=== PATIENT | female | born 1955 | race American Indian/Alaskan Native ===

== ENCOUNTER 2016-06-21 21:26 | Emergency (ER) | payer MEDICAID, SELFPAY ==
[2016-06-21 22:43] LABS: Basophils % (Auto) 2.3 % (0.0-1.8); Eosinophils % (Auto) 2.2 % (0.0-4.3); Hematocrit 34.9 % (30.3-42.9); Hemoglobin 11.2 gm/dl (10.1-14.3); Mean Corpuscular HGB Conc 32 % (30-34); Mean Corpuscular Hemoglobin 26 pg (28-32); Mean Corpuscular Volume 81 fl (79-97); Platelet Count 217 K/mm3 (140-440); Red Blood Count 4.28 M/mm3 (3.65-5.03); Red Cell Distribution Width 15.1 % (13.2-15.2); White Blood Count 6.2 K/mm3 (4.5-11.0)
[2016-06-21 22:54] LABS: Anion Gap 20 mmol/L; BUN/Creatinine Ratio 15.71; Blood Urea Nitrogen 22 mg/dL (7-17); Calcium 9.1 mg/dL (8.4-10.2); Carbon Dioxide 23 mmol/L (22-30); Chloride 100.5 mmol/L (98-107); Glucose 178 mg/dL (65-100); Potassium 3.8 mmol/L (3.6-5.0); Sodium 140 mmol/L (137-145)
[2016-06-22 02:21] VITALS: BP 162/98
== END 2016-06-22 02:17 | disposition left against medical advice (07) ==
LOC: ED 21:26
DX: R07.9 Chest pain, unspecified (principal); Z53.21 Procedure and treatment not carried out due to patient leaving prior to being seen by health care provider
CPT/HCPCS: 36415; 80048; 84484; 85025; 93005; 93010

== ENCOUNTER 2017-12-23 12:06 | Emergency (ER) | payer MEDICAID ==
[2017-12-23 13:14] LABS: Basophils % (Auto) 0.6 % (0.0-1.8); Eosinophils # (Auto) 0.1 K/mm3 (0.0-0.4); Eosinophils % (Auto) 0.7 % (0.0-4.3); Hematocrit 32.3 % (30.3-42.9); Hemoglobin 10.5 gm/dl (10.1-14.3); Lymphocytes # (Auto) 1.9 K/mm3 (1.2-5.4); Lymphocytes % (Auto) 23.2 % (13.4-35.0); Mean Corpuscular HGB Conc 33 % (30-34); Mean Corpuscular Hemoglobin 26 pg (28-32); Mean Corpuscular Volume 80 fl (79-97); Monocytes # (Auto) 0.6 K/mm3 (0.0-0.8); Monocytes % (Auto) 7.5 % (0.0-7.3); Platelet Count 332 K/mm3 (140-440); Red Blood Count 4.03 M/mm3 (3.65-5.03); Red Cell Distribution Width 17.3 % (13.2-15.2)
--- NOTE | 2017-12-23 13:16 | Emergency Department Report ---
ED Psych HPI - General Chief Complaint: Psych Stated Complaint: MENTAL EVAL/SUICIDAL Time Seen by Provider: 12/23/17 13:01 Source: patient Mode of arrival: Ambulatory - History of Present Illness Initial Comments: Patient is 62 years old female with history of hypertension and sarcoidosis. Patient presented to the ER complaining OF left-sided chest pain started last night described her pain as sharp and does not radiate. She stated that pain increases when she takes a deep breath. Patient denied any cough or fever or shortness of breath. Patient was sent from her primary care physician for evaluation of suicidal thoughts. Patient stated that she's been very depressed for the last 2 weeks. She stated that she lost a love one six month ago and since then she was not feeling better. Family members who accompanied the patient stated that patient was seen holding a knife trying to cut herself but as soon as she saw them, she stopped. Patient admitted of suicidal thoughts. She denied any homicidal ideation. Patient also denied any auditory or visual hallucination. MD Complaint: suicidal ideation, feels depressed - Related Data Home Medications Medication Instructions Recorded Confirmed Last Taken Insulin Aspart Prot/Aspart(Nf) 30 units SQ AMHY 11/22/12 11/22/12 11/21/12 [Novolog Mix 70/30] 30 units Lisinopril [Zestril] 40 mg PO QDAY 11/22/12 11/22/12 11/22/12 08:20 40mg Metformin HCl [Glumetza] 1,000 mg PO QDAY 11/22/12 12/23/17 11/21/12 100 mg Pregabalin [Lyrica] 50 mg PO DAILY 11/22/12 12/23/17 11/22/12 08:18 20 mg amLODIPine [Norvasc] 10 mg PO DAILY 11/22/12 12/23/17 Unknown Previous Rx's Medication Instructions Recorded Last Taken Type Ibuprofen [Motrin] 600 mg PO Q8H PRN #30 tablet 11/22/12 Unknown Rx Nitrofurantoin Macrocrystal 100 mg PO BID #14 capsule 12/16/17 Unknown Rx [Macrodantin] Phenazopyridine [Pyridium] 100 mg PO TID #9 tab 12/16/17 Unknown Rx Allergies Allergy/AdvReac Type Severity Reaction Status Date / Time No Known Allergies Allergy Verified 12/23/17 12:28 ED Review of Systems ROS: Stated complaint: MENTAL EVAL/SUICIDAL Other details as noted in HPI Comment: All other systems reviewed and negative Constitutional: denies: chills, fever Respiratory: denies: cough, orthopnea, shortness of breath, SOB with exertion, SOB at rest, wheezing Cardiovascular: chest pain Gastrointestinal: denies: abdominal pain, nausea, vomiting Musculoskeletal: denies: back pain Neurological: denies: headache, weakness, numbness, paresthesias, confusion, abnormal gait ED Past Medical Hx - Past Medical History Hx Hypertension: Yes Hx Diabetes: Yes Additional medical history: Shingles, Sarcadosis - Surgical History Additional Surgical History: Back Surgery, c section - Social History Smoking Status: Never Smoker Substance Use Type: None - Medications Home Medications: Home Medications Medication Instructions Recorded Confirmed Last Taken Type Ibuprofen [Motrin] 600 mg PO Q8H PRN #30 tablet 11/22/12 12/23/17 Unknown Rx Insulin Aspart Prot/Aspart(Nf) 30 units SQ AMHY 11/22/12 11/22/12 11/21/12 History [Novolog Mix 70/30] 30 units Lisinopril [Zestril] 40 mg PO QDAY 11/22/12 11/22/12 11/22/12 08:20 History 40mg Metformin HCl [Glumetza] 1,000 mg PO QDAY 11/22/12 12/23/17 11/21/12 History 100 mg Pregabalin [Lyrica] 50 mg PO DAILY 11/22/12 12/23/17 11/22/12 08:18 History 20 mg amLODIPine [Norvasc] 10 mg PO DAILY 11/22/12 12/23/17 Unknown History Nitrofurantoin Macrocrystal 100 mg PO BID #14 capsule 12/16/17 12/23/17 Unknown Rx [Macrodantin] Phenazopyridine [Pyridium] 100 mg PO TID #9 tab 12/16/17 12/23/17 Unknown Rx ED Physical Exam - General Limitations: No Limitations General appearance: alert, in no apparent distress, other (depressed) - Eye Eye exam: Present: normal appearance, PERRL - ENT ENT exam: Present: normal exam, normal orophraynx, mucous membranes moist - Neck Neck exam: Present: normal inspection, full ROM. Absent: tenderness, meningismus, lymphadenopathy, thyromegaly - Respiratory Respiratory exam: Present: normal lung sounds bilaterally. Absent: respiratory distress, wheezes, rales, rhonchi, stridor, accessory muscle use, decreased breath sounds, prolonged expiratory - Cardiovascular Cardiovascular Exam: Present: regular rate, normal rhythm, normal heart sounds - GI/Abdominal GI/Abdominal exam: Present: soft, normal bowel sounds. Absent: distended, tenderness, guarding, rebound, rigid, mass, bruit, pulsatile mass, hernia - Extremities Exam Extremities exam: Present: normal inspection, full ROM, normal capillary refill. Absent: pedal edema, calf tenderness - Back Exam Back exam: Present: normal inspection, full ROM. Absent: CVA tenderness (L), muscle spasm, paraspinal tenderness - Neurological Exam Neurological exam: Present: alert, oriented X3, CN II-XII intact, normal gait, reflexes normal - Psychiatric Psychiatric exam: Present: depressed, suicidal ideation. Absent: agitated, anxious, flat affect, manic, homicidal ideation - Skin Skin exam: Present: warm, intact, normal color ED Course Vital Signs 12/23/17 12:29 Temperature 98.2 F Pulse Rate 93 H Respiratory 16 Rate Blood Pressure 171/94 O2 Sat by Pulse 96 Oximetry ED Medical Decision Making - Lab Data Result diagrams: 12/23/17 12:40 12/23/17 12:40 - EKG Data -: EKG Interpreted by [facility] EKG shows normal: sinus rhythm Rate: normal - EKG Data Interpretation: no acute changes - Radiology Data Radiology results: report reviewed Referring Physician: KYLIE ROMERO Patient Name: FELIPA ORONA Date of : 1955 Sex: Female Report Date: 2017-12-23 Report Status: Finalized Findings [facility] [address] [place] [address] Cat Scan Report Signed Patient: FELIPA ORONA MR#: [id number] : 1955 Acct:[id number] Age/Sex: 62 / F ADM Date: 12/23/17 Loc: ED Attending Dr: Ordering Physician: KYLIE ROMERO Date of Service: 12/23/17 Procedure(s): CT angio chest Accession Number(s): [id number] cc: KYLIE ROMERO FINAL REPORT PROCEDURE: CT ANGIO CHEST TECHNIQUE: Computerized axial tomographic angiography of the chest and pulmonary arteries was performed after the IV injection of iodinated nonionic contrast. The image data was postprocessed using maximum intensity projection (MIP) and 2-dimensional multiplanar reformatted (MPR) techniques. The examination is specifically tailored to the evaluation of the pulmonary arteries per clinical request. HISTORY: Short of breath 786.09, chest pain 786.50, CHEST PAIN COMPARISON: No prior studies are available for comparison. FINDINGS: Heart and pericardium: No pericardial effusion or thickening. Thoracic aorta: Normal. Pulmonary vasculature: Normal. No pulmonary emboli. Lymph nodes: No enlarged thoracic lymph nodes. Lungs: Normal. Pleural space: No effusion, thickening, or pneumothorax. Musculoskeletal structures: No significant abnormality. Upper abdominal structures: No significant abnormality. IMPRESSION: No pulmonary emboli are identified. Transcribed By: [facility] Dictated By: MAICOL MENDOZA M.D. Electronically Authenticated By: MAICOL MENDOZA M.D. Signed Date/Time: 12/23/171554 DD/ 54 TD/TT: 12/23/171554 - Medical Decision Making Ms Orona is 62 years old female with history of hypertension and sarcoidosis. Patient presented to the ER complaining OF left-sided chest pain started last night described her pain as sharp and does not radiate. She stated that pain increases when she takes a deep breath. Patient denied any cough or fever or shortness of breath. Patient was sent from her primary care physician for evaluation of suicidal thoughts. Patient stated that she's been very depressed for the last 2 weeks. She stated that she lost a love one six month ago and since then she was not feeling better. Family members who accompanied the patient stated that patient was seen holding a knife trying to cut herself but as soon as she saw them, she stopped. Patient admitted of suicidal thoughts. She denied any homicidal ideation. Patient also denied any auditory or visual hallucination. In the ER, patient EKG is negative for ST elevation or depression. 2 sets of troponin is negative. Patient d-dimer slightly up and chest CTA is negative for pulmonary embolism. Patient is very tender to palpation on the left upper chest. I believe her symptoms is most likely costochondritis. Patient given Toradol and stated that her symptoms is much better. Patient has been assessed by our psychiatric team and waiting for inpatient psychiatric placement. Critical care attestation.: If time is entered above; I have spent that time in minutes in the direct care of this critically ill patient, excluding procedure time. ED Disposition Clinical Impression: Chest pain, Suicidal ideation, Depression Disposition: DC/TX-65 PSY HOSP/PSY UNIT Is pt being admited?: No Condition: Stable Instructions: Chest Pain (ED) Referrals: PRIMARY CARE, [Primary Care Provider] - 3-5 Days
[2017-12-23 13:33] LABS: Calcium 9.2 mg/dL (8.4-10.2)
[2017-12-23 13:41] LABS: Bacteria,Urine 1+ /HPF (Negative); Bilirubin,Urine NEG (Negative); Blood,Urine SM (Negative); Color,Urine Yellow (Yellow); Hyaline Casts,Urine 2 /LPF; Mucus,Urine FEW /HPF; Protein,Urine <15 mg/dL mg/dL (Negative)
[2017-12-23 13:43] LABS: Amphetamine Screen,Urine PRESUMPTIVE NEGATIVE; Benzodiazepines Screen,Urine PRESUMPTIVE NEGATIVE; Cocaine Screen,Urine PRESUMPTIVE NEGATIVE; Methadone Screen,Urine PRESUMPTIVE NEGATIVE; Opiate Screen,Urine PRESUMPTIVE NEGATIVE
[2017-12-23 13:44] LABS: Urobilinogen,Urine < 2.0 mg/dL (<2.0)
[2017-12-23 13:55] LABS: Cannabinoid Screen,Urine PRESUMPTIVE POSITIVE
[2017-12-23] MEDS ORDERED: NACL 0.9% 1000 ML 1,000 ML IV ONE (14:06)
--- NOTE | 2017-12-23 15:57 | Cat Scan Report ---
FINAL REPORT PROCEDURE: CT ANGIO CHEST TECHNIQUE: Computerized axial tomographic angiography of the chest and pulmonary arteries was performed after the IV injection of iodinated nonionic contrast. The image data was postprocessed using maximum intensity projection (MIP) and 2-dimensional multiplanar reformatted (MPR) techniques. The examination is specifically tailored to the evaluation of the pulmonary arteries per clinical request. HISTORY: Short of breath 786.09, chest pain 786.50, CHEST PAIN COMPARISON: No prior studies are available for comparison. FINDINGS: Heart and pericardium: No pericardial effusion or thickening. Thoracic aorta: Normal. Pulmonary vasculature: Normal. No pulmonary emboli. Lymph nodes: No enlarged thoracic lymph nodes. Lungs: Normal. Pleural space: No effusion, thickening, or pneumothorax. Musculoskeletal structures: No significant abnormality. Upper abdominal structures: No significant abnormality. IMPRESSION: No pulmonary emboli are identified.
[2017-12-24] LABS: Alanine Aminotransferase 6 units/L (7-56); Albumin 3.5 g/dL (3.9-5); LDL Cholesterol,Direct 104 mg/dL (50-130)
[2017-12-24 00:41] LABS: Bilirubin,Direct < 0.2 mg/dL (0-0.2)
[2017-12-24 01:16] LABS: Chol/HDL Ratio 3.68 %; HDL Cholesterol 47 mg/dL (40-59)
[2017-12-24] MEDS ORDERED: NON-FORMULARY (Insulin Aspart Prot/Aspart(Nf) 30 UNITS) SQ SCH (09:15)
[2017-12-24] MEDS ORDERED: NITROFURANTOIN MACROCRYSTAL 100 MG PO SCH (10:00)
[2017-12-24] MEDS ORDERED: NORVASC PO SCH (10:00)
[2017-12-24] MEDS ORDERED: MACROBID PO SCH (10:00)
[2017-12-24] MEDS ORDERED: PYRIDIUM PO ONE (10:23)
[2017-12-24 11:07] VITALS: BP 171/90
[2017-12-24] MEDS ORDERED: PYRIDIUM PO SCH (14:00)
== END 2017-12-24 11:25 ==
LOC: ED 12:06
DX: F32.9 Major depressive disorder, single episode, unspecified (principal); R07.89 Other chest pain; I10 Essential (primary) hypertension; D86.9 Sarcoidosis, unspecified; E11.9 Type 2 diabetes mellitus without complications; Z79.4 Long term (current) use of insulin
CPT/HCPCS: 36415; 71275; 80048; 80061; 80074; 80307; 81001; 82607; 84443; 84484; 85025; 85379; 86592; 93005; 93010; 96372; 99285; G0480; J7030; Q9967; 80320; J1815

== ENCOUNTER 2018-03-08 14:00 | Emergency (ER) | payer MEDICAID ==
[2018-03-08] MEDS ORDERED: ASPIRIN PO ONE (14:52)
[2018-03-08] MEDS ORDERED: ZOFRAN IV ONE (15:46)
[2018-03-08] MEDS ORDERED: TORADOL IV ONE (15:46)
[2018-03-08] MEDS ORDERED: DILAUDID IV ONE (15:46)
[2018-03-08 15:48] LABS: Basophils % (Auto) 0.6 % (0.0-1.8); Eosinophils % (Auto) 0.6 % (0.0-4.3); Hematocrit 32.7 % (30.3-42.9); Hemoglobin 10.7 gm/dl (10.1-14.3); Lymphocytes # (Auto) 2.1 K/mm3 (1.2-5.4); Lymphocytes % (Auto) 32.5 % (13.4-35.0); Mean Corpuscular HGB Conc 33 % (30-34); Mean Corpuscular Volume 83 fl (79-97); Monocytes # (Auto) 0.6 K/mm3 (0.0-0.8); Monocytes % (Auto) 9.1 % (0.0-7.3); Platelet Count 242 K/mm3 (140-440); Red Blood Count 3.94 M/mm3 (3.65-5.03); Red Cell Distribution Width 16.7 % (13.2-15.2)
[2018-03-08 15:55] LABS: INR 0.99 (0.87-1.13)
[2018-03-08 16:19] LABS: BUN/Creatinine Ratio 19; Blood Urea Nitrogen 21 mg/dL (7-17); Calcium 9.2 mg/dL (8.4-10.2); Hemolysis Index 2
[2018-03-08 16:22] LABS: Alanine Aminotransferase 16 units/L (7-56); Albumin 4.2 g/dL (3.9-5)
[2018-03-08 16:27] LABS: Bilirubin,Direct < 0.2 mg/dL (0-0.2)
[2018-03-08] MEDS ORDERED: K-DUR PO ONE (16:42)
--- NOTE | 2018-03-08 16:42 | XRay Report ---
FINAL REPORT EXAM: XR CHEST ROUTINE 2V HISTORY: cp COMPARISON: CT of the chest performed on 12/23/2017 TECHNIQUE: Frontal and lateral views of the chest FINDINGS: The cardiomediastinal silhouette is normal in appearance. The lungs are clear without focal consolidation. No pleural effusion or pneumothorax. No acute bony or soft tissue abnormality. IMPRESSION: No acute cardiopulmonary disease.
[2018-03-08] MEDS ORDERED: NORCO 5/325 PO ONE (17:23)
--- NOTE | 2018-03-08 17:27 | Emergency Department Report ---
ED Chest Pain HPI - General Chief Complaint: Chest Pain Stated Complaint: CHEST PAIN Time Seen by Provider: 03/08/18 15:06 Source: patient, EMS Mode of arrival: Stretcher Limitations: No Limitations - History of Present Illness Initial Comments: 62-year-old female with a past medical history of diabetes, hypertension, shingles, and sarcoidosis presents to hospital pending on that side chest pain since last night. Pain is intense pain is moderate to severe, sharp, worse with palpation, movement, and deep inspiration. Intermittent nausea. Shortness of breath secondary to pain with deep inspiration. Dry cough without fevers. She denies calf tenderness or leg edema. Severity scale (0 -10): 0 - Related Data Home Medications Medication Instructions Recorded Confirmed Last Taken Insulin Aspart Prot/Aspart(Nf) 30 units SQ AMHY 11/22/12 12/24/17 12/23/17 [Novolog Mix 70/30] Lisinopril [Zestril] 40 mg PO QDAY 11/22/12 12/24/17 12/23/17 Metformin HCl [Glumetza] 1,000 mg PO QDAY 11/22/12 12/23/17 11/21/12 100 mg Pregabalin [Lyrica] 50 mg PO DAILY 11/22/12 12/23/17 11/22/12 08:18 20 mg amLODIPine [Norvasc] 10 mg PO DAILY 11/22/12 12/23/17 Unknown Previous Rx's Medication Instructions Recorded Last Taken Type Ibuprofen [Motrin] 600 mg PO Q8H PRN #30 tablet 11/22/12 Unknown Rx Nitrofurantoin Macrocrystal 100 mg PO BID #14 capsule 12/16/17 Unknown Rx [Macrodantin] Phenazopyridine [Pyridium] 100 mg PO TID #9 tab 12/16/17 Unknown Rx HYDROcodone/APAP 5-325 [Lamoni 1 each PO Q6HR PRN #14 tablet 03/08/18 Unknown Rx 5/325] Ibuprofen [Motrin] 800 mg PO Q8HR PRN #30 tablet 03/08/18 Unknown Rx Ondansetron [Zofran Odt] 4 mg PO Q8HR PRN #20 tab.rapdis 03/08/18 Unknown Rx Allergies Allergy/AdvReac Type Severity Reaction Status Date / Time No Known Allergies Allergy Verified 12/23/17 12:28 Heart Score - HEART Score History: Slightly suspicious EKG: Non-specific Age: > 65 Risk factors: > 3 risk factors or hx of atherosclerotic disease Troponin: < normal limit HEART Score: 5 ED Review of Systems ROS: Stated complaint: CHEST PAIN Other details as noted in HPI Comment: All other systems reviewed and negative ED Past Medical Hx - Past Medical History Hx Hypertension: Yes Hx Diabetes: Yes Additional medical history: Shingles, Sarcadosis - Surgical History Additional Surgical History: Back Surgery, c section - Social History Smoking Status: Never Smoker - Medications Home Medications: Home Medications Medication Instructions Recorded Confirmed Last Taken Type Ibuprofen [Motrin] 600 mg PO Q8H PRN #30 tablet 11/22/12 12/23/17 Unknown Rx Insulin Aspart Prot/Aspart(Nf) 30 units SQ AMHY 11/22/12 12/24/17 12/23/17 History [Novolog Mix 70/30] Lisinopril [Zestril] 40 mg PO QDAY 11/22/12 12/24/17 12/23/17 History Metformin HCl [Glumetza] 1,000 mg PO QDAY 11/22/12 12/23/17 11/21/12 History 100 mg Pregabalin [Lyrica] 50 mg PO DAILY 11/22/12 12/23/17 11/22/12 08:18 History 20 mg amLODIPine [Norvasc] 10 mg PO DAILY 11/22/12 12/23/17 Unknown History Nitrofurantoin Macrocrystal 100 mg PO BID #14 capsule 12/16/17 12/23/17 Unknown Rx [Macrodantin] Phenazopyridine [Pyridium] 100 mg PO TID #9 tab 12/16/17 12/23/17 Unknown Rx HYDROcodone/APAP 5-325 [Lamoni 1 each PO Q6HR PRN #14 tablet 03/08/18 Unknown Rx 5/325] Ibuprofen [Motrin] 800 mg PO Q8HR PRN #30 tablet 03/08/18 Unknown Rx Ondansetron [Zofran Odt] 4 mg PO Q8HR PRN #20 tab.rapdis 03/08/18 Unknown Rx ED Physical Exam - General Limitations: No Limitations - Other Other exam information: General: No limitations, patient is alert in no acute distress Head exam: Atraumatic, normocephalic Eyes exam: Normal appearance, pupils equal reactive to light, extraocular movements intact ENT: Moist mucous membrane, normal oropharynx Neck exam: Normal inspection, full range of motion, no meningismus nontender Respiratory exam: Clear to auscultation bilateral, no wheezes, rales, crackles Cardiovascular: Normal rate and rhythm, reproducible left anterior chest wall tenderness to left upper chest wall Abdomen: Soft, nondistended, and nontender, with normal bowel sounds, no rebound, or guarding Extremity: Full range of motion normal inspection no deformity, no calf tenderness or edema Back: Normal Inspection, full range of motion, no tenderness Neurologic: Alert, oriented x3, cranial nerves intact, no motor or sensory deficit Psychiatric: normal affect, normal mood Skin: Warm, dry, intact ED Course Vital Signs 03/08/18 03/08/18 03/08/18 14:52 15:27 16:05 Temperature 98.4 F Pulse Rate 89 Respiratory 16 16 15 Rate Blood Pressure 158/76 [Left] O2 Sat by Pulse 100 100 Oximetry 03/08/18 03/08/18 16:35 16:52 Temperature 98.3 F Pulse Rate 78 Respiratory 17 17 Rate Blood Pressure 105/78 [Left] O2 Sat by Pulse 98 Oximetry JULIO score - Julio Score Age > 65: (0) No Aspirin use within the Past 7 Days: (0) No 3 or more CAD Risk Factors: (1) Yes 2 or more Angina events in past 24 hrs: (0) No Known CAD with more than 50% Stenosis: (0) No Elevated Cardiac Markers: (0) No ST Deviation Greater than 0.5mm: (0) No JULIO Score: 1 ED Medical Decision Making - Lab Data Result diagrams: 03/08/18 15:16 03/08/18 15:16 Lab Results 03/08/18 03/08/18 03/08/18 Range/Units 15:16 15:16 15:16 WBC 6.4 (4.5-11.0) K/mm3 RBC 3.94 (3.65-5.03) M/mm3 Hgb 10.7 (10.1-14.3) gm/dl Hct 32.7 (30.3-42.9) % MCV 83 (79-97) fl MCH 27 L (28-32) pg MCHC 33 (30-34) % RDW 16.7 H (13.2-15.2) % Plt Count 242 (140-440) K/mm3 Lymph % (Auto) 32.5 (13.4-35.0) % [place] % (Auto) 9.1 H (0.0-7.3) % Eos % (Auto) 0.6 (0.0-4.3) % Baso % (Auto) 0.6 (0.0-1.8) % Lymph # 2.1 (1.2-5.4) K/mm3 [place] # 0.6 (0.0-0.8) K/mm3 Eos # 0.0 (0.0-0.4) K/mm3 Baso # 0.0 (0.0-0.1) K/mm3 Seg Neutrophils % 57.2 (40.0-70.0) % Seg Neutrophils # 3.7 (1.8-7.7) K/mm3 PT 13.5 (12.2-14.9) Sec. INR 0.99 (0.87-1.13) D-Dimer (0-234) ng/mlDDU Sodium 141 (137-145) mmol/L Potassium 3.4 L (3.6-5.0) mmol/L Chloride 101.7 (98-107) mmol/L Carbon Dioxide 25 (22-30) mmol/L Anion Gap 18 mmol/L BUN 21 H (7-17) mg/dL Creatinine 1.1 (0.7-1.2) mg/dL Estimated GFR > 60 ml/min BUN/Creatinine Ratio 19 % Glucose 60 L (65-100) mg/dL Calcium 9.2 (8.4-10.2) mg/dL Total Bilirubin (0.1-1.2) mg/dL Direct Bilirubin (0-0.2) mg/dL Indirect Bilirubin mg/dL AST (5-40) units/L ALT (7-56) units/L Alkaline Phosphatase (35-129) units/L Troponin T < 0.010 (0.00-0.029) ng/mL Total Protein (6.3-8.2) g/dL Albumin (3.9-5) g/dL Albumin/Globulin Ratio % Lipase (13-60) units/L 03/08/18 03/08/18 03/08/18 Range/Units 15:16 15:42 16:42 WBC (4.5-11.0) K/mm3 RBC (3.65-5.03) M/mm3 Hgb (10.1-14.3) gm/dl Hct (30.3-42.9) % MCV (79-97) fl MCH (28-32) pg MCHC (30-34) % RDW (13.2-15.2) % Plt Count (140-440) K/mm3 Lymph % (Auto) (13.4-35.0) % [place] % (Auto) (0.0-7.3) % Eos % (Auto) (0.0-4.3) % Baso % (Auto) (0.0-1.8) % Lymph # (1.2-5.4) K/mm3 [place] # (0.0-0.8) K/mm3 Eos # (0.0-0.4) K/mm3 Baso # (0.0-0.1) K/mm3 Seg Neutrophils % (40.0-70.0) % Seg Neutrophils # (1.8-7.7) K/mm3 PT (12.2-14.9) Sec. INR (0.87-1.13) D-Dimer 237.8 H (0-234) ng/mlDDU Sodium (137-145) mmol/L Potassium (3.6-5.0) mmol/L Chloride (98-107) mmol/L Carbon Dioxide (22-30) mmol/L Anion Gap mmol/L BUN (7-17) mg/dL Creatinine (0.7-1.2) mg/dL Estimated GFR ml/min BUN/Creatinine Ratio % Glucose (65-100) mg/dL Calcium (8.4-10.2) mg/dL Total Bilirubin 0.20 (0.1-1.2) mg/dL Direct Bilirubin < 0.2 (0-0.2) mg/dL Indirect Bilirubin 0.0 mg/dL AST 18 (5-40) units/L ALT 16 (7-56) units/L Alkaline Phosphatase 91 (35-129) units/L Troponin T < 0.010 (0.00-0.029) ng/mL Total Protein 7.2 (6.3-8.2) g/dL Albumin 4.2 (3.9-5) g/dL Albumin/Globulin Ratio 1.4 % Lipase 39 (13-60) units/L - EKG Data -: EKG Interpreted by Me EKG shows normal: sinus rhythm, axis (qrs 29), QRS complexes (qrsd 88), ST-T waves (no stemi) Rate: normal (72) - EKG Data When compared to previous EKG there are: no significant change - Radiology Data Radiology results: report reviewed (cxr: naf) - Medical Decision Making Patient has reproducible left anterior chest wall tenderness movement and palpation as well as deep inspiration. Symptoms improving with meds in the ED. ED workup unremarkable with cardiac enzymes negative 2, EKG unchanged compared to previous and a d-dimer less than 250. Patient be discharged home with symptomatic treatment and PMD follow-up. - Differential Diagnosis [place], PE, chest wall tenderness, costochondritis, pneumothorax, pleurisy Critical Care Time: No Critical care attestation.: If time is entered above; I have spent that time in minutes in the direct care of this critically ill patient, excluding procedure time. ED Disposition Clinical Impression: Chest wall pain Disposition: DC- TO HOME OR SELFCARE Is pt being admited?: No Does the pt Need Aspirin: No Condition: Stable Instructions: Chest Pain (ED) Additional Instructions: Take the medication as prescribed. Follow up with your doctor or the doctors/clinic provided. Return if symptoms worsen as indicated by your discharge instructions Prescriptions: HYDROcodone/APAP 5-325 [Lamoni 5/325] 1 each PO Q6HR PRN #14 tablet PRN Reason: Pain Ibuprofen [Motrin] 800 mg PO Q8HR PRN #30 tablet PRN Reason: Pain, Moderate (4-6) Ondansetron [Zofran Odt] 4 mg PO Q8HR PRN #20 tab.rapdis PRN Reason: Nausea And Vomiting Referrals: PRIMARY CARE, [Primary Care Provider] - 3-5 Days [facility] [Provider Group] - 3-5 Days ISHMAEL AGUIRRE DO [Staff Physician] - 3-5 Days Time of Disposition: 17:31
[2018-03-08 19:03] VITALS: BP 122/78
== END 2018-03-08 18:52 | disposition home or self-care (01) ==
LOC: ED 14:00
DX: R07.89 Other chest pain (principal); R11.0 Nausea; R06.02 Shortness of breath; I10 Essential (primary) hypertension; E11.9 Type 2 diabetes mellitus without complications; Z79.4 Long term (current) use of insulin
CPT/HCPCS: 36415; 71046; 80048; 80076; 83690; 84484; 85025; 85379; 85610; 93005; 93010; 96374; 96375; 99285; J1170; J1885; J2405

== ENCOUNTER 2019-02-05 12:27 | Emergency (ER) | payer MEDICAID ==
[2019-02-05 13:08] VITALS: BP 146/89
--- NOTE | 2019-02-05 13:10 | Event Note ---
ED Screening Note Date of service: 02/05/19 Time: 13:09 ED Screening Note: 63 y o female with a pmh of Diabetes presents with right flank pain This initial assessment/diagnostic orders/clinical plan/treatment(s) is/are subject to change based on patients health status, clinical progression and re- assessment by fellow clinical providers in the ED. Further treatment and workup at subsequent clinical providers discretion. Patient/guardian urged not to elope from the ED as their condition may be serious if not clinically assessed and managed. Initial orders include: ua,cbc,cmp
[2019-02-05 13:56] LABS: Basophils % (Auto) 0.8 % (0.0-1.8); Eosinophils # (Auto) 0.1 K/mm3 (0.0-0.4); Eosinophils % (Auto) 1.5 % (0.0-4.3); Hematocrit 31.9 % (30.3-42.9); Hemoglobin 10.4 gm/dl (10.1-14.3); Lymphocytes # (Auto) 0.9 K/mm3 (1.2-5.4); Mean Corpuscular HGB Conc 33 % (30-34); Mean Corpuscular Volume 83 fl (79-97); Monocytes # (Auto) 0.4 K/mm3 (0.0-0.8); Monocytes % (Auto) 6.9 % (0.0-7.3); Platelet Count 277 K/mm3 (140-440); Red Blood Count 3.84 M/mm3 (3.65-5.03); Red Cell Distribution Width 16.7 % (13.2-15.2)
[2019-02-05 14:13] LABS: Albumin 4.4 g/dL (3.9-5); Calcium 9.1 mg/dL (8.4-10.2)
[2019-02-05 14:52] LABS: Bacteria,Urine 1+ /HPF (Negative); Bilirubin,Urine NEG (Negative); Blood,Urine NEG (Negative); Color,Urine Yellow (Yellow); Mucus,Urine FEW /HPF; Protein,Urine <15 mg/dL mg/dL (Negative); Urobilinogen,Urine < 2.0 mg/dL (<2.0)
--- NOTE | 2019-02-05 15:46 | Emergency Department Report ---
HPI - General Chief Complaint: Back Pain/Injury Time Seen by Provider: 02/05/19 15:41 - HPI HPI: 63-year-old -Turkish female presents to the emergency department with a complaint of some right-sided low back and flank pain that has been going on si nce last night. It appears to be spasmodic and worsens with movements and palpation. She denies any injury. She denies any burning with urination, urinary retention, constipation or diarrhea, hematuria. She has not taken anything for her symptoms prior to presentation. She made an appointment to go see her PCP, Dr. Molina Elizabeth, but was told to come to the emergency department for further evaluation. She has a past nuchal history of hypertension, diabetes, sarcoidosis and some mild renal insufficiency. ED Past Medical Hx - Past Medical History Previous Medical History?: Yes Hx Hypertension: Yes Hx Diabetes: Yes Additional medical history: Shingles, Sarcadosis - Surgical History Past Surgical History?: Yes Additional Surgical History: Back Surgery, c section - Social History Smoking Status: Never Smoker Substance Use Type: None - Medications Home Medications: Home Medications Medication Instructions Recorded Confirmed Last Taken Type Ibuprofen [Motrin] 600 mg PO Q8H PRN #30 tablet 11/22/12 12/23/17 Unknown Rx Insulin Aspart Prot/Aspart(Nf) 30 units SQ AMHY 11/22/12 12/24/17 12/23/17 History [Novolog Mix 70/30] Lisinopril [Zestril] 40 mg PO QDAY 11/22/12 12/24/17 12/23/17 History 40 mg Metformin HCl [Glumetza] 1,000 mg PO QDAY 11/22/12 12/23/17 11/21/12 History 100 mg Pregabalin [Lyrica] 50 mg PO DAILY 11/22/12 12/23/17 11/22/12 08:18 History 20 mg amLODIPine [Norvasc] 10 mg PO DAILY 11/22/12 12/23/17 Unknown History Nitrofurantoin Macrocrystal 100 mg PO BID #14 capsule 12/16/17 12/23/17 Unknown Rx [Macrodantin] Phenazopyridine [Pyridium] 100 mg PO TID #9 tab 12/16/17 12/23/17 Unknown Rx HYDROcodone/APAP 5-325 [Edson 1 each PO Q6HR PRN #14 tablet 03/08/18 Unknown Rx 5/325] Ibuprofen [Motrin] 800 mg PO Q8HR PRN #30 tablet 03/08/18 Unknown Rx Ondansetron [Zofran Odt] 4 mg PO Q8HR PRN #20 tab.rapdis 03/08/18 Unknown Rx Cyclobenzaprine [Flexeril] 10 mg PO TID PRN #12 tablet 02/05/19 Unknown Rx ED Review of Systems ROS: Stated complaint: LOWER BACK PAIN/RT Other details as noted in HPI Comment: All other systems reviewed and negative Constitutional: denies: chills, fever Respiratory: denies: cough, shortness of breath Cardiovascular: denies: chest pain Gastrointestinal: denies: abdominal pain Genitourinary: denies: dysuria, discharge Musculoskeletal: back pain Skin: denies: rash, lesions Neurological: denies: weakness, numbness Physical Exam - Physical Exam Vital Signs: Vital Signs 02/05/19 13:07 Temperature 97.8 F Pulse Rate 79 Respiratory 20 Rate Blood Pressure 146/89 O2 Sat by Pulse 100 Oximetry Physical Exam: GENERAL: The patient is well-developed well-nourished. HENT: Normocephalic. Atraumatic. EYES: Extraocular motions are intact. NECK: Supple. Trachea is midline. CHEST/LUNGS: Clear to auscultation. There is no respiratory distress noted. HEART/CARDIOVASCULAR: Regular. There is no tachycardia. ABDOMEN: Abdomen is soft, nontender. Patient has normal bowel sounds. There is no abdominal distention. SKIN: Skin is warm and dry. NEURO: The patient is awake, alert, and oriented. The patient is cooperative. The patient has no focal neurologic deficits. Normal speech. MUSCULOSKELETAL: There is no tenderness or deformity. There is no limitation range of motion. There is no evidence of acute injury. BACK: No midline thoracic or lumbar tenderness to palpation, step-off or deformity. There is some reproducible right lateral lumbar tenderness to palpation. ED Course Vital Signs 02/05/19 13:07 Temperature 97.8 F Pulse Rate 79 Respiratory 20 Rate Blood Pressure 146/89 O2 Sat by Pulse 100 Oximetry ED Medical Decision Making - Lab Data Result diagrams: 02/05/19 13:20 02/05/19 13:20 - Medical Decision Making This patient presents with some atraumatic right lower lateral back pain that started last night. There is no rash or lesions seen to that area of her skin. There is no midline tenderness to palpation, step-off or deformity but there is reproducible right sided lateral lumbar tenderness to palpation. Patient's labs were unremarkable including CBC, metabolic panel and urinalysis except for some mild renal insufficiency. There is no urinary tract infection or significant hematuria. Since the pain is reproducible to palpation and with certain movements it appears more likely to be musculoskeletal. She does not have any problems with bowel or bladder, numbness or paresthesias or any neurological deficits. She appears low suspicion for any of the emergent back condition such as cauda equina, epidural abscess or cord compression syndrome. The patient has been instructed to follow-up with primary care and if necessary an orthopedist. She has been given a prescription for some muscle relaxers and told to avoid any NSAIDs secondary to the renal insufficiency. She will return to the emergency Department with any worsening of her symptoms or any acute distress. - Differential Diagnosis muscle spasm, UTI, nephrolithiasis, shingles Critical Care Time: No Critical care attestation.: If time is entered above; I have spent that time in minutes in the direct care of this critically ill patient, excluding procedure time. ED Disposition Clinical Impression: Mild renal insufficiency Back pain Qualifiers: Back pain location: low back pain Chronicity: acute Back pain laterality: right Sciatica presence: without sciatica Qualified Code(s): M54.5 - Low back pain Disposition: TO HOME OR SELFCARE Is pt being admited?: No Condition: Stable Instructions: Acute Low Back Pain (ED) Additional Instructions: Please follow-up with your primary care physician in the next few days. I am also giving you a referral for a local orthopedist, Dr. Macias, to follow up regarding your back pain. Return to the emergency Department with any worsening of your symptoms or any acute distress. You have been prescribed a medication that is sedating and therefore should not be taken prior to driving, working, and responsible for children and in no way should be mixed with alcohol of any quantity. Prescriptions: Cyclobenzaprine [Flexeril] 10 mg PO TID PRN #12 tablet PRN Reason: Muscle Spasm Referrals: MOLINA ELIZABETH MD [Primary Care Provider] - 2-3 Days EDGARD MACIAS MD [Staff Physician] - 2-3 Days Time of Disposition: 15:47
== END 2019-02-05 16:03 | disposition home or self-care (01) ==
LOC: ED 12:27
DX: N28.9 Disorder of kidney and ureter, unspecified (principal); M54.5 Low back pain; I10 Essential (primary) hypertension; E11.9 Type 2 diabetes mellitus without complications; Z98.890 Other specified postprocedural states; Z79.1 Long term (current) use of non-steroidal anti-inflammatories (NSAID); Z79.899 Other long term (current) drug therapy
CPT/HCPCS: 36415; 80053; 81001; 85025

== ENCOUNTER 2019-02-22 17:01 | Emergency (ER) | payer MEDICAID ==
--- NOTE | 2019-02-22 19:20 | Event Note ---
ED Screening Note Date of service: 02/22/19 Time: 19:17 ED Screening Note: This is a 63 y.o. F. that presents to the ER with left elbow pain and swelling started last night. PCP Dr. Elizabeth [facility] of DM2, HTN, depression, and sarcodosis This initial assessment/diagnostic orders/clinical plan/treatment(s) is/are subject to change based on patients health status, clinical progression and re- assessment by fellow clinical providers in the ED. Further treatment and workup at subsequent clinical providers discretion. Patient/guardian urged not to elope from the ED as their condition may be serious if not clinically assessed and managed. Initial orders include: XR left elbow
--- NOTE | 2019-02-22 20:03 | XRay Report ---
LEFT ELBOW, 3 VIEWS 02/22/2019 INDICATION / CLINICAL INFORMATION: swelling and pain. COMPARISON: None available. FINDINGS: There is a evidence for a joint effusion. No evidence of fracture. There are mild degenerative changes in the medial compartment and lateral capitellar spurring. Signer Name: John Paul Dasilva MD Signed: 02/22/2019 7:59 PM Workstation Name: [id number]
--- NOTE | 2019-02-22 23:32 | Emergency Department Report ---
ED General Adult HPI - General Chief complaint: Extremity Injury, Upper Stated complaint: LFT ARM SWELLING/PAIN Time Seen by Provider: 02/22/19 19:17 Source: patient, RN notes reviewed, old records reviewed Mode of arrival: Ambulatory Limitations: No Limitations - History of Present Illness Initial comments: The patient is a pleasant 63-year-old female, left-hand dominant, with a history of hypertension and diabetes. She presents to the ER with a complaint of nontraumatic painful swelling of her left elbow. It started spontaneously within the past 24 hours. She denies trauma, denies other injuries and other complaints. She has partial but not complete range of motion of the elbow. She endorses that she had similar presentation in the past, and required a tap. She's not sure what the previous diagnosis was. She's not sure if she's had b ursitis, or gout. She is not sure if she's had septic joint in the past. -: Gradual Location: left, upper extremity Radiation: non-radiation Quality: aching Consistency: intermittent Improves with: movement, rest - Related Data Home Medications Medication Instructions Recorded Confirmed Last Taken Insulin Aspart Prot/Aspart(Nf) 30 units SQ AMHY 11/22/12 12/24/17 12/23/17 [Novolog Mix 70/30] Metformin HCl [Glumetza] 1,000 mg PO QDAY 11/22/12 12/23/17 11/21/12 100 mg Pregabalin [Lyrica] 50 mg PO DAILY 11/22/12 12/23/17 11/22/12 08:18 20 mg amLODIPine [Norvasc] 10 mg PO DAILY 11/22/12 12/23/17 Unknown lisinopriL [Zestril] 40 mg PO QDAY 11/22/12 12/24/17 12/23/17 40 mg Previous Rx's Medication Instructions Recorded Last Taken Type Ibuprofen [Motrin] 600 mg PO Q8H PRN #30 tablet 11/22/12 Unknown Rx Nitrofurantoin Macrocrystal 100 mg PO BID #14 capsule 12/16/17 Unknown Rx [Macrodantin] Phenazopyridine [Pyridium] 100 mg PO TID #9 tab 12/16/17 Unknown Rx HYDROcodone/APAP 5-325 [[place] 1 each PO Q6HR PRN #14 tablet 03/08/18 Unknown Rx 5/325] Ibuprofen [Motrin] 800 mg PO Q8HR PRN #30 tablet 03/08/18 Unknown Rx Ondansetron [Zofran Odt] 4 mg PO Q8HR PRN #20 tab.rapdis 03/08/18 Unknown Rx Cyclobenzaprine [Flexeril] 10 mg PO TID PRN #12 tablet 02/05/19 Unknown Rx Ibuprofen [Motrin] 600 mg PO Q8H PRN #30 tablet 02/23/19 Unknown Rx oxyCODONE /ACETAMINOPHEN [Percocet 1 tab PO Q6HR PRN #10 tablet 02/23/19 Unknown Rx 5/325] Allergies Allergy/AdvReac Type Severity Reaction Status Date / Time No Known Allergies Allergy Verified 02/22/19 17:08 ED Review of Systems ROS: Stated complaint: LFT ARM SWELLING/PAIN Other details as noted in HPI Constitutional: denies: fever Eyes: denies: eye discharge ENT: denies: congestion Respiratory: denies: wheezing Cardiovascular: denies: syncope Gastrointestinal: denies: abdominal pain Genitourinary: denies: urgency Musculoskeletal: joint swelling, arthralgia, myalgia Skin: denies: lesions Neurological: denies: weakness ED Past Medical Hx - Past Medical History Previous Medical History?: Yes Hx Hypertension: Yes Hx Diabetes: Yes Additional medical history: Shingles, Sarcadosis - Surgical History Past Surgical History?: Yes Additional Surgical History: Back Surgery, c section - Social History Smoking Status: Never Smoker Substance Use Type: None - Medications Home Medications: Home Medications Medication Instructions Recorded Confirmed Last Taken Type Ibuprofen [Motrin] 600 mg PO Q8H PRN #30 tablet 11/22/12 12/23/17 Unknown Rx Insulin Aspart Prot/Aspart(Nf) 30 units SQ AMHY 11/22/12 12/24/17 12/23/17 History [Novolog Mix 70/30] Metformin HCl [Glumetza] 1,000 mg PO QDAY 11/22/12 12/23/17 11/21/12 History 100 mg Pregabalin [Lyrica] 50 mg PO DAILY 11/22/12 12/23/17 11/22/12 08:18 History 20 mg amLODIPine [Norvasc] 10 mg PO DAILY 11/22/12 12/23/17 Unknown History lisinopriL [Zestril] 40 mg PO QDAY 11/22/12 12/24/17 12/23/17 History 40 mg Nitrofurantoin Macrocrystal 100 mg PO BID #14 capsule 12/16/17 12/23/17 Unknown Rx [Macrodantin] Phenazopyridine [Pyridium] 100 mg PO TID #9 tab 12/16/17 12/23/17 Unknown Rx HYDROcodone/APAP 5-325 [[place] 1 each PO Q6HR PRN #14 tablet 03/08/18 Unknown Rx 5/325] Ibuprofen [Motrin] 800 mg PO Q8HR PRN #30 tablet 03/08/18 Unknown Rx Ondansetron [Zofran Odt] 4 mg PO Q8HR PRN #20 tab.rapdis 03/08/18 Unknown Rx Cyclobenzaprine [Flexeril] 10 mg PO TID PRN #12 tablet 02/05/19 Unknown Rx Ibuprofen [Motrin] 600 mg PO Q8H PRN #30 tablet 02/23/19 Unknown Rx oxyCODONE /ACETAMINOPHEN [Percocet 1 tab PO Q6HR PRN #10 tablet 02/23/19 Unknown Rx 5/325] ED Physical Exam - General Limitations: No Limitations General appearance: alert, in no apparent distress - Head Head exam: Present: atraumatic, normocephalic - Eye Eye exam: Present: normal appearance, EOMI - ENT ENT exam: Present: normal exam, normal orophraynx, mucous membranes moist, normal external ear exam - Neck Neck exam: Present: normal inspection, full ROM. Absent: tenderness, meningismus - Respiratory Respiratory exam: Present: normal lung sounds bilaterally. Absent: respiratory distress - Cardiovascular Cardiovascular Exam: Present: regular rate, normal rhythm, normal heart sounds. Absent: bradycardia, tachycardia, irregular rhythm, systolic murmur, diastolic murmur, rubs, gallop - GI/Abdominal GI/Abdominal exam: Present: soft. Absent: distended, tenderness, guarding, rebound, rigid, pulsatile mass - Extremities Exam Extremities exam: Present: normal inspection, tenderness (the left elbow is swollen and tender. There is partial but not complete active and passive range of motion in the left elbow. There is joint warmth noted. There is no redness, pus or streaking. Patient is noted to be flexing and extending the elbow, although not completely.), other (2+ pulses noted in the bilateral upper and lower extremities. The pelvis is stable. There is no long bony tenderness. The muscular compartments are soft. There is no redness, pus, streaking or erythema.). Absent: calf tenderness - Back Exam Back exam: Present: normal inspection. Absent: tenderness, CVA tenderness (R), CVA tenderness (L), paraspinal tenderness, vertebral tenderness - Neurological Exam Neurological exam: Present: alert, normal gait, other (there is no facial droop. The tongue is midline. Extraocular movements are intact bilaterally. Speaking in full sentences. Hearing is grossly intact. 5 out of 5 strength bilateral upper and lower extremities. Sensation is intact to light touch bilateral upper and lower extremities.). Absent: motor sensory deficit - Psychiatric Psychiatric exam: Present: anxious - Skin Skin exam: Present: warm, dry, intact, normal color. Absent: rash ED Course Vital Signs 02/22/19 02/23/19 02/23/19 19:17 00:30 01:44 Temperature 98.4 F Pulse Rate 115 H 93 H Respiratory 18 18 18 Rate Blood Pressure 154/93 Blood Pressure 164/93 [Right] O2 Sat by Pulse 98 99 Oximetry 02/23/19 02/23/19 02/23/19 01:45 02:44 02:45 Temperature Pulse Rate Respiratory 18 18 18 Rate Blood Pressure Blood Pressure [Right] O2 Sat by Pulse Oximetry 02/23/19 02/23/19 02/23/19 03:29 03:59 05:00 Temperature 98.2 F Pulse Rate 89 Respiratory 18 18 18 Rate Blood Pressure Blood Pressure 118/81 [Right] O2 Sat by Pulse 99 Oximetry - Reevaluation(s) Reevaluation #1: 02/23/19 01:48 Differential diagnosis, including but not limited to: Crystal arthritis, septic arthritis, bursitis Assessment and plan: 63-year-old female with nontraumatic left sided elbow effusion, some warmth, without redness, pus or streaking, unlikely to be septic arthritis she has partial range of motion of the joints, however, it appears to lock before complete extension. She has given informed written and verbal consent for left-sided joint arthrocentesis. Standard informed consent was obtained, discussed risks, benefits and alternatives. 3 mL of straw-colored fluid were aspirated from the left elbow without significant difficulty, we are awaiting laboratory results at this time. Reevaluation #2: 02/23/19 04:23 Feeling much improved. Range of motion improved. Synovial fluid analysis is reviewed and appreciated. Gram stain is pending at this time. Range of motion is improved. States her pain is improved. Multiple phone calls made to the laboratory multiple times, apparently, lab is experiencing technical issues and they are working as expediently as possible to result remainder of arthrocentesis studies. Reevaluation #3: 02/23/19 05:05 Arthrocentesis not suggestive of septic joint. Gram stain is negative. Please note that this is a Gram stain of the left elbow synovial fluid, will not left knee. As per laboratory personnel, synovial fluid analysis for both glucose, and protein are send out laboratory studies. Patient resting comfortably and feels improved. This is very unlikely to be a septic joint. We will discharge with pain medication, range of motion as tolerated, she will need to follow up closely as an outpatient. - Joint Aspiration/Injection Consent Obtained: verbal consent, written consent, emergent situation Time Out Performed: Yes Indications: R/O septic arthritis (rule out spetic join, crystal arthropahy and to relieve pressure/pain) Side of Body: left Joint Aspirated: elbow Ultrasound Guidance: Yes Skin Prep: Chlorhexidene (sterile prep and drape) Local Anesthesia Used: with Epi Amount of Anesthesia Used (mls): 5 Needle Size Used: 20G Syringe Size Used: 5cc Fluid Obtained: turbid (straw yellow) Total Fluid Obtained (mls): 3 Patient Tolerated Procedure: well Complications: none ED Medical Decision Making - Lab Data Result diagrams: 02/22/19 23:40 02/22/19 23:40 Vital Signs 02/22/19 02/23/19 02/23/19 19:17 00:30 01:44 Temperature 98.4 F Pulse Rate 115 H 93 H Respiratory 18 18 18 Rate Blood Pressure 154/93 Blood Pressure 164/93 [Right] O2 Sat by Pulse 98 99 Oximetry 02/23/19 01:45 Temperature Pulse Rate Respiratory 18 Rate Blood Pressure Blood Pressure [Right] O2 Sat by Pulse Oximetry Lab Results 02/22/19 02/22/19 02/22/19 Range/Units 23:40 23:40 23:40 WBC 8.2 (4.5-11.0) K/mm3 RBC 4.23 (3.65-5.03) M/mm3 Hgb 11.3 (10.1-14.3) gm/dl Hct 35.1 (30.3-42.9) % MCV 83 (79-97) fl MCH 27 L (28-32) pg MCHC 32 (30-34) % RDW 16.6 H (13.2-15.2) % Plt Count 392 (140-440) K/mm3 Lymph % (Auto) 16.5 (13.4-35.0) % [place] % (Auto) 5.6 (0.0-7.3) % Eos % (Auto) 0.5 (0.0-4.3) % Baso % (Auto) 0.9 (0.0-1.8) % Lymph # 1.4 (1.2-5.4) K/mm3 [place] # 0.5 (0.0-0.8) K/mm3 Eos # 0.0 (0.0-0.4) K/mm3 Baso # 0.1 (0.0-0.1) K/mm3 Seg Neutrophils % 76.5 H (40.0-70.0) % Seg Neutrophils # 6.3 (1.8-7.7) K/mm3 ESR 61 (0-20) mm/Hr PT 13.8 (12.2-14.9) Sec. INR 1.05 (0.87-1.13) APTT 61.0 H* (24.2-36.6) Sec. Sodium 138 (137-145) mmol/L Potassium 4.5 (3.6-5.0) mmol/L Chloride 100.0 (98-107) mmol/L Carbon Dioxide 23 (22-30) mmol/L Anion Gap 20 mmol/L BUN 26 H (7-17) mg/dL Creatinine 1.3 H (0.7-1.2) mg/dL Estimated GFR 50 ml/min BUN/Creatinine Ratio 20 % Glucose 199 H (65-100) mg/dL Calcium 9.7 (8.4-10.2) mg/dL Total Bilirubin 0.30 (0.1-1.2) mg/dL AST 18 (5-40) units/L ALT 8 (7-56) units/L Alkaline Phosphatase 114 (35-129) units/L Total Creatine Kinase 60 (30-135) units/L Total Protein 9.0 H (6.3-8.2) g/dL Albumin 4.6 (3.9-5) g/dL Albumin/Globulin Ratio 1.0 % Lab Results 02/22/19 02/22/19 02/22/19 Range/Units 00:25 23:40 23:40 WBC 8.2 (4.5-11.0) K/mm3 RBC 4.23 (3.65-5.03) M/mm3 Hgb 11.3 (10.1-14.3) gm/dl Hct 35.1 (30.3-42.9) % MCV 83 (79-97) fl MCH 27 L (28-32) pg MCHC 32 (30-34) % RDW 16.6 H (13.2-15.2) % Plt Count 392 (140-440) K/mm3 Lymph % (Auto) 16.5 (13.4-35.0) % [place] % (Auto) 5.6 (0.0-7.3) % Eos % (Auto) 0.5 (0.0-4.3) % Baso % (Auto) 0.9 (0.0-1.8) % Lymph # 1.4 (1.2-5.4) K/mm3 [place] # 0.5 (0.0-0.8) K/mm3 Eos # 0.0 (0.0-0.4) K/mm3 Baso # 0.1 (0.0-0.1) K/mm3 Seg Neutrophils % 76.5 H (40.0-70.0) % Seg Neutrophils # 6.3 (1.8-7.7) K/mm3 ESR 61 (0-20) mm/Hr PT 13.8 (12.2-14.9) Sec. INR 1.05 (0.87-1.13) APTT 61.0 H* (24.2-36.6) Sec. Sodium (137-145) mmol/L Potassium (3.6-5.0) mmol/L Chloride (98-107) mmol/L Carbon Dioxide (22-30) mmol/L Anion Gap mmol/L BUN (7-17) mg/dL Creatinine (0.7-1.2) mg/dL Estimated GFR ml/min BUN/Creatinine Ratio % Glucose (65-100) mg/dL Calcium (8.4-10.2) mg/dL Total Bilirubin (0.1-1.2) mg/dL AST (5-40) units/L ALT (7-56) units/L Alkaline Phosphatase (35-129) units/L Total Creatine Kinase (30-135) units/L Total Protein (6.3-8.2) g/dL Albumin (3.9-5) g/dL Albumin/Globulin Ratio % Fluid Type Synovial Fluid Color Straw Fluid Appearance Turbid Fluid WBC 43743 /mm3 Fluid RBC 50 /mm3 Fluid Seg Neutrophils 94.0 % Fluid Lymphocytes 6.0 % Fluid Reactive Lymphs 0 % Fluid Monocytes 0 % Fluid Eosinophils 0 % Fluid Basophils 0 % Synovial Crystals Negative (NONE SEEN) 02/22/19 Range/Units 23:40 WBC (4.5-11.0) K/mm3 RBC (3.65-5.03) M/mm3 Hgb (10.1-14.3) gm/dl Hct (30.3-42.9) % MCV (79-97) fl MCH (28-32) pg MCHC (30-34) % RDW (13.2-15.2) % Plt Count (140-440) K/mm3 Lymph % (Auto) (13.4-35.0) % [place] % (Auto) (0.0-7.3) % Eos % (Auto) (0.0-4.3) % Baso % (Auto) (0.0-1.8) % Lymph # (1.2-5.4) K/mm3 [place] # (0.0-0.8) K/mm3 Eos # (0.0-0.4) K/mm3 Baso # (0.0-0.1) K/mm3 Seg Neutrophils % (40.0-70.0) % Seg Neutrophils # (1.8-7.7) K/mm3 ESR (0-20) mm/Hr PT (12.2-14.9) Sec. INR (0.87-1.13) APTT (24.2-36.6) Sec. Sodium 138 (137-145) mmol/L Potassium 4.5 (3.6-5.0) mmol/L Chloride 100.0 (98-107) mmol/L Carbon Dioxide 23 (22-30) mmol/L Anion Gap 20 mmol/L BUN 26 H (7-17) mg/dL Creatinine 1.3 H (0.7-1.2) mg/dL Estimated GFR 50 ml/min BUN/Creatinine Ratio 20 % Glucose 199 H (65-100) mg/dL Calcium 9.7 (8.4-10.2) mg/dL Total Bilirubin 0.30 (0.1-1.2) mg/dL AST 18 (5-40) units/L ALT 8 (7-56) units/L Alkaline Phosphatase 114 (35-129) units/L Total Creatine Kinase 60 (30-135) units/L Total Protein 9.0 H (6.3-8.2) g/dL Albumin 4.6 (3.9-5) g/dL Albumin/Globulin Ratio 1.0 % Fluid Type Fluid Color Fluid Appearance Fluid WBC /mm3 Fluid RBC /mm3 Fluid Seg Neutrophils % Fluid Lymphocytes % Fluid Reactive Lymphs % Fluid Monocytes % Fluid Eosinophils % Fluid Basophils % Synovial Crystals (NONE SEEN) - Radiology Data Radiology results: report reviewed, image reviewed Print Report Referring Physician: SU KEYS Patient Name: FELIPA ORONA Date of : 1955 Sex: Female Report Date: 2019-02-22 Report Status: Finalized Findings [facility] [address] [place] [address] XRay Report Signed Patient: FELIPA ORONA MR#: [id number] : 1955 Acct:[id number] Age/Sex: 63 / F ADM Date: 02/22/19 Loc: ED Attending Dr: Ordering Physician: GWEN MUNSON Date of Service: 02/22/19 Procedure(s): XR elbow 3+V LT Accession Number(s): [id number] cc: GWEN MUNSON Fluoro Time In Minutes: LEFT ELBOW, 3 VIEWS 02/22/2019 INDICATION / CLINICAL INFORMATION: swelling and pain. COMPARISON: None available. FINDINGS: There is a evidence for a joint effusion. No evidence of fracture. There are mild degenerative changes in the medial compartment and lateral capitellar spurring. Signer Name: John Paul Dasilva MD Signed: 02/22/2019 7:59 PM Workstation Name: [id number] Transcribed By: GA Dictated By: John Paul Dasilva MD Electronically Authenticated By: John Paul Dasilva MD Signed Date/Time: 02/22/191958 Critical care attestation.: If time is entered above; I have spent that time in minutes in the direct care of this critically ill patient, excluding procedure time. ED Disposition Clinical Impression: Effusion, left elbow Disposition: DC-01 TO HOME OR SELFCARE Is pt being admited?: No Does the pt Need Aspirin: No Condition: Stable Additional Instructions: Rest, avoid heavy lifting, and avoid strenuous physical activities. Take the pain medications as needed and directed. Cultures were sent today, in addition to other laboratory studies, and these results will not be immediately available, but may take 3-5 days to resolve. Therefore, the patient should follow up closely with her outpatient primary care doctor, electrical instrument repairer or orthopedist, within the next 3-5 days for repeat checkup and evaluation, and please have a primary physician where private electrical instrument repairer or private orthopedist contact the medical records department to obtain laboratory studies which did not result today. This includes culture results, synovial fluid protein, synovial fluid glucose. Patient may participate in physical activities as tolerated, patient may alternate ice packs and heat packs as needed for pain. Please return to the emergency room right away with new, worsening or different symptoms not present on initial emergency room evaluation. Prescriptions: Ibuprofen [Motrin] 600 mg PO Q8H PRN #30 tablet PRN Reason: Pain oxyCODONE /ACETAMINOPHEN [Percocet 5/325] 1 tab PO Q6HR PRN #10 tablet PRN Reason: Pain Referrals: EDGARD VILLAFANA MD [Staff Physician] - 3-5 Days [facility] [Provider Group] - 3-5 Days
[2019-02-22] MEDS ORDERED: BENZOCAINE 20% TOP SPRAY 0.5 ML UNIT DOSE MM NR (23:45)
[2019-02-22] MEDS ORDERED: LIDOCAINE 2%/EPINEPHRINE 1:200,000 VIAL (20 ML) INFILTRATI ONE (23:45)
[2019-02-23 00:07] LABS: Basophils # (Auto) 0.1 K/mm3 (0.0-0.1); Basophils % (Auto) 0.9 % (0.0-1.8); Eosinophils % (Auto) 0.5 % (0.0-4.3); Hematocrit 35.1 % (30.3-42.9); Hemoglobin 11.3 gm/dl (10.1-14.3); Lymphocytes # (Auto) 1.4 K/mm3 (1.2-5.4); Lymphocytes % (Auto) 16.5 % (13.4-35.0); Mean Corpuscular HGB Conc 32 % (30-34); Mean Corpuscular Volume 83 fl (79-97); Monocytes # (Auto) 0.5 K/mm3 (0.0-0.8); Monocytes % (Auto) 5.6 % (0.0-7.3); Platelet Count 392 K/mm3 (140-440); Red Blood Count 4.23 M/mm3 (3.65-5.03); Red Cell Distribution Width 16.6 % (13.2-15.2)
[2019-02-23 00:15] LABS: INR 1.05 (0.87-1.13)
[2019-02-23 00:20] LABS: Albumin 4.6 g/dL (3.9-5); Calcium 9.7 mg/dL (8.4-10.2)
[2019-02-23 01:09] LABS: Erythrocyte Sedimentation Rate 61 mm/Hr (0-20)
[2019-02-23] MEDS ORDERED: IBUPROFEN 400 MG TAB PO ONE (01:37)
[2019-02-23] MEDS ORDERED: ACETAMINOPHEN 325 MG TAB PO ONE (01:37)
[2019-02-23] MEDS ORDERED: MORPHINE 4 MG/1 ML INJ IM STA (03:20)
[2019-02-23 03:53] LABS: Total Cells Counted 100 /mm3
[2019-02-23 03:55] LABS: Monocytes Body Fluid 0 %
[2019-02-23 05:25] VITALS: BP 118/81
[2019-02-23 08:17] LABS: C-Reactive Protein 5.1 mg/dL (0.00-1.30)
[2019-03-05 14:38] LABS: Total Protein,Body Fluid 5.8 (15.0-45.0)
== END 2019-02-23 05:20 | disposition home or self-care (01) ==
LOC: ED 17:01
DX: M25.422 Effusion, left elbow (principal)
CPT/HCPCS: 20605; 36415; 73080; 80053; 82550; 82947; 84160; 85025; 85048; 85610; 85652; 85730; 86140; 87205; 89051; 96372; 99284; J2270

== ENCOUNTER 2019-06-11 12:04 | Inpatient (IN) | payer MEDICAID, MEDICARE ==
[2019-06-11] MEDS ORDERED: SODIUM CHLORIDE 0.9% 500 ML 500 ML IV ONE ×2 (12:34→14:19)
[2019-06-11] MEDS ORDERED: METOCLOPRAMIDE 10 MG/2 ML INJ IV ONE (12:34)
[2019-06-11] MEDS ORDERED: SUCRALFATE 1 GM/10 ML ORAL LIQD PO ONE (12:34)
--- NOTE | 2019-06-11 12:49 | XRay Report ---
CHEST 1 VIEW INDICATION / CLINICAL INFORMATION: weakness cough. COMPARISON: 03/08/2018 FINDINGS: SUPPORT DEVICES: None. HEART / MEDIASTINUM: No significant abnormality. LUNGS / PLEURA: No significant pulmonary or pleural abnormality. No pneumothorax. ADDITIONAL FINDINGS: No significant additional findings. IMPRESSION: 1. No acute findings. Signer Name: Gracie Barnett MD Signed: 06/11/2019 12:44 PM Workstation Name: [id number]
--- NOTE | 2019-06-11 12:53 | Emergency Department Report ---
ED General Adult HPI - General Chief complaint: Weakness Stated complaint: WEAKNESS/LETHERGIC Time Seen by Provider: 06/11/19 12:19 Source: patient, EMS (Verbal report received from emergency medical services. EMS documentation not available at time of chart dictation ), RN notes reviewed, old records reviewed Mode of arrival: Stretcher Limitations: No Limitations - History of Present Illness Initial comments: Patient is a 63-year-old female whom I have evaluated in the past. She has a history of hypertension and diabetes. She presents to the ER with EMS with a complaint of generalized malaise and weakness, resolved nausea and vomiting. Symptoms present for 3 to 4 days. They have basically resolved at this point in time. No recent fever, denies cough, denies exposure to coronavirus, denies abdominal pain, focal extremity weakness and or numbness, no complaint of diarrhea, denies recent travel, and denies irritative/obstructive urinary symptoms. She does not know what medications he takes off the top of her head, but she is able to recall her pharmacy. No confirmed exposure to coronavirus that she is aware of. -: days(s) Severity scale (0 -10): 0 Consistency: now resolved Improves with: none Worsens with: eating - Related Data Home Medications Medication Instructions Recorded Confirmed Last Taken Insulin Aspart Prot/Aspart(Nf) 30 units SQ AMHY 11/22/12 12/24/17 12/23/17 [Novolog Mix 70/30] Metformin HCl [Glumetza] 1,000 mg PO QDAY 11/22/12 12/23/17 11/21/12 100 mg Pregabalin [Lyrica] 50 mg PO DAILY 11/22/12 12/23/17 11/22/12 08:18 20 mg amLODIPine [Norvasc] 10 mg PO DAILY 11/22/12 12/23/17 Unknown lisinopriL [Zestril] 40 mg PO QDAY 11/22/12 12/24/17 12/23/17 40 mg Previous Rx's Medication Instructions Recorded Last Taken Type Ibuprofen [Motrin] 600 mg PO Q8H PRN #30 tablet 11/22/12 Unknown Rx Nitrofurantoin Macrocrystal 100 mg PO BID #14 capsule 12/16/17 Unknown Rx [Macrodantin] Phenazopyridine [Pyridium] 100 mg PO TID #9 tab 12/16/17 Unknown Rx HYDROcodone/APAP 5-325 [[place] 1 each PO Q6HR PRN #14 tablet 03/08/18 Unknown Rx 5/325] Ibuprofen [Motrin] 800 mg PO Q8HR PRN #30 tablet 03/08/18 Unknown Rx Ondansetron [Zofran Odt] 4 mg PO Q8HR PRN #20 tab.rapdis 03/08/18 Unknown Rx Cyclobenzaprine [Flexeril] 10 mg PO TID PRN #12 tablet 02/05/19 Unknown Rx Ibuprofen [Motrin] 600 mg PO Q8H PRN #30 tablet 02/23/19 Unknown Rx oxyCODONE /ACETAMINOPHEN [Percocet 1 tab PO Q6HR PRN #10 tablet 02/23/19 Unknown Rx 5/325] Allergies Allergy/AdvReac Type Severity Reaction Status Date / Time No Known Allergies Allergy Verified 02/22/19 17:08 ED Review of Systems ROS: Stated complaint: WEAKNESS/LETHERGIC Other details as noted in HPI Constitutional: malaise, weakness. denies: fever Eyes: denies: eye discharge ENT: denies: congestion Respiratory: denies: wheezing Cardiovascular: denies: syncope Gastrointestinal: nausea, vomiting Genitourinary: denies: dysuria Musculoskeletal: as per HPI Skin: as per HPI Neurological: as per HPI Psychiatric: as per HPI Hematological/Lymphatic: as per HPI ED Past Medical Hx - Past Medical History Previous Medical History?: Yes Hx Hypertension: Yes Hx Diabetes: Yes Additional medical history: Shingles, Sarcadosis, neuropathy - Surgical History Past Surgical History?: No Additional Surgical History: Back Surgery, c section - Social History Smoking Status: Never Smoker Substance Use Type: None - Medications Home Medications: Home Medications Medication Instructions Recorded Confirmed Last Taken Type Ibuprofen [Motrin] 600 mg PO Q8H PRN #30 tablet 11/22/12 12/23/17 Unknown Rx Insulin Aspart Prot/Aspart(Nf) 30 units SQ AMHY 11/22/12 12/24/17 12/23/17 History [Novolog Mix 70/30] Metformin HCl [Glumetza] 1,000 mg PO QDAY 11/22/12 12/23/17 11/21/12 History 100 mg Pregabalin [Lyrica] 50 mg PO DAILY 11/22/12 12/23/17 11/22/12 08:18 History 20 mg amLODIPine [Norvasc] 10 mg PO DAILY 11/22/12 12/23/17 Unknown History lisinopriL [Zestril] 40 mg PO QDAY 11/22/12 12/24/17 12/23/17 History 40 mg Nitrofurantoin Macrocrystal 100 mg PO BID #14 capsule 12/16/17 12/23/17 Unknown Rx [Macrodantin] Phenazopyridine [Pyridium] 100 mg PO TID #9 tab 12/16/17 12/23/17 Unknown Rx HYDROcodone/APAP 5-325 [[place] 1 each PO Q6HR PRN #14 tablet 03/08/18 Unknown Rx 5/325] Ibuprofen [Motrin] 800 mg PO Q8HR PRN #30 tablet 03/08/18 Unknown Rx Ondansetron [Zofran Odt] 4 mg PO Q8HR PRN #20 tab.rapdis 03/08/18 Unknown Rx Cyclobenzaprine [Flexeril] 10 mg PO TID PRN #12 tablet 02/05/19 Unknown Rx Ibuprofen [Motrin] 600 mg PO Q8H PRN #30 tablet 02/23/19 Unknown Rx oxyCODONE /ACETAMINOPHEN [Percocet 1 tab PO Q6HR PRN #10 tablet 02/23/19 Unknown Rx 5/325] ED Physical Exam - General Limitations: No Limitations General appearance: alert, in no apparent distress - Head Head exam: Present: atraumatic, normocephalic - Eye Eye exam: Present: normal appearance, EOMI. Absent: nystagmus - ENT ENT exam: Present: normal exam, mucous membranes moist, normal external ear exam, other (Patient is edentulous) - Neck Neck exam: Present: normal inspection, full ROM. Absent: tenderness, meningismus - Respiratory Respiratory exam: Present: normal lung sounds bilaterally. Absent: respiratory distress - Cardiovascular Cardiovascular Exam: Present: regular rate, normal rhythm, normal heart sounds. Absent: bradycardia, tachycardia, irregular rhythm, systolic murmur, diastolic murmur, rubs, gallop - GI/Abdominal GI/Abdominal exam: Present: soft. Absent: distended, tenderness, guarding, rebound, rigid, pulsatile mass - Extremities Exam Extremities exam: Present: normal inspection, full ROM, other (2+ pulses noted in the bilateral upper and lower extremities. There is no palpable cord. negative Homans sign. Muscular compartments are soft. The pelvis is stable.). Absent: pedal edema, calf tenderness - Back Exam Back exam: Present: normal inspection, full ROM. Absent: tenderness, CVA tenderness (R), CVA tenderness (L), paraspinal tenderness, vertebral tenderness - Neurological Exam Neurological exam: Present: alert, other (There is no facial droop. The tongue is midline. Extraocular movements are intact bilaterally. There is 5 out of 5 strength in bilateral upper and lower extremities. Sensation is intact to light touch bilateral upper and lower extremities. There is a normal gait.). Absent: motor sensory deficit - Psychiatric Psychiatric exam: Present: normal affect, normal mood - Skin Skin exam: Present: warm, dry, intact, normal color. Absent: rash ED Course Vital Signs 06/11/19 06/11/19 06/11/19 12:29 13:22 13:30 Temperature 97.7 F Pulse Rate 91 H 82 79 Respiratory 14 12 15 Rate Blood Pressure Blood Pressure 175/101 [Right] O2 Sat by Pulse 100 100 100 Oximetry 06/11/19 06/11/19 06/11/19 13:46 14:00 14:16 Temperature Pulse Rate 78 80 75 Respiratory 11 L 10 L 12 Rate Blood Pressure Blood Pressure [Right] O2 Sat by Pulse 100 100 100 Oximetry 06/11/19 06/11/19 06/11/19 14:30 14:46 15:00 Temperature Pulse Rate 89 82 78 Respiratory 15 12 9 L Rate Blood Pressure Blood Pressure [Right] O2 Sat by Pulse 100 100 100 Oximetry 06/11/19 06/11/19 06/11/19 15:16 15:30 15:46 Temperature Pulse Rate 80 74 72 Respiratory 19 12 9 L Rate Blood Pressure Blood Pressure [Right] O2 Sat by Pulse 100 100 100 Oximetry 06/11/19 06/11/19 06/11/19 16:00 16:15 16:30 Temperature Pulse Rate 78 80 74 Respiratory 15 13 11 L Rate Blood Pressure 154/89 148/81 Blood Pressure [Right] O2 Sat by Pulse 100 100 100 Oximetry 06/11/19 16:45 Temperature Pulse Rate 80 Respiratory 10 L Rate Blood Pressure 151/82 Blood Pressure [Right] O2 Sat by Pulse Oximetry - Reevaluation(s) Reevaluation #1: 06/11/19 12:51 Differential diagnosis, including but not limited to: Viral syndrome, enteritis, pneumonia, urinary tract infection, obstruction, constipation, gastroparesis Assessment and plan: 63-year-old female, who is afebrile, with reassuring vital signs with the exception of chronically elevated blood pressure, please reference the [employer] clinical policy on hypertension which is not acutely symptomatic or decompensated, presenting with resolved nausea and vomiting and malaise. Her physical exam is benign and unremarkable. She is asking to drink at this time. Doubt emergent condition at this time. Check basic laboratory studies, EKG, urinalysis, x-ray of the chest, treat her symptoms, obtain noncontrast CT scan of the abdomen pelvis, and then reassess. Reevaluation #2: 06/11/19 14:23 Laboratory studies show acute renal insufficiency, CT scan abdomen pelvis shows lower lobe pneumonia. Do not clinically suspect coronavirus, suspect community- acquired pneumonia, with probable prerenal insufficiency. Patient will be admitted to the medical service, under the care of Dr. Deb Kee Reevaluation #3: 06/11/19 14:38 Dr Deb Kee to admit He accepts the patient to the medical service. He requests rapid influenza test. Clinically do not suspect the flu, but we will order it as a courtesy, and defer to the inpatient team to follow-up ED Medical Decision Making - Lab Data Result diagrams: 06/11/19 12:57 06/11/19 12:57 Vital Signs 06/11/19 12:29 Temperature 97.7 F Pulse Rate 91 H Respiratory 14 Rate Blood Pressure 175/101 [Right] O2 Sat by Pulse 100 Oximetry - EKG Data -: EKG Interpreted by Me EKG shows normal: sinus rhythm Rate: normal - EKG Data 06/11/19 12:52 Sinus rhythm, 90 bpm, normal axis, QTC 448 ms, nonspecific ST concave up mor phology noted in diffuse leads, there is no endorsement of chest pain, the EKG is not a stemi - Radiology Data Radiology results: report reviewed, image reviewed interpreted by me: Single 1 view x-ray of the chest is negative for acute findings. Print Report Referring Physician: CODY CURTIS Patient Name: FELIPA ORONA Date of : 1955 Sex: Female Report Date: 2019-06-11 Report Status: Finalized Findings [facility], [place] [address] [place] [address] Cat Scan Report Signed Patient: FELIPA ORONA MR#: [id number] : 1955 Acct:[id number] Age/Sex: 63 / F ADM Date: 06/11/19 Loc: ED Attending Dr: Ordering Physician: CODY CURTIS MD Date of Service: 06/11/19 Procedure(s): CT abdomen pelvis wo con Accession Number(s): [id number] cc: CODY CURTIS MD CT ABDOMEN AND PELVIS WITHOUT CONTRAST INDICATION / CLINICAL INFORMATION: MAIN: n/v weakness. Abdominal pain TECHNIQUE: Axial CT images were obtained through the abdomen and pelvis without IV contrast. All CT scans at this location are performed using CT dose reduction for ALARA by means of automated exposure control. COMPARISON: None available. FINDINGS: LOWER CHEST: Focal inflammation involving the inferior aspect of the right middle lobe.. LIVER: No significant abnormality. GALLBLADDER: No significant abnormality. BILE DUCTS: No significant abnormality. PANCREAS: No significant abnormality. SPLEEN: No significant abnormality. ADRENALS: No significant abnormality. RIGHT KIDNEY and URETER: No significant abnormality. LEFT KIDNEY and URETER: 11 mm calculus within the lower pole the left kidney.. STOMACH and SMALL BOWEL: No significant abnormality. COLON: No significant abnormality. APPENDIX partially visualized proximally. The distal appendix is poorly identified and cannot be assessed.. PERITONEUM: No free fluid. No free air. No fluid collection. LYMPH NODES: No significant adenopathy. AORTA and ARTERIES: No significant abnormality. IVC and VEINS: No significant abnormality. URINARY BLADDER: No significant abnormality. REPRODUCTIVE ORGANS: No significant abnormality. ADDITIONAL FINDINGS: None. SKELETAL SYSTEM: No significant abnormality. IMPRESSION: Nonobstructive left- sided nephrolithiasis. Nonobstructive bowel gas pattern. Focal bronchopneumonia within the inferior aspect of the right middle lobe Signer Name: Connor Lorenzo MD Signed: 06/11/2019 2:03 PM Workstation Name: [id number] Transcribed By: BC Dictated By: Connor Lorenzo MD Electronically Authenticated By: Connor Lorenzo MD Signed Date/Time: 06/11/19 1403 DD/ 1357 SUPPORT DEVICES: None. HEART / MEDIASTINUM: No significant abnormality. LUNGS / PLEURA: No significant pulmonary or pleural abnormality. No pneumothorax. YUVAL TIONAL FINDINGS: No significant additional findings. IMPRESSION: 1. No acute findings. Signer Name: Gracie Barnett MD Signed: 06/11/2019 12:44 PM Workstation Name: [id number] Transcribed By: Dictated By: Gracie Barnett MD Electronically Authenticated By: Gracie Barnett MD Signed Date/Time: 06/11/19 1244 Critical care attestation.: If time is entered above; I have spent that time in minutes in the direct care of this critically ill patient, excluding procedure time. ED Disposition Clinical Impression: CINDY (acute kidney injury), Pneumonia, Dehydration Disposition: [id number] OP ADMIT IP TO THIS HOSP Is pt being admited?: Yes Does the pt Need Aspirin: No Condition: Good
[2019-06-11 13:15] LABS: Hematocrit 31.6 % (30.3-42.9); Hemoglobin 10.1 gm/dl (10.1-14.3); Mean Corpuscular HGB Conc 32 % (30-34); Mean Corpuscular Volume 83 fl (79-97); Platelet Count 328 K/mm3 (140-440); Red Blood Count 3.81 M/mm3 (3.65-5.03); Red Cell Distribution Width 18.1 % (13.2-15.2)
[2019-06-11 13:34] LABS: Albumin 3.7 g/dL (3.9-5)
--- NOTE | 2019-06-11 14:08 | Cat Scan Report ---
CT ABDOMEN AND PELVIS WITHOUT CONTRAST INDICATION / CLINICAL INFORMATION: MAIN: n/v weakness. Abdominal pain TECHNIQUE: Axial CT images were obtained through the abdomen and pelvis without IV contrast. All CT scans at [facility] location are performed using CT dose reduction for ALARA by means of automated exposure control. COMPARISON: None available. FINDINGS: LOWER CHEST: Focal inflammation involving the inferior aspect of the right middle lobe.. LIVER: No significant abnormality. GALLBLADDER: No significant abnormality. BILE DUCTS: No significant abnormality. PANCREAS: No significant abnormality. SPLEEN: No significant abnormality. ADRENALS: No significant abnormality. RIGHT KIDNEY and URETER: No significant abnormality. LEFT KIDNEY and URETER: 11 mm calculus within the lower pole the left kidney.. STOMACH and SMALL BOWEL: No significant abnormality. COLON: No significant abnormality. APPENDIX partially visualized proximally. The distal appendix is poorly identified and cannot be asse ssed.. PERITONEUM: No free fluid. No free air. No fluid collection. LYMPH NODES: No significant adenopathy. AORTA and ARTERIES: No significant abnormality. IVC and VEINS: No significant abnormality. URINARY BLADDER: No significant abnormality. REPRODUCTIVE ORGANS: No significant abnormality. ADDITIONAL FINDINGS: None. SKELETAL SYSTEM: No significant abnormality. IMPRESSION: Nonobstructive left-sided nephrolithiasis. Nonobstructive bowel gas pattern. Focal bronchopneumonia w ithin the inferior aspect of the right middle lobe Signer Name: Connor Lorenzo MD Signed: 06/11/2019 2:03 PM Workstation Name: [id number]
[2019-06-11] MEDS ORDERED: AMOXICILLIN 500 MG CAP PO ONE (14:19)
[2019-06-11] MEDS ORDERED: AZITHROMYCIN 250 MG TAB PO ONE (14:19)
[2019-06-11 15:35] LABS: C-Reactive Protein 0.5 mg/dL (0.00-1.30); Uric Acid 13.2 mg/dL (3.5-7.6)
[2019-06-11 17:23] LABS: Bacteria,Urine 1+ /HPF (Negative); Bilirubin,Urine NEG (Negative); Blood,Urine SM (Negative); Color,Urine Yellow (Yellow); Hyaline Casts,Urine 4 /LPF; Mucus,Urine FEW /HPF; Protein,Urine <15 mg/dL mg/dL (Negative); Urobilinogen,Urine < 2.0 mg/dL (<2.0)
[2019-06-11 17:30] LABS: Creatinine,Urine 80.2 mg/dL (0.1-20.0)
[2019-06-11] MEDS ORDERED: ONDANSETRON 4 MG ODT TAB PO PRN (21:09)
[2019-06-11] MEDS ORDERED: CYCLOBENZAPRINE 10 MG TAB PO PRN (21:09)
[2019-06-11] MEDS ORDERED: METFORMIN HCL 1000 MG PO SCH (21:15)
--- NOTE | 2019-06-11 21:22 | History and Physical Report ---
History of Present Illness Date of examination: 06/11/19 Date of admission: 06/11/19 14:23 Chief complaint: Generalized weakness for 3 to 4 days History of present illness: 63-year-old female with history of hypertension and insulin-dependent diabetes comes in for generalized malaise and weakness and nausea and vomiting. The symptoms have been going on for 3 to 4 days. Nausea and vomiting is better. No recent fever. Denies cough. Denies exposure to coronavirus. No diarrhea. No anosmia. No recent exposure to coronavirus patients. Patient feels weak. No chest pain. No shortness of breath. Work-up in the ER showed bronchopneumonia for which she is being admitted. Past Medical History Previous Medical History?: Yes Hypertension: Yes Diabetes: Yes Additional medical history: Shingles, Sarcoidosis, neuropathy Surgical History Past Surgical History?: No Additional Surgical History: Back Surgery, c section Social History Smoking Status: Never Smoker Substance Use Type: None Family history Htn - Medications Home Medications: Home Medications Medication Instructions Recorded Confirmed Last Taken Type Ibuprofen [Motrin] 600 mg PO Q8H PRN #30 tablet 11/22/12 12/23/17 Unknown Rx Insulin Aspart Prot/Aspart(Nf) 30 units SQ AMHY 11/22/12 12/24/17 12/23/17 History [Novolog Mix 70/30] Metformin HCl [Glumetza] 1,000 mg PO QDAY 11/22/12 12/23/17 11/21/12 History 100 mg Pregabalin [Lyrica] 50 mg PO DAILY 11/22/12 12/23/17 11/22/12 08:18 History 20 mg amLODIPine [Norvasc] 10 mg PO DAILY 11/22/12 12/23/17 Unknown History lisinopriL [Zestril] 40 mg PO QDAY 11/22/12 12/24/17 12/23/17 History 40 mg Nitrofurantoin Macrocrystal 100 mg PO BID #14 capsule 12/16/17 12/23/17 Unknown Rx [Macrodantin] Phenazopyridine [Pyridium] 100 mg PO TID #9 tab 12/16/17 12/23/17 Unknown Rx HYDROcodone/APAP 5-325 [[place] 1 each PO Q6HR PRN #14 tablet 03/08/18 Unknown Rx 5/325] Ibuprofen [Motrin] 800 mg PO Q8HR PRN #30 tablet 03/08/18 Unknown Rx Ondansetron [Zofran Odt] 4 mg PO Q8HR PRN #20 tab.rapdis 03/08/18 Unknown Rx Cyclobenzaprine [Flexeril] 10 mg PO TID PRN #12 tablet 02/05/19 Unknown Rx Ibuprofen [Motrin] 600 mg PO Q8H PRN #30 tablet 02/23/19 Unknown Rx oxyCODONE /ACETAMINOPHEN [Percocet 1 tab PO Q6HR PRN #10 tablet 02/23/19 Unknown Rx 5/325] Review of Systems My review of systems Stated complaint: WEAKNESS/LETHERGIC Other details as noted in HPI Constitutional: malaise, weakness. denies: fever Eyes: denies: eye discharge ENT: denies: congestion Respiratory: denies: wheezing Cardiovascular: denies: syncope Gastrointestinal: nausea, vomiting Genitourinary: denies: dysuria Musculoskeletal: as per HPI Skin: as per HPI Neurological: as per HPI Psychiatric: as per HPI Hematological/Lymphatic: as per HPI Medications and Allergies Allergies Allergy/AdvReac Type Severity Reaction Status Date / Time No Known Allergies Allergy Verified 02/22/19 17:08 Home Medications Medication Instructions Recorded Confirmed Last Taken Type Ibuprofen [Motrin] 600 mg PO Q8H PRN #30 tablet 11/22/12 12/23/17 Unknown Rx Insulin Aspart Prot/Aspart(Nf) 30 units SQ AMHY 11/22/12 12/24/17 12/23/17 History [Novolog Mix 70/30] Metformin HCl [Glumetza] 1,000 mg PO QDAY 11/22/12 12/23/17 11/21/12 History 100 mg Pregabalin [Lyrica] 50 mg PO DAILY 11/22/12 12/23/17 11/22/12 08:18 History 20 mg amLODIPine [Norvasc] 10 mg PO DAILY 11/22/12 12/23/17 Unknown History lisinopriL [Zestril] 40 mg PO QDAY 11/22/12 12/24/17 12/23/17 History 40 mg Nitrofurantoin Macrocrystal 100 mg PO BID #14 capsule 12/16/17 12/23/17 Unknown Rx [Macrodantin] Phenazopyridine [Pyridium] 100 mg PO TID #9 tab 12/16/17 12/23/17 Unknown Rx HYDROcodone/APAP 5-325 [[place] 1 each PO Q6HR PRN #14 tablet 03/08/18 Unknown Rx 5/325] Ibuprofen [Motrin] 800 mg PO Q8HR PRN #30 tablet 03/08/18 Unknown Rx Ondansetron [Zofran Odt] 4 mg PO Q8HR PRN #20 tab.rapdis 03/08/18 Unknown Rx Cyclobenzaprine [Flexeril] 10 mg PO TID PRN #12 tablet 02/05/19 Unknown Rx Ibuprofen [Motrin] 600 mg PO Q8H PRN #30 tablet 02/23/19 Unknown Rx oxyCODONE /ACETAMINOPHEN [Percocet 1 tab PO Q6HR PRN #10 tablet 02/23/19 Unknown Rx 5/325] Exam - Constitutional Vitals: Temp Pulse Resp BP Pulse Ox 97.7 F 80 10 L 151/82 100 06/11/19 12:29 06/11/19 16:45 06/11/19 16:45 06/11/19 16:45 06/11/19 16:30 General appearance: Present: no acute distress, well-nourished - EENT Eyes: Present: PERRL ENT: hearing intact, clear oral mucosa - Neck Neck: Present: supple, normal ROM - Respiratory Respiratory effort: normal Respiratory: bilateral: CTA - Cardiovascular Heart rate: 78 Heart Sounds: Present: S1 & S2. Absent: rub, click - Extremities Extremities: pulses symmetrical, No edema Peripheral Pulses: within normal limits - Abdominal General gastrointestinal: Present: soft, non-tender, non-distended, normal bowel sounds Female genitourinary: Present: normal - Integumentary Integumentary: Present: clear, warm, dry - Musculoskeletal Musculoskeletal: gait normal, strength equal bilaterally - Psychiatric Psychiatric: appropriate mood/affect, intact judgment & insight - Neurologic Neurologic: CNII-XII intact, moves all extremities JULIO score - Julio Score Age > 65: (0) No Aspirin use within the Past 7 Days: (0) No 3 or more CAD Risk Factors: (1) Yes 2 or more Angina events in past 24 hrs: (0) No Known CAD with more than 50% Stenosis: (0) No Elevated Cardiac Markers: (0) No ST Deviation Greater than 0.5mm: (0) No JULIO Score: 1 Results - Labs CBC & Chem 7: 06/11/19 12:57 06/11/19 12:57 Labs: Laboratory Last Values WBC 4.9 K/mm3 (4.5-11.0) 06/11/19 12:57 RBC 3.81 M/mm3 (3.65-5.03) 06/11/19 12:57 Hgb 10.1 gm/dl (10.1-14.3) 06/11/19 12:57 Hct 31.6 % (30.3-42.9) 06/11/19 12:57 MCV 83 fl (79-97) 06/11/19 12:57 MCH 27 pg (28-32) L 06/11/19 12:57 MCHC 32 % (30-34) 06/11/19 12:57 RDW 18.1 % (13.2-15.2) H 06/11/19 12:57 Plt Count 328 K/mm3 (140-440) 06/11/19 12:57 PT 13.3 Sec. (12.2-14.9) 06/11/19 12:57 INR 1.00 (0.87-1.13) 06/11/19 12:57 Sodium 143 mmol/L (137-145) 06/11/19 12:57 Potassium 4.9 mmol/L (3.6-5.0) 06/11/19 12:57 Chloride 102.2 mmol/L (98-107) 06/11/19 12:57 Carbon Dioxide 17 mmol/L (22-30) L 06/11/19 12:57 Anion Gap 29 mmol/L 06/11/19 12:57 BUN 99 mg/dL (7-17) H 06/11/19 12:57 Creatinine 2.6 mg/dL (0.7-1.2) H 06/11/19 12:57 Estimated GFR 22 ml/min 06/11/19 12:57 BUN/Creatinine Ratio 38 % 06/11/19 12:57 Glucose 75 mg/dL (65-100) 06/11/19 12:57 Lactic Acid 1.30 mmol/L (0.7-2.0) 06/11/19 14:45 Uric Acid 13.2 mg/dL (3.5-7.6) H 06/11/19 14:45 Calcium 9.0 mg/dL (8.4-10.2) 06/11/19 12:57 Magnesium 2.90 mg/dL (1.7-2.3) H 06/11/19 12:57 Ferritin 126.4 ng/mL (13.0-400.0) 06/11/19 14:45 Total Bilirubin 0.20 mg/dL (0.1-1.2) 06/11/19 12:57 AST 25 units/L (5-40) 06/11/19 12:57 ALT 10 units/L (7-56) 06/11/19 12:57 Alkaline Phosphatase 37 units/L (35-129) 06/11/19 12:57 Lactate Dehydrogenase 147 units/L (91-180) 06/11/19 14:45 Total Creatine Kinase 50 units/L (30-135) 06/11/19 12:57 C-Reactive Protein 0.50 mg/dL (0.00-1.30) 06/11/19 14:45 Total Protein 7.6 g/dL (6.3-8.2) 06/11/19 12:57 Albumin 3.7 g/dL (3.9-5) L 06/11/19 12:57 Albumin/Globulin Ratio 0.9 % 06/11/19 12:57 TSH 1.880 mlU/mL (0.270-4.200) 06/11/19 14:45 Urine Color Yellow (Yellow) 06/11/19 17:07 Urine Turbidity Clear (Clear) 06/11/19 17:07 Urine pH 5.0 (5.0-7.0) 06/11/19 17:07 Ur Specific [place] 1.012 (1.003-1.030) 06/11/19 17:07 Urine Protein <15 mg/dl mg/dL (Negative) 06/11/19 17:07 Urine Glucose (UA) Neg mg/dL (Negative) 06/11/19 17:07 Urine Ketones Tr mg/dL (Negative) 06/11/19 17:07 Urine Blood Sm (Negative) 06/11/19 17:07 Urine Nitrite Neg (Negative) 06/11/19 17:07 Urine Bilirubin Neg (Negative) 06/11/19 17:07 Urine Urobilinogen < 2.0 mg/dL (<2.0) 06/11/19 17:07 Ur Leukocyte Esterase Neg (Negative) 06/11/19 17:07 Urine WBC (Auto) 10.0 /HPF (0.0-6.0) H 06/11/19 17:07 Urine RBC (Auto) 4.0 /HPF (0.0-6.0) 06/11/19 17:07 U Epithel Cells (Auto) 1.0 /HPF (0-13.0) 06/11/19 17:07 Urine Bacteria (Auto) 1+ /HPF (Negative) 06/11/19 17:07 Hyaline Casts 4 /LPF 06/11/19 17:07 Urine Mucus Few /HPF 06/11/19 17:07 Urine Osmolality 406 Mosm/kg 06/11/19 17:07 Urine Creatinine 80.2 mg/dL (0.1-20.0) H 06/11/19 17:07 Urine Sodium 24 mmol/L 06/11/19 17:07 Influenza A (Rapid) Negative (Negative) 06/11/19 16:01 Influenza B (Rapid) Negative (Negative) 06/11/19 16:01 Microbiology: Microbiology 06/11/19 14:45 Peripheral/Venous Blood Culture - Preliminary Culture in Progress 06/11/19 14:45 Peripheral/Venous Blood Culture - Preliminary Culture in Progress - Imaging and Cardiology EKG: report reviewed Chest x-ray: report reviewed CT scan - abdomen: report reviewed Imaging and Cardiology: CT abdomen and pelvis IMPRESSION: Nonobstructive left-sided nephrolithiasis. Nonobstructive bowel gas pattern . Focal bronchopneumonia within the inferior aspect of the right middle lobe CXR No acute findings. Carcamo/IV: Voiding Method Toilet IV Catheter Type [Right INT / Saline Lock Antecubital] Assessment and Plan Advance Directives: Yes (Full code) VTE prophylaxis?: Chemical Plan of care discussed with patient/family: Yes - Patient Problems (1) Pneumonia Current Visit: Yes Status: Acute Plan to address problem: Bronchopneumonia in the right middle lobe IV Zithromax and IV Rocephin IV fluids No exposure to coronavirus Suspicion for coronavirus very low No coronavirus form filled out (2) CINDY (acute kidney injury) Current Visit: Yes Status: Acute Plan to address problem: IV fluids for now ATN Nephrology consult requested (3) Dehydration Current Visit: Yes Status: Acute Plan to address problem: IV fluids for now (4) Insulin dependent diabetes mellitus Current Visit: Yes Status: Acute Plan to address problem: Continue home insulin and coverage Check hemoglobin A1c (5) Hypertension Current Visit: Yes Status: Chronic Qualifiers: Hypertension type: essential hypertension Qualified Code(s): I10 - Essential (primary) hypertension Plan to address problem: Continue antihypertensives (6) UTI (urinary tract infection) Current Visit: Yes Status: Acute Qualifiers: Urinary tract infection type: acute cystitis Plan to address problem: 10 WBCs in the urine Patient on Rocephin for the pneumonia which should cover the urinary tract infection also (7) DVT prophylaxis Current Visit: Yes Status: Acute Plan to address problem: On heparin and GI prophylaxis
[2019-06-11] MEDS ORDERED: ASPART SQ SCH (22:00)
[2019-06-11] MEDS ORDERED: INSULIN ASPART PROT SQ SCH (22:00)
[2019-06-11] MEDS: HYDROcodone/ACETAMINOPHEN 5-325 MG TAB PO PRN (22:17)
[2019-06-11] MEDS: amLODIPine 10 MG TAB PO SCH (22:18)
[2019-06-11] MEDS: LISINOPRIL 40 MG TAB PO SCH (22:18)
[2019-06-11] MEDS: PREGABALIN 25 MG CAP PO SCH (22:19)
[2019-06-11] MEDS: INSULIN NPH/REGULAR 70/30 INJ SUB-Q SCH (22:22)
[2019-06-11] MEDS: HEPARIN 5,000 UNIT/1 ML VIAL SUB-Q SCH (23:42)
[2019-06-12 05:44] LABS: Basophils % (Auto) 0.6 % (0.0-1.8); Hematocrit 27.4 % (30.3-42.9); Hemoglobin 8.8 gm/dl (10.1-14.3); Lymphocytes # (Auto) 0.8 K/mm3 (1.2-5.4); Lymphocytes % (Auto) 19.8 % (13.4-35.0); Mean Corpuscular HGB Conc 32 % (30-34); Mean Corpuscular Volume 81 fl (79-97); Monocytes # (Auto) 0.3 K/mm3 (0.0-0.8); Monocytes % (Auto) 7.3 % (0.0-7.3); Platelet Count 312 K/mm3 (140-440); Red Blood Count 3.38 M/mm3 (3.65-5.03); Red Cell Distribution Width 18.2 % (13.2-15.2)
[2019-06-12 06:47] LABS: Albumin 3.4 g/dL (3.9-5); Calcium 8.6 mg/dL (8.4-10.2)
[2019-06-12] MEDS: LISINOPRIL 40 MG TAB PO SCH (10:15)
[2019-06-12] MEDS: amLODIPine 10 MG TAB PO SCH (10:15)
[2019-06-12] MEDS: PREGABALIN 25 MG CAP PO SCH (10:15)
[2019-06-12] MEDS: INSULIN LISPRO 100 UNIT/ML SUB-Q SCH ×4 (10:16→23:26)
[2019-06-12] MEDS: HEPARIN 5,000 UNIT/1 ML VIAL SUB-Q SCH ×2 (10:16→21:01)
[2019-06-12] MEDS: INSULIN NPH/REGULAR 70/30 INJ SUB-Q SCH ×2 (10:16→12:11)
--- NOTE | 2019-06-12 11:47 | Progress Note ---
Assessment and Plan Assessment and plan: Due to patient's risk factors like age 63 years, history of diabetes with focal bronchopneumonia in the right lower lung lobe Patient needs inpatient care with IV antibiotics minimum 3 days. --Broncho-pneumonia right middle lobe Current Visit: Yes Status: Acute Oxygen titrate O2 sats to more than 90% IV Zithromax and IV Rocephin, follow cultures No exposure to coronavirus Suspicion for coronavirus very low -CT chest; nonobstructive left-sided nephrolithiasis Focal bronchopneumonia within the inferior aspect of the right middle lobe -Chest x-ray; no acute findings -- CINDY (acute kidney injury) Current Visit: Yes Status: Acute ATN,IV fluids mild improvement Nephrology following --Dehydration Current Visit: Yes Status: Acute Continue IV fluids for now --Insulin dependent diabetes mellitus Current Visit: Yes Status: Acute Continue home insulin and coverage Check hemoglobin A1c -- Hypertension moderate control Current Visit: Yes Status: Chronic Continue antihypertensives --UTI (urinary tract infection) Current Visit: Yes Status: Acute 10 WBCs in the urine, Patient on Rocephin for the pneumonia which should cover the urinary tract infection also Follow cultures -- DVT prophylaxis Current Visit: Yes Status: Acute On heparin and GI prophylaxis We will closely monitor the patient and adjust management as needed Possible discharge home tomorrow on oral antibiotics ,after finishing 3 days of IV antibiotics if stable Plan of care reviewed with the patient and her nurse History PUI?: No Hospitalist Physical - Constitutional Vitals: Temp Pulse Resp BP Pulse Ox 97.8 F 57 L 18 92/47 100 06/12/19 08:38 06/12/19 10:00 06/12/19 08:38 06/12/19 08:38 06/12/19 08:38 General appearance: Present: no acute distress, well-nourished JULIO score - Julio Score Age > 65: (0) No Aspirin use within the Past 7 Days: (0) No 3 or more CAD Risk Factors: (1) Yes 2 or more Angina events in past 24 hrs: (0) No Known CAD with more than 50% Stenosis: (0) No Elevated Cardiac Markers: (0) No ST Deviation Greater than 0.5mm: (0) No JULIO Score: 1 Results - Labs CBC & Chem 7: 06/12/19 04:54 06/12/19 04:54 Labs: Laboratory Last Values WBC 4.1 K/mm3 (4.5-11.0) L 06/12/19 04:54 RBC 3.38 M/mm3 (3.65-5.03) L 06/12/19 04:54 Hgb 8.8 gm/dl (10.1-14.3) L 06/12/19 04:54 Hct 27.4 % (30.3-42.9) L 06/12/19 04:54 MCV 81 fl (79-97) 06/12/19 04:54 MCH 26 pg (28-32) L 06/12/19 04:54 MCHC 32 % (30-34) 06/12/19 04:54 RDW 18.2 % (13.2-15.2) H 06/12/19 04:54 Plt Count 312 K/mm3 (140-440) 06/12/19 04:54 Lymph % (Auto) 19.8 % (13.4-35.0) 06/12/19 04:54 [place] % (Auto) 7.3 % (0.0-7.3) 06/12/19 04:54 Eos % (Auto) 1.0 % (0.0-4.3) 06/12/19 04:54 Baso % (Auto) 0.6 % (0.0-1.8) 06/12/19 04:54 Lymph # 0.8 K/mm3 (1.2-5.4) L 06/12/19 04:54 [place] # 0.3 K/mm3 (0.0-0.8) 06/12/19 04:54 Eos # 0.0 K/mm3 (0.0-0.4) 06/12/19 04:54 Baso # 0.0 K/mm3 (0.0-0.1) 06/12/19 04:54 Seg Neutrophils % 71.3 % (40.0-70.0) H 06/12/19 04:54 Seg Neutrophils # 2.9 K/mm3 (1.8-7.7) 06/12/19 04:54 PT 13.3 Sec. (12.2-14.9) 06/11/19 12:57 INR 1.00 (0.87-1.13) 06/11/19 12:57 Sodium 144 mmol/L (137-145) 06/12/19 04:54 Potassium 4.3 mmol/L (3.6-5.0) 06/12/19 04:54 Chloride 108.4 mmol/L (98-107) H 06/12/19 04:54 Carbon Dioxide 22 mmol/L (22-30) 06/12/19 04:54 Anion Gap 18 mmol/L 06/12/19 04:54 BUN 84 mg/dL (7-17) H 06/12/19 04:54 Creatinine 2.0 mg/dL (0.7-1.2) H 06/12/19 04:54 Estimated GFR 30 ml/min 06/12/19 04:54 BUN/Creatinine Ratio 42 % 06/12/19 04:54 Glucose 110 mg/dL (65-100) H 06/12/19 04:54 POC Glucose 91 (70-105) 06/12/19 08:46 Lactic Acid 1.30 mmol/L (0.7-2.0) 06/11/19 14:45 Uric Acid 13.2 mg/dL (3.5-7.6) H 06/11/19 14:45 Calcium 8.6 mg/dL (8.4-10.2) 06/12/19 04:54 Magnesium 2.90 mg/dL (1.7-2.3) H 06/11/19 12:57 Ferritin 126.4 ng/mL (13.0-400.0) 06/11/19 14:45 Total Bilirubin 0.20 mg/dL (0.1-1.2) 06/12/19 04:54 AST 22 units/L (5-40) 06/12/19 04:54 ALT 10 units/L (7-56) 06/12/19 04:54 Alkaline Phosphatase 33 units/L (35-129) L 06/12/19 04:54 Lactate Dehydrogenase 147 units/L (91-180) 06/11/19 14:45 Total Creatine Kinase 50 units/L (30-135) 06/11/19 12:57 C-Reactive Protein 0.50 mg/dL (0.00-1.30) 06/11/19 14:45 Total Protein 6.6 g/dL (6.3-8.2) 06/12/19 04:54 Albumin 3.4 g/dL (3.9-5) L 06/12/19 04:54 Albumin/Globulin Ratio 1.1 % 06/12/19 04:54 TSH 1.880 mlU/mL (0.270-4.200) 06/11/19 14:45 Urine Color Yellow (Yellow) 06/11/19 17:07 Urine Turbidity Clear (Clear) 06/11/19 17:07 Urine pH 5.0 (5.0-7.0) 06/11/19 17:07 Ur Specific [place] 1.012 (1.003-1.030) 06/11/19 17:07 Urine Protein <15 mg/dl mg/dL (Negative) 06/11/19 17:07 Urine Glucose (UA) Neg mg/dL (Negative) 06/11/19 17:07 Urine Ketones Tr mg/dL (Negative) 06/11/19 17:07 Urine Blood Sm (Negative) 06/11/19 17:07 Urine Nitrite Neg (Negative) 06/11/19 17:07 Urine Bilirubin Neg (Negative) 06/11/19 17:07 Urine Urobilinogen < 2.0 mg/dL (<2.0) 06/11/19 17:07 Ur Leukocyte Esterase Neg (Negative) 06/11/19 17:07 Urine WBC (Auto) 10.0 /HPF (0.0-6.0) H 06/11/19 17:07 Urine RBC (Auto) 4.0 /HPF (0.0-6.0) 06/11/19 17:07 U Epithel Cells (Auto) 1.0 /HPF (0-13.0) 06/11/19 17:07 Urine Bacteria (Auto) 1+ /HPF (Negative) 06/11/19 17:07 Hyaline Casts 4 /LPF 06/11/19 17:07 Urine Mucus Few /HPF 06/11/19 17:07 Urine Osmolality 406 Mosm/kg 06/11/19 17:07 Urine Creatinine 80.2 mg/dL (0.1-20.0) H 06/11/19 17:07 Urine Sodium 24 mmol/L 06/11/19 17:07 Influenza A (Rapid) Negative (Negative) 06/11/19 16:01 Influenza B (Rapid) Negative (Negative) 06/11/19 16:01 Microbiology: Microbiology 04/07/20 17:07 Urine,Clean Catch Urine Culture - Preliminary 06/11/19 14:45 Peripheral/Venous Blood Culture - Preliminary Culture in Progress 06/11/19 14:45 Peripheral/Venous Blood Culture - Preliminary Culture in Progress Carcamo/IV: Voiding Method Toilet IV Catheter Type [Right INT / Saline Lock Antecubital] Active Medications - Current Medications Current Medications: Generic Name Dose Route Start Last Admin Trade Name Freq PRN Reason Stop Dose Admin Acetaminophen/Hydrocodone Bitart 1 each 06/11/19 21:09 06/11/19 22:17 [place] 5/325 PO 1 each Q6H PRN Administration PAIN(4-6) Amlodipine Besylate 10 mg 06/11/19 22:00 06/12/19 10:15 Amlodipine PO 10 mg DAILY WILLIAM Administration Cyclobenzaprine HCl 10 mg 06/11/19 21:09 Flexeril PO TID PRN Muscle Spasm Heparin Sodium (Porcine) 5,000 unit 06/11/19 22:15 06/12/19 10:16 Heparin SUB-Q 5,000 unit Q12HR [facility] Administration Insulin Human Isoph/Insulin Regular 15 unit 06/11/19 22:00 06/12/19 10:16 Humulin 70/30 SUB-Q Not Given BID WILLIAM Insulin Human Lispro 0 unit 06/12/19 07:30 06/12/19 10:16 Humalog SUB-Q Not Given ACHS [facility] Protocol Lisinopril 40 mg 06/11/19 22:00 06/12/19 10:15 Zestril PO 40 mg QDAY [facility] Administration Miscellaneous Medication 1,000 mg 06/11/19 21:15 Metformin Hcl [Glumetza] PO QDAY [facility] Ondansetron HCl 4 mg 06/11/19 21:09 Zofran Odt PO Q8H PRN Nausea And Vomiting Pregabalin 50 mg 06/11/19 22:00 06/12/19 10:15 Pregabalin PO 50 mg DAILY [facility] Administration
[2019-06-12] MEDS: HYDROcodone/ACETAMINOPHEN 5-325 MG TAB PO PRN (11:57)
--- NOTE | 2019-06-12 16:00 | Consultation ---
History of Present Illness - Reason for Consult Consult date: 06/12/19 acute renal failure - History of Present Illness The patient is a 63 YO female with history significant for DM type 2 and Hy pertension who presented to [facility] ED 06/10 with c/o persistent N , V and generalized weakness of 4 days duration. Due to N&V she barely had any food for the past 4-5 days. Since admission the N & V is better. She also reports having orthostatic dizziness since admission. Patient was taking Ibuprofen. Patient denies any sick contact, diarrhea, abd pain, fever, chills, cough, sob, cp, dysuria, hematuria or syncope. Work-up in the ER showed R ML pneumonia and Creat of 2.6. Her BP has been low today. Nephrology was consulted for further evaluation. Past History Past Medical History: diabetes, hypertension Medications and Allergies Allergies Allergy/AdvReac Type Severity Reaction Status Date / Time No Known Allergies Allergy Verified 02/22/19 17:08 Home Medications Medication Instructions Recorded Confirmed Last Taken Type Ibuprofen [Motrin] 600 mg PO Q8H PRN #30 tablet 11/22/12 06/12/19 Unknown Rx Insulin Aspart Prot/Aspart(Nf) 30 units SQ AMHY 11/22/12 06/12/19 12/23/17 History [Novolog Mix 70/30] Metformin HCl [Glumetza] 1,000 mg PO QDAY 11/22/12 06/12/19 11/21/12 History 100 mg Pregabalin [Lyrica] 50 mg PO DAILY 11/22/12 06/12/19 11/22/12 08:18 History 20 mg amLODIPine [Norvasc] 10 mg PO DAILY 11/22/12 06/12/19 Unknown History lisinopriL [Zestril] 40 mg PO QDAY 11/22/12 06/12/19 12/23/17 History 40 mg Nitrofurantoin Macrocrystal 100 mg PO BID #14 capsule 12/16/17 06/12/19 Unknown Rx [Macrodantin] Phenazopyridine [Pyridium] 100 mg PO TID #9 tab 12/16/17 06/12/19 Unknown Rx HYDROcodone/APAP 5-325 [[place] 1 each PO Q6HR PRN #14 tablet 03/08/18 06/12/19 Unknown Rx 5/325] Ibuprofen [Motrin] 800 mg PO Q8HR PRN #30 tablet 03/08/18 06/12/19 Unknown Rx Ondansetron [Zofran Odt] 4 mg PO Q8HR PRN #20 tab.rapdis 03/08/18 06/12/19 Unknown Rx Cyclobenzaprine [Flexeril] 10 mg PO TID PRN #12 tablet 02/05/19 06/12/19 Unknown Rx Ibuprofen [Motrin] 600 mg PO Q8H PRN #30 tablet 02/23/19 06/12/19 Unknown Rx oxyCODONE /ACETAMINOPHEN [Percocet 1 tab PO Q6HR PRN #10 tablet 02/23/19 06/12/19 Unknown Rx 5/325] Active Meds: Active Medications Acetaminophen/Hydrocodone Bitart ([place] 5/325) 1 each PO Q6H PRN PRN Reason: PAIN(4-6) Last Admin: 06/12/19 11:57 Dose: 1 each Documented by: Amlodipine Besylate (Amlodipine) 10 mg PO DAILY [facility] Last Admin: 06/12/19 10:15 Dose: 10 mg Documented by: Cyclobenzaprine HCl (Flexeril) 10 mg PO TID PRN PRN Reason: Muscle Spasm Heparin Sodium (Porcine) (Heparin) 5,000 unit SUB-Q Q12HR [facility] Last Admin: 06/12/19 10:16 Dose: 5,000 unit Documented by: Insulin Human Isoph/Insulin Regular (Humulin 70/30) 15 unit SUB-Q BID [facility] Last Admin: 06/12/19 12:11 Dose: 15 unit Documented by: Insulin Human Lispro (Humalog) 0 unit SUB-Q [facility]; Protocol Last Admin: 06/12/19 11:59 Dose: 3 unit Documented by: Lisinopril (Zestril) 40 mg PO QDAY [facility] Last Admin: 06/12/19 10:15 Dose: 40 mg Documented by: Miscellaneous Medication (Metformin Hcl [Glumetza]) 1,000 mg PO QDAY [facility] Ondansetron HCl (Zofran Odt) 4 mg PO Q8H PRN PRN Reason: Nausea And Vomiting Last Admin: 06/12/19 11:57 Dose: 4 mg Documented by: Pregabalin (Pregabalin) 50 mg PO DAILY [facility] Last Admin: 06/12/19 10:15 Dose: 50 mg Documented by: Review of Systems Constitutional: anorexia, fatigue, weakness, malaise, poor appetite, no weight loss, no weight gain, no fever, no chills Breasts: deferred Cardiovascular: lightheadedness, high blood pressure, no chest pain, no edema, no syncope, no shortness of breath, no leg edema Respiratory: no cough, no hemoptysis, no shortness of breath Gastrointestinal: nausea, vomiting, no abdominal pain, no diarrhea, no melena Genitourinary Female: no dysuria, no hematuria Integumentary: no wounds Neurological: weakness, no paralysis, no convulsions, no aphasia, no change in speech, no change in mentation, no confusion Exam - Vital Signs Vital signs: Vital Signs Temp Pulse Resp BP Pulse Ox 97.7 F 91 H 14 175/101 100 06/11/19 12:29 06/11/19 12:29 06/11/19 12:29 06/11/19 12:29 06/11/19 12:29 - General Appearance General appearance: well-developed, appears stated age, other (no distress, appears emaciated) EENT: ATNC, PERRL, mucous membranes dry, hearing intact, vision intact Neck: Present: neck supple, trachea midline Respiratory: Clear to Ascultation Gastrointestinal: Present: normoactive bowel sounds. Absent: tenderness, distended Integumentary: no rash, warm and dry Neurologic: no focal deficit, no asterixis, alert and oriented x3 Musculoskeletal: Present: other (no edema) Psychiatric: cooperative Results - Lab Results 06/12/19 04:54 06/12/19 04:54 Most recent lab results Calcium 8.6 mg/dL (8.4-10.2) 06/12/19 04:54 Magnesium 2.90 mg/dL (1.7-2.3) H 06/11/19 12:57 Urine Creatinine 80.2 mg/dL (0.1-20.0) H 06/11/19 17:07 Urine Sodium 24 mmol/L 06/11/19 17:07 - Image Kidney/bladder ultrasound: pending Assessment and Plan 1. Acute kidney injury: CINDY secondary to vasomotor nephropathy in the setting of volume depletion and hypotension. CT abdomen negative for hydronephrosis. Renal function is slightly better today. Started on IV fluids. Monitor renal function. Renal prognosis is guarded. Avoid nephrotoxic agents. Meds dosage based on GFR. 2. FEN: Metabolic acidosis, improving, monitor. Monitor lytes and volume status. 3. Hypotenison: IV fluid bolus ordered. Hold / stop BP meds. Monitor BP. 4. R ML pneumonia: Pneumonia protocol. Influenza negative. 5. Anemia, POA. 6. DM type 2.
[2019-06-12] MEDS ORDERED: SODIUM CHLORIDE 0.9% 500 ML 500 ML IV ONE ×2 (16:49→20:33)
[2019-06-12] MEDS ORDERED: SODIUM CHLORIDE 0.45% 1000 ML 1,000 ML IV SCH (17:00)
[2019-06-12] MEDS ORDERED: cefTRIAXone/NS 1 GM/50 ML 1 GM/50 ML BAG IV ONE (18:45)
[2019-06-12] MEDS: SODIUM CHLORIDE 0.9% 1000 ML 1,000 ML IV SCH (21:12)
[2019-06-12] MEDS: cefTRIAXone/NS 1 GM/50 ML 1 GM/50 ML BAG IV SCH (21:13)
[2019-06-12] MEDS: AZITHROMYCIN 500 MG in SODIUM CHLORIDE 0.9% 250ML 250 ML IV SCH (22:17)
[2019-06-13 04:25] LABS: Calcium 7.6 mg/dL (8.4-10.2)
[2019-06-13] MEDS: HYDROcodone/ACETAMINOPHEN 5-325 MG TAB PO PRN (06:37)
[2019-06-13] MEDS: INSULIN LISPRO 100 UNIT/ML SUB-Q SCH ×2 (09:36→11:51)
[2019-06-13] MEDS: PREGABALIN 25 MG CAP PO SCH (09:55)
[2019-06-13] MEDS: cefTRIAXone/NS 1 GM/50 ML 1 GM/50 ML BAG IV SCH (09:55)
[2019-06-13] MEDS: HEPARIN 5,000 UNIT/1 ML VIAL SUB-Q SCH (09:55)
[2019-06-13] MEDS: AZITHROMYCIN 500 MG in SODIUM CHLORIDE 0.9% 250ML 250 ML IV SCH (09:56)
[2019-06-13] MEDS: SODIUM CHLORIDE 0.9% 1000 ML 1,000 ML IV SCH (09:56)
[2019-06-13] MEDS ORDERED: AZITHROMYCIN 500 MG in SODIUM CHLORIDE 0.9% 250ML 250 ML IV SCH (10:00)
--- NOTE | 2019-06-13 12:55 | Progress Note ---
Assessment and Plan 1. Acute kidney injury: CINDY secondary to vasomotor nephropathy in the setting of volume depletion and hypotension. CT abdomen negative for hydronephrosis. Renal function is improving. Continue IV fluids. Monitor renal function. Renal prognosis is guarded. Avoid nephrotoxic agents. Meds dosage based on GFR. 2. FEN: Metabolic acidosis, improving, monitor. Monitor lytes and volume status. 3. Hypotension: BP is better. Monitor BP. 4. R ML pneumonia: Pneumonia protocol. Influenza negative. 5. Anemia, POA. 6. DM type 2. - Subjective: Patient was seen and examined at the bedside. Doing ok. - General Appearance: General appearance: well-developed, appears stated age, no distress, appears emaciated HEENT: ATNC, MAXWELL, mucous membranes dry, hearing intact, vision intact Neck: neck supple, trachea midline Respiratory: Clear to Ascultation Gastrointestinal: soft, normoactive bowel sounds, not tender, not distended Integumentary: no rash, warm and dry Neurologic: no focal deficit, no asterixis, alert and oriented x3 Ext: Present: no edema Psychiatric: cooperative Subjective Date of service: 06/13/19 PUI?: No Objective - Vital Signs Vital signs: Vital Signs - 12hr 06/13/19 06/13/19 06/13/19 04:31 06:37 07:42 Temperature 97.4 F L 96.7 F L Pulse Rate 61 63 Respiratory 18 18 19 Rate Blood Pressure 104/60 Blood Pressure 100/63 [Right] O2 Sat by Pulse 94 100 Oximetry 06/13/19 06/13/19 06/13/19 08:07 11:00 12:30 Temperature 96.7 F L 96.2 F L Pulse Rate 63 57 L 68 Respiratory 19 19 Rate Blood Pressure Blood Pressure 100/63 115/68 [Right] O2 Sat by Pulse 100 100 Oximetry - Lab 06/12/19 04:54 06/13/19 03:55 Most recent lab results Calcium 7.6 mg/dL (8.4-10.2) L 06/13/19 03:55 Phosphorus 2.50 mg/dL (2.5-4.5) 06/13/19 03:55 Magnesium 2.90 mg/dL (1.7-2.3) H 06/11/19 12:57 Urine Creatinine 80.2 mg/dL (0.1-20.0) H 06/11/19 17:07 Urine Sodium 24 mmol/L 06/11/19 17:07 Medications & Allergies - Medications Allergies/Adverse Reactions: Allergies No Known Allergies Allergy (Verified 02/22/19 17:08) Home Medications: Home Medications Medication Instructions Recorded Confirmed Last Taken Type Ibuprofen [Motrin 600 MG tab] 600 mg PO Q8H PRN #30 tablet 11/22/12 06/12/19 Unknown Rx Insulin Aspart Prot/Aspart(Nf) 30 units SQ AMHY 11/22/12 06/12/19 12/23/17 History [NovoLOG Mix 70/30 VIAL] Pregabalin 50 mg PO DAILY 11/22/12 06/12/19 11/22/12 08:18 History 20 mg amLODIPine 10 mg PO DAILY 11/22/12 06/12/19 Unknown History Nitrofurantoin Macrocrystal 100 mg PO BID #14 capsule 12/16/17 06/12/19 Unknown Rx [Macrodantin] Phenazopyridine [Pyridium] 100 mg PO TID #9 tab 12/16/17 06/12/19 Unknown Rx HYDROcodone/APAP 5-325 [[place] 1 each PO Q6HR PRN #14 tablet 03/08/18 06/12/19 Unknown Rx 5-325 mg TAB] Ondansetron [Zofran ODT TAB] 4 mg PO Q8HR PRN #20 tab.rapdis 03/08/18 06/12/19 Unknown Rx Cyclobenzaprine [Flexeril 10 MG 10 mg PO TID PRN #12 tablet 02/05/19 06/12/19 Unknown Rx TAB] oxyCODONE /ACETAMINOPHEN [Percocet 1 tab PO Q6HR PRN #10 tablet 02/23/19 06/12/19 Unknown Rx 5/325 mg] Azithromycin [Zithromax TAB] 500 mg PO QDAY #7 tablet 06/13/19 Unknown Rx guaiFENesin/DEXTROMETHORPHAN 10 ml PO QID PRN #1 bottle 06/13/19 Unknown Rx [Robitussin Cough-Chest Dm Liq] Active Medications: Generic Name Dose Route Start Last Admin Trade Name Freq PRN Reason Stop Dose Admin Acetaminophen/Hydrocodone Bitart 1 each 06/11/19 21:09 06/13/19 06:37 [place] 5/325 PO 1 each Q6H PRN Administration PAIN(4-6) Azithromycin 500 mg 06/14/19 10:00 Zithromax PO 06/16/19 10:01 QDAY WILLIAM Cyclobenzaprine HCl 10 mg 06/11/19 21:09 Flexeril PO TID PRN Muscle Spasm Heparin Sodium (Porcine) 5,000 unit 06/11/19 22:15 06/13/19 09:55 Heparin SUB-Q 5,000 unit Q12HR WILLIAM Administration Ceftriaxone Sodium 1 gm in 50 mls @ 100 mls/hr 06/12/19 20:00 06/13/19 09:55 Rocephin/Ns 1 Gm/50 Ml IV 100 mls/hr Q24HR WILLIAM Administration Protocol Sodium Chloride 1,000 mls @ 100 mls/hr 06/12/19 19:00 06/13/19 09:56 Nacl 0.9% 1000 Ml IV 100 mls/hr DIRECT WILLIAM Administration Insulin Human Lispro 0 unit 06/12/19 07:30 06/13/19 11:51 Humalog SUB-Q Not Given ACHS WILLIAM Protocol Ondansetron HCl 4 mg 06/11/19 21:09 06/12/19 11:57 Zofran Odt PO 4 mg Q8H PRN Administration Nausea And Vomiting Pregabalin 50 mg 06/11/19 22:00 06/13/19 09:55 Pregabalin PO 50 mg DAILY WILLIAM Administration
--- NOTE | 2019-06-13 15:18 | Discharge Summary ---
Providers - Providers Date of Admission: 06/13/19 09:12 Date of discharge: 06/13/19 Attending physician: VICTORIANO MATSON 06/12/19 15:38 Consult to Physician [CONS] Routine Comment: Consulting Provider: JOANNA KOENIG Physician Instructions: Reason For Exam: CINDY Primary care physician: [employer] Hospitalization Condition: Good Disposition: DC-01 TO HOME OR SELFCARE Time spent for discharge: 32 min Core Measure Documentation - Palliative Care Palliative Care/ Comfort Measures: Not Applicable - Core Measures Any of the following diagnoses?: none Exam - Constitutional Vitals: Temp Pulse Resp BP Pulse Ox 96.2 F L 68 19 115/68 100 06/13/19 12:30 06/13/19 12:30 06/13/19 12:30 06/13/19 12:30 06/13/19 12:30 General appearance: Present: no acute distress, well-nourished - EENT Eyes: Present: PERRL, EOM intact - Neck Neck: Present: supple, normal ROM - Respiratory Respiratory effort: normal Respiratory: bilateral: diminished, negative: rales, rhonchi, wheezing - Cardiovascular Rhythm: regular Heart Sounds: Present: S1 & S2 - Extremities Extremities: no ischemia, No edema - Abdominal General gastrointestinal: Present: soft, non-tender, non-distended, normal bowel sounds - Integumentary Integumentary: Present: clear, warm - Musculoskeletal Musculoskeletal: strength equal bilaterally - Psychiatric Psychiatric: appropriate mood/affect, cooperative - Neurologic Neurologic: CNII-XII intact, moves all extremities Plan Activity: advance as tolerated Diet: diabetic Additional Instructions: If you have severe chest pain or severe child shortness of breath, contact MD. Or go to emergency room. Do not take metformin until your kidney function comes back to normal. Check with side laster staple Follow up with: LAUREN STEPHEN MD [Primary Care Provider] - 3-5 Days JOANNA KOENIG MD [Staff Physician] - 7 Days
[2019-06-13 16:45] VITALS: BP 112/59
[2019-06-14] MEDS ORDERED: AZITHROMYCIN 250 MG TAB PO SCH (10:00)
== END 2019-06-13 17:21 | disposition home or self-care (01) | DRG 193 ==
LOC: ED 12:04 → 4A 14:23 → OBSVTOIN 06-13 09:12
PROVIDERS: ADMIT Internal Medicine; ATTEND Internal Medicine
DX: J18.0 Bronchopneumonia, unspecified organism (principal); N17.0 Acute kidney failure with tubular necrosis; N30.00 Acute cystitis without hematuria; E86.0 Dehydration; I10 Essential (primary) hypertension; E11.40 Type 2 diabetes mellitus with diabetic neuropathy, unspecified; E11.649 Type 2 diabetes mellitus with hypoglycemia without coma; D86.9 Sarcoidosis, unspecified; I95.9 Hypotension, unspecified; E86.9 Volume depletion, unspecified; E87.2 Acidosis; Z82.49 Family history of ischemic heart disease and other diseases of the circulatory system; D64.9 Anemia, unspecified; Z79.4 Long term (current) use of insulin
CPT/HCPCS: 36415; 71045; 74176; 80048; 80053; 81001; 82140; 82550; 82570; 82728; 82962; 83036; 83615; 83735; 83935; 84100; 84300; 84443; 84550; 85025; 85027; 85610; 86140; 87040; 87086; 87400; 93005; 93010; G0378; J0456; J0696; J1644; J1815; J2765; J7030; J7040; J7050; Q0162

== ENCOUNTER 2019-11-03 10:52 | Observation (INO) | payer MEDICARE ==
--- NOTE | 2019-11-03 11:43 | XRay Report ---
CHEST 1 VIEW INDICATION / CLINICAL INFORMATION: MAIN: Chest Pain for 2 days. COMPARISON: 06/11/2019. FINDINGS: SUPPORT DEVICES: None. HEART / MEDIASTINUM: No significant abnormality. LUNGS / PLEURA: No significant pulmonary or pleural abnormality. No pneumothorax. ADDITIONAL FINDINGS: No significant additional findings. IMPRESSION: 1. No acute findings. No significant interval change. Signer Name: Patricio Stephenson MD Signed: 11/03/2019 11:39 AM Workstation Name: [id number]
[2019-11-03 12:13] LABS: Basophils # (Auto) 0.1 K/mm3 (0.0-0.1); Basophils % (Auto) 0.9 % (0.0-1.8); Eosinophils % (Auto) 0.2 % (0.0-4.3); Hemoglobin 6.1 gm/dl (10.1-14.3); Lymphocytes # (Auto) 0.9 K/mm3 (1.2-5.4); Mean Corpuscular HGB Conc 31 % (30-34); Mean Corpuscular Volume 78 fl (79-97); Monocytes # (Auto) 0.5 K/mm3 (0.0-0.8); Monocytes % (Auto) 5.5 % (0.0-7.3); Platelet Count 398 K/mm3 (140-440); Red Blood Count 2.47 M/mm3 (3.65-5.03); Red Cell Distribution Width 18.3 % (13.2-15.2)
[2019-11-03 12:14] LABS: Hematocrit 19.3 % (30.3-42.9)
[2019-11-03] MEDS ORDERED: SODIUM CHLORIDE 0.9% 500 ML 500 ML IV ONE (12:26)
[2019-11-03 12:31] LABS: BUN/Creatinine Ratio 18; Blood Urea Nitrogen 20 mg/dL (7-17); Calcium 8.6 mg/dL (8.4-10.2); Hemolysis Index 1
--- NOTE | 2019-11-03 12:54 | Emergency Department Report ---
ED Chest Pain HPI - General Chief Complaint: Chest Pain Stated Complaint: CHEST PAIN Time Seen by Provider: 11/03/19 12:25 Source: patient Mode of arrival: Ambulatory Limitations: Physical Limitation - History of Present Illness Initial Comments: Patient is 64 years old female with history of hypertension and diabetes and chronic anemia. Patient presented to the ER complaining of left-sided chest pain for the last 2 days. Patient stated that pain is heavy in nature with no radiation. Patient denied any shortness of breath, fever or chills. Patient denied any abdominal pain, nausea or vomiting. No hematemesis, hemoptysis, hematochezia, melena or hematuria. Patient is not taking any blood thinner medicine. MD Complaint: chest pain -: days(s) (2) Pain Location: left chest Pain Radiation: none Severity: moderate Severity scale (0 -10): 5 Quality: heaviness, sharp - Related Data Home Medications Medication Instructions Recorded Confirmed Last Taken Insulin Aspart Prot/Aspart(Nf) 30 units SQ AMHY 11/22/12 06/12/19 12/23/17 [NovoLOG Mix 70/30 VIAL] Pregabalin 50 mg PO DAILY 11/22/12 06/12/19 11/22/12 08:18 20 mg amLODIPine 10 mg PO DAILY 11/22/12 06/12/19 Unknown Previous Rx's Medication Instructions Recorded Last Taken Type Ibuprofen [Motrin 600 MG tab] 600 mg PO Q8H PRN #30 tablet 11/22/12 Unknown Rx Nitrofurantoin Macrocrystal 100 mg PO BID #14 capsule 12/16/17 Unknown Rx [Macrodantin] Phenazopyridine [Pyridium] 100 mg PO TID #9 tab 12/16/17 Unknown Rx HYDROcodone/APAP 5-325 [[place] 1 each PO Q6HR PRN #14 tablet 03/08/18 Unknown Rx 5-325 mg TAB] Ondansetron [Zofran ODT TAB] 4 mg PO Q8HR PRN #20 tab.rapdis 03/08/18 Unknown Rx Cyclobenzaprine [Flexeril 10 MG 10 mg PO TID PRN #12 tablet 02/05/19 Unknown Rx TAB] oxyCODONE /ACETAMINOPHEN [Percocet 1 tab PO Q6HR PRN #10 tablet 02/23/19 Unknown Rx 5/325 mg] Azithromycin [Zithromax TAB] 500 mg PO QDAY #7 tablet 06/13/19 Unknown Rx guaiFENesin/DEXTROMETHORPHAN 10 ml PO QID PRN #1 bottle 06/13/19 Unknown Rx [Robitussin Cough-Chest Dm Liq] Acetaminophen/Codeine [Tylenol 1 tab PO Q6H PRN #12 tab 06/26/19 Unknown Rx /Codeine # 3 tab] Ondansetron [Zofran Odt] 4 mg PO Q8HR PRN #12 tab.rapdis 06/26/19 Unknown Rx Pantoprazole [Protonix] 40 mg PO QAM #30 tablet 10/21/19 Unknown Rx Sucralfate [Carafate] 1 gm PO Q6HR 10 Days #40 tablet 10/21/19 Unknown Rx traMADoL [Ultram 50 MG tab] 50 mg PO Q8HR PRN #6 tablet 10/21/19 Unknown Rx Allergies Allergy/AdvReac Type Severity Reaction Status Date / Time No Known Allergies Allergy Verified 02/22/19 17:08 Heart Score - HEART Score History: Moderately suspicious EKG: Non-specific Age: 45-65 Risk factors: > 3 risk factors or hx of atherosclerotic disease Troponin: < normal limit HEART Score: 5 - Critical Actions Critical Actions: 4-6 pts:12-16.6% risk of adverse cardiac event. Should be admitted ED Review of Systems ROS: Stated complaint: CHEST PAIN Other details as noted in HPI Comment: All other systems reviewed and negative Constitutional: denies: chills, fever Respiratory: denies: cough, shortness of breath, SOB with exertion Cardiovascular: chest pain, palpitations. denies: dyspnea on exertion Gastrointestinal: denies: abdominal pain, nausea, vomiting Musculoskeletal: denies: back pain Neurological: weakness (Generalized weakness.). denies: headache, numbness, paresthesias, confusion, abnormal gait ED Past Medical Hx - Past Medical History Previous Medical History?: Yes Hx Hypertension: Yes Hx Diabetes: Yes Additional medical history: Shingles, Sarcadosis, neuropathy - Surgical History Past Surgical History?: Yes Additional Surgical History: Back Surgery, c section - Social History Smoking Status: Never Smoker Substance Use Type: None - Medications Home Medications: Home Medications Medication Instructions Recorded Confirmed Last Taken Type Ibuprofen [Motrin 600 MG tab] 600 mg PO Q8H PRN #30 tablet 11/22/12 06/12/19 Unknown Rx Insulin Aspart Prot/Aspart(Nf) 30 units SQ AMHY 11/22/12 06/12/19 12/23/17 History [NovoLOG Mix 70/30 VIAL] Pregabalin 50 mg PO DAILY 11/22/12 06/12/19 11/22/12 08:18 History 20 mg amLODIPine 10 mg PO DAILY 11/22/12 06/12/19 Unknown History Nitrofurantoin Macrocrystal 100 mg PO BID #14 capsule 12/16/17 06/12/19 Unknown Rx [Macrodantin] Phenazopyridine [Pyridium] 100 mg PO TID #9 tab 12/16/17 06/12/19 Unknown Rx HYDROcodone/APAP 5-325 [[place] 1 each PO Q6HR PRN #14 tablet 03/08/18 06/12/19 Unknown Rx 5-325 mg TAB] Ondansetron [Zofran ODT TAB] 4 mg PO Q8HR PRN #20 tab.rapdis 03/08/18 06/12/19 Unknown Rx Cyclobenzaprine [Flexeril 10 MG 10 mg PO TID PRN #12 tablet 02/05/19 06/12/19 Unknown Rx TAB] oxyCODONE /ACETAMINOPHEN [Percocet 1 tab PO Q6HR PRN #10 tablet 02/23/19 06/12/19 Unknown Rx 5/325 mg] Azithromycin [Zithromax TAB] 500 mg PO QDAY #7 tablet 06/13/19 Unknown Rx guaiFENesin/DEXTROMETHORPHAN 10 ml PO QID PRN #1 bottle 06/13/19 Unknown Rx [Robitussin Cough-Chest Dm Liq] Acetaminophen/Codeine [Tylenol 1 tab PO Q6H PRN #12 tab 06/26/19 Unknown Rx /Codeine # 3 tab] Ondansetron [Zofran Odt] 4 mg PO Q8HR PRN #12 tab.rapdis 06/26/19 Unknown Rx Pantoprazole [Protonix] 40 mg PO QAM #30 tablet 10/21/19 Unknown Rx Sucralfate [Carafate] 1 gm PO Q6HR 10 Days #40 tablet 10/21/19 Unknown Rx traMADoL [Ultram 50 MG tab] 50 mg PO Q8HR PRN #6 tablet 10/21/19 Unknown Rx ED Physical Exam - General Limitations: Physical Limitation General appearance: alert, in no apparent distress - Eye Eye exam: Present: other (Pale conjunctiva.) - ENT ENT exam: Present: normal exam, normal orophraynx, mucous membranes moist - Neck Neck exam: Present: normal inspection, full ROM. Absent: tenderness, meningismus, lymphadenopathy, thyromegaly - Respiratory Respiratory exam: Present: normal lung sounds bilaterally - Cardiovascular Cardiovascular Exam: Present: regular rate, normal rhythm, normal heart sounds - GI/Abdominal GI/Abdominal exam: Present: soft, normal bowel sounds. Absent: distended, tenderness, guarding, rebound, rigid, mass, bruit, pulsatile mass, hernia - Extremities Exam Extremities exam: Present: normal inspection, full ROM, normal capillary refill. Absent: tenderness, pedal edema, joint swelling, calf tenderness - Back Exam Back exam: Present: normal inspection, full ROM. Absent: CVA tenderness (R), CVA tenderness (L) - Neurological Exam Neurological exam: Present: alert, oriented X3, CN II-XII intact, normal gait, reflexes normal. Absent: motor sensory deficit - Psychiatric Psychiatric exam: Present: normal mood - Skin Skin exam: Present: warm, intact, normal color ED Course Vital Signs 11/03/19 11/03/19 11/03/19 10:57 10:59 12:31 Temperature 99.9 F H Pulse Rate 96 H 98 H Respiratory 18 15 Rate Blood Pressure 144/75 O2 Sat by Pulse 100 Oximetry JULIO score - Julio Score Age > 65: (0) No Aspirin use within the Past 7 Days: (0) No 3 or more CAD Risk Factors: (1) Yes 2 or more Angina events in past 24 hrs: (0) No Known CAD with more than 50% Stenosis: (0) No Elevated Cardiac Markers: (0) No ST Deviation Greater than 0.5mm: (0) No JULIO Score: 1 ED Medical Decision Making - Lab Data Result diagrams: 11/03/19 11:42 11/03/19 11:42 - EKG Data -: EKG Interpreted by Ia EKG shows normal: sinus rhythm Rate: normal - EKG Data Interpretation: no acute changes - Radiology Data Radiology results: report reviewed - Medical Decision Making Patient is 64 years old female with history of hypertension and diabetes and chronic anemia. Patient presented to the ER complaining of left-sided chest pain for the last 2 days. Patient stated that pain is heavy in nature with no radiation. Patient denied any shortness of breath, fever or chills. Patient denied any abdominal pain, nausea or vomiting. No hematemesis, hemoptysis, hematochezia, melena or hematuria. Patient is not taking any blood thinner medicine. EKG showed no ST elevation. Labs reviewed and showed a hemoglobin of 6.1. Patient stated that she had history of chronic anemia. No active or acute bleeding at this moment. Patient transfused 1 units of PRBC. Rest of the labs are unremarkable including a negative troponin. I discussed the patient with Dr. Nichols, he agreed to admit the patient to medical service for further management. Critical Care Time: Yes Critical care time in (mins) excluding proc time.: 30 Critical care attestation.: If time is entered above; I have spent that time in minutes in the direct care of this critically ill patient, excluding procedure time. ED Disposition Clinical Impression: Chest pain, Acute anemia Disposition: 09 OP ADMIT IP TO THIS HOSP Is pt being admited?: Yes Condition: Stable Instructions: Chest Pain (ED) Referrals: PRIMARY CARE, [Primary Care Provider] - 3-5 Days
[2019-11-03 13:25] LABS: INR 1.07 (0.87-1.13)
[2019-11-03 13:26] LABS: Partial Thromboplastin Time 28.3 Sec. (24.2-36.6)
[2019-11-03 13:43] LABS: Alanine Aminotransferase 7 units/L (7-56); Albumin 3.7 g/dL (3.9-5)
[2019-11-03 13:51] LABS: Bilirubin,Direct < 0.2 mg/dL (0-0.2)
--- NOTE | 2019-11-03 14:32 | History and Physical Report ---
History of Present Illness Chief complaint: I am having chest pain History of present illness: 64 YO Female with HTN, DM complicated by Neuropathy, Shingles, DJD, Sarcoidosis presents to ED for evaluation. Patient states that she has experienced pain localized to the left side of her chest over the past 2 days with progressively worsening symptoms over the past 8 hours. Patient states that the pain is currently 5/10, sharp, crushing in nature, localized to the left chest, nonradiating, not worsened with exertion, not relieved with rest. Patient transported to [facility] via private vehicle for further care and evaluation of the aforementioned symptoms. Patient seen and evaluated in the emergency department. Lab and imaging studies reviewed. Patient found to have clinical symptoms consistent with angina. Patient placed in observation status and admitted to telemetry. Patient initiated on chest pain protocol. Patient denies fever, chills, palpitations, productive cough, skin rash, recent ill contacts, or known exposure to COVID-19. All medication listed at time of admission has been reconciled. Prior admission on 06/13/2019 reviewed. Advanced care planning conducted in ED. Past History Past Medical History: diabetes, hypertension, other (See HPI) Past Surgical History: , Other (Back surgery) Social history: single. denies: smoking, alcohol abuse Family history: hypertension Medications and Allergies Allergies Allergy/AdvReac Type Severity Reaction Status Date / Time No Known Allergies Allergy Verified 02/22/19 17:08 Home Medications Medication Instructions Recorded Confirmed Last Taken Type Ibuprofen [Motrin 600 MG tab] 600 mg PO Q8H PRN #30 tablet 11/22/12 11/03/19 Unknown Rx Insulin Aspart Prot/Aspart(Nf) 15 units SQ BID 11/22/12 11/03/19 12/23/17 History [NovoLOG Mix 70/30 VIAL] traMADoL [Ultram 50 MG tab] 50 mg PO Q8HR PRN #6 tablet 10/21/19 11/03/19 Unknown Rx Amlodipine Besylate/Benazepril 1 each PO DAILY 11/03/19 11/03/19 Unknown History [Amlodipine-Benazepril 10-40 mg] Review of Systems Constitutional: no weight gain, no fever, no chills, no sweats Ears, nose, mouth and throat: no ear pain, no ear discharge, no tinnitis, no decreased hearing, no nose pain Breasts: no change in shape, no swelling, no mass Cardiovascular: chest pain, no orthopnea, no palpitations, no dyspnea on exertion, no high blood pressure Respiratory: no cough, no cough with sputum, no excessive sputum, no hemoptysis Gastrointestinal: no abdominal pain, no nausea, no vomiting, no diarrhea Genitourinary Female: no urgency, no stress incontinence, no post void dribbling, no incomplete emptying Rectal: no pain, no incontinence, no bleeding Musculoskeletal: no neck stiffness, no neck pain, no shooting arm pain, no low back pain Integumentary: no rash, no pruritis, no redness, no sores (Hospitalist), no wounds Psychiatric: no anxiety, no memory loss, no change in sleep habits, no sleep disturbances, no insomnia Endocrine: no cold intolerance, no heat intolerance, no polyphagia, no excessive thirst, no polydipsia Hematologic/Lymphatic: no easy bruising, no easy bleeding, no lymphadenopathy, no lymphedema Allergic/Immunologic: no urticaria, no allergic rhinitis, no persistent infections, no anaphylaxis Exam - Constitutional Vitals: Temp Pulse Resp BP Pulse Ox 99.9 F H 98 H 15 144/75 100 11/03/19 10:57 11/03/19 12:31 11/03/19 12:31 11/03/19 10:59 11/03/19 10:59 General appearance: Present: mild distress, cachectic - EENT Eyes: Present: PERRL ENT: hearing intact, clear oral mucosa - Neck Neck: Present: supple, normal ROM - Respiratory Respiratory effort: normal Respiratory: bilateral: CTA - Cardiovascular Heart Sounds: Present: S1 & S2. Absent: rub, click - Extremities Extremities: pulses symmetrical, No edema Peripheral Pulses: within normal limits - Abdominal General gastrointestinal: Present: soft, non-tender, non-distended, normal bowel sounds Female genitourinary: Present: normal - Integumentary Integumentary: Present: clear, warm, dry - Musculoskeletal Musculoskeletal: gait normal, strength equal bilaterally - Psychiatric Psychiatric: appropriate mood/affect, intact judgment & insight - Neurologic Neurologic: CNII-XII intact, moves all extremities HEART Score - HEART Score EKG: Non-specific Age: 45-65 Risk factors: > 3 risk factors or hx of atherosclerotic disease Troponin: Troponin T < 0.010 ng/mL (0.00-0.029) 11/03/19 11:42 Troponin: < normal limit - Critical Actions Critical Actions: 4-6 pts:12-16.6% risk of adverse cardiac event. Should be admitted Results - Labs CBC & Chem 7: 11/03/19 18:15 11/03/19 11:42 Labs: Abnormal lab results 11/03/19 11/03/19 11/03/19 Range/Units 11:42 11:42 12:42 RBC 2.47 L (3.65-5.03) M/mm3 Hgb 6.1 L (10.1-14.3) gm/dl Hct 19.3 L* (30.3-42.9) % MCV 78 L (79-97) fl MCH 25 L (28-32) pg RDW 18.3 H (13.2-15.2) % Lymph % (Auto) 11.0 L (13.4-35.0) % Lymph # 0.9 L (1.2-5.4) K/mm3 Seg Neutrophils % 82.4 H (40.0-70.0) % Carbon Dioxide 21 L (22-30) mmol/L BUN 20 H (7-17) mg/dL Glucose 103 H (65-100) mg/dL POC Glucose 116 H (70-105) Albumin (3.9-5) g/dL Crossmatch 11/03/19 11/03/19 Range/Units 12:52 12:52 RBC (3.65-5.03) M/mm3 Hgb (10.1-14.3) gm/dl Hct (30.3-42.9) % MCV (79-97) fl MCH (28-32) pg RDW (13.2-15.2) % Lymph % (Auto) (13.4-35.0) % Lymph # (1.2-5.4) K/mm3 Seg Neutrophils % (40.0-70.0) % Carbon Dioxide (22-30) mmol/L BUN (7-17) mg/dL Glucose (65-100) mg/dL POC Glucose (70-105) Albumin 3.7 L (3.9-5) g/dL Crossmatch See Detail Assessment and Plan - Patient Problems (1) Angina at rest Current Visit: Yes Status: Acute Plan to address problem: Admit to telemetry, serial cardiac enzymes, EKG, telemetry, CTA chest, echocardiogram. (2) Gastroesophageal reflux disease Current Visit: Yes Status: Acute Qualifiers: Esophagitis presence: without esophagitis Qualified Code(s): K21.9 - Gastro-esophageal reflux disease without esophagitis Plan to address problem: PPI therapy, supportive care. Outpatient GI follow-up (3) Diabetes mellitus Current Visit: Yes Status: Acute Plan to address problem: Consistent carbohydrate diet, Accu-Chek, sliding scale insulin therapy, hypoglycemia protocol. (4) Sarcoidosis Current Visit: Yes Status: Acute Plan to address problem: Supportive care, outpatient rheumatology follow-up. (5) DVT prophylaxis Current Visit: Yes Status: Acute Plan to address problem: SCD to bilateral lower extremities while in bed, patient is ambulatory. (6) Advance care planning Current Visit: Yes Status: Acute Plan to address problem: Disease education conducted, prognosis discussed, patient is full code, patient knowledges understanding and agreement with care plan, +30 minutes.
[2019-11-03] MEDS ORDERED: ASPIRIN 81 MG TAB CHEW PO ONE (14:33)
[2019-11-03] MEDS ORDERED: ALBUTEROL 2.5 MG/3 ML NEBU IH PRN (14:34)
[2019-11-03] MEDS ORDERED: NITROGLYCERIN 0.4 MG TAB SUBL SL PRN (14:34)
[2019-11-03] MEDS ORDERED: ONDANSETRON 4 MG/2 ML INJ IV PRN (14:34)
[2019-11-03] MEDS ORDERED: ACETAMINOPHEN 325 MG TAB PO PRN ×2 (14:34)
[2019-11-03] MEDS ORDERED: CYCLOBENZAPRINE 10 MG TAB PO PRN (14:37)
[2019-11-03] MEDS ORDERED: ONDANSETRON 4 MG ODT TAB PO PRN (14:37)
[2019-11-03] MEDS ORDERED: guaiFENesin DM 200/20 MG ORAL LIQD 10 ML PO PRN (14:37)
[2019-11-03] MEDS ORDERED: INSULIN NPH/REGULAR 70/30 INJ SUB-Q SCH (14:45)
[2019-11-03 15:25] LABS: Chol/HDL Ratio 2.14 %
[2019-11-03] MEDS: SUCRALFATE 1 GM TAB PO SCH ×2 (17:42→23:59)
[2019-11-03 18:39] LABS: Basophils # (Auto) 0.1 K/mm3 (0.0-0.1); Basophils % (Auto) 0.7 % (0.0-1.8); Eosinophils % (Auto) 0.2 % (0.0-4.3); Hemoglobin 8.4 gm/dl (10.1-14.3); Lymphocytes # (Auto) 1.1 K/mm3 (1.2-5.4); Mean Corpuscular HGB Conc 32 % (30-34); Mean Corpuscular Volume 81 fl (79-97); Monocytes # (Auto) 0.5 K/mm3 (0.0-0.8); Monocytes % (Auto) 6.5 % (0.0-7.3); Platelet Count 358 K/mm3 (140-440); Red Blood Count 3.22 M/mm3 (3.65-5.03); Red Cell Distribution Width 18.6 % (13.2-15.2)
[2019-11-03] MEDS: INSULIN NPH/REGULAR 70/30 INJ SUB-Q SCH (20:01)
[2019-11-03] MEDS: ACETAMINOPHEN W/CODEINE 300-30 MG TAB PO PRN (23:58)
--- NOTE | 2019-11-04 01:46 | Cat Scan Report ---
CT angio chest INDICATION / CLINICAL INFORMATION: chest pain, elevated ddimer. TECHNIQUE: Axial CT images were obtained after injection of Omnipaque 350, 100 cc IV contrast using CTA protocol . 3 plane MIP / 3D reconstructions were produced. All CT scans at this location are performed using C T dose reduction for ALARA by means of automated exposure control. COMPARISON: None available. FINDINGS: Negative for lung mass, infiltrate or pleural fluid. No mediastinal mass or adenopathy. No aneurysm, dissection or pulmonary embolus. Imaging of the upper abdomen demonstrates a small right renal cyst superiorly. IMPRESSION: Negative for pulmonary embolus or pneumonia. Signer Name: Sha Mabry MD Signed: 11/04/2019 1:42 AM Workstation Name: [id number]
[2019-11-04] MEDS: SUCRALFATE 1 GM TAB PO SCH ×2 (05:17→11:50)
[2019-11-04] MEDS: ACETAMINOPHEN W/CODEINE 300-30 MG TAB PO PRN (07:17)
[2019-11-04] MEDS ORDERED: amLODIPine 10 MG TAB PO SCH (10:00)
[2019-11-04] MEDS ORDERED: PREGABALIN 25 MG CAP PO SCH (10:00)
[2019-11-04] MEDS ORDERED: PANTOPRAZOLE 40 MG TAB PO SCH (10:00)
[2019-11-04] MEDS: INSULIN NPH/REGULAR 70/30 INJ SUB-Q SCH (11:07)
[2019-11-04 12:21] VITALS: BP 131/67
--- NOTE | 2019-11-05 13:03 | Discharge Summary ---
Providers - Providers Date of Admission: 11/03/19 15:32 Attending physician: KENYA LOYD 11/03/19 Consult to Cardiac Rehabilitation [CONS] Routine Reason For Exam: Phase I 11/03/19 17:09 Consult to Dietitian/Nutrition [CONS] Routine Physician Instructions: Reason For Exam: Reason for Consult: Poor oral intake Primary care physician: ACCOUNTS PAYABLE BOOKKEEPER Hospitalization Condition: Stable Hospital course: 64 YO Female with HTN, DM complicated by Neuropathy, Shingles, DJD, Sarcoidosis presented to ED for evaluation. Patient stated that she had experienced pain localized to the left side of her chest over the past 2 days with progressively worsening symptoms over the past 8 hours. Patient stated that the pain was 5/10, sharp, crushing in nature, localized to the left chest, nonradiating, not worsened with exertion, not relieved with rest. Patient transported to [facility] via private vehicle for further care and evaluation of the aforementioned symptoms. Patient seen and evaluated in the emergency department. Lab and imaging studies reviewed. Patient found to have clinical symptoms consistent with angina. Patient placed in observation status and admitted to telemetry. Patient initiated on chest pain protocol. Patient convalesced well during hospital course. Serial cardiac enzymes, EKG were negative without indications of acute ischemia. Patient treated with PPI therapy with resolution of symptoms. Patient medically optimized on the day of discharge. Patient seen and evaluated prior to discharge but no significant physical exam findings. Patient discharged home with PPI therapy and instructed to follow-up with primary care physician within 3 to 5 days. And to follow-up with cardiology within 1 week. 35 minutes dedicated to patient discharge and coordination of care. Disposition: TO HOME OR SELFCARE - Discharge Diagnoses (1) Angina at rest Status: Acute (2) Gastroesophageal reflux disease Status: Acute Qualifiers: Esophagitis presence: without esophagitis Qualified Code(s): K21.9 - Gastro-esophageal reflux disease without esophagitis (3) Diabetes mellitus Status: Acute (4) Sarcoidosis Status: Acute (5) DVT prophylaxis Status: Acute (6) Advance care planning Status: Acute Core Measure Documentation - Palliative Care Palliative Care/ Comfort Measures: Not Applicable - Core Measures Any of the following diagnoses?: none Exam - Constitutional Vitals: Temp Pulse Resp BP Pulse Ox 98.3 F 60 16 131/67 100 11/04/19 11:00 11/04/19 12:00 11/04/19 15:00 11/04/19 11:00 11/04/19 11:00 General appearance: Present: cachectic - EENT Eyes: Present: PERRL ENT: hearing intact, clear oral mucosa - Neck Neck: Present: supple, normal ROM - Respiratory Respiratory effort: normal Respiratory: bilateral: CTA - Cardiovascular Heart Sounds: Present: S1 & S2. Absent: rub, click - Extremities Extremities: pulses symmetrical, No edema Peripheral Pulses: within normal limits - Abdominal General gastrointestinal: Present: soft, non-tender, non-distended, normal bowel sounds Female genitourinary: Present: normal - Integumentary Integumentary: Present: clear, warm, dry - Musculoskeletal Musculoskeletal: gait normal, strength equal bilaterally - Psychiatric Psychiatric: appropriate mood/affect, intact judgment & insight - Neurologic Neurologic: CNII-XII intact, moves all extremities Plan Activity: advance as tolerated Diet: regular Follow up with: PRIMARY CARE, [Primary Care Provider] - 3-5 Days Prescriptions: Pantoprazole [Protonix] 40 mg PO QDAY #30 tablet
== END 2019-11-04 18:00 | disposition home or self-care (01) ==
LOC: ED 10:52 → 4A 15:32
PROVIDERS: ADMIT Internal Medicine; ATTEND Internal Medicine
DX: I20.8 Other forms of angina pectoris (principal); K21.9 Gastro-esophageal reflux disease without esophagitis; E11.40 Type 2 diabetes mellitus with diabetic neuropathy, unspecified; D86.9 Sarcoidosis, unspecified; I10 Essential (primary) hypertension; M19.90 Unspecified osteoarthritis, unspecified site; D64.9 Anemia, unspecified; Z98.891 History of uterine scar from previous surgery; Z79.4 Long term (current) use of insulin; Z79.899 Other long term (current) drug therapy
CPT/HCPCS: 36415; 36430; 71045; 71275; 80048; 80061; 80076; 82962; 83880; 84484; 85025; 85379; 85610; 85730; 86850; 86900; 86901; 86920; 87641; 93005; 93306; 96360; 96361; 99291; G0378; J7040; P9016; Q9967; J1815

== ENCOUNTER 2019-12-02 10:47 | Outpatient (CLI) | payer MEDICARE ==
--- NOTE | 2019-12-02 13:36 | XRay Report ---
LEFT KNEE 3 VIEW(S) INDICATION / CLINICAL INFORMATION: PAIN IN LEFT KNEE COMPARISON: None available. FINDINGS: BONES / JOINT(S): No acute fracture or subluxation. Mild tricompartmental arthrosis. Generalized oste openia. SOFT TISSUES: Mild enthesopathy at the quadriceps insertion. ADDITIONAL FINDINGS: None. Signer Name: Patricio Stephenson MD Signed: 12/02/2019 1:31 PM Workstation Name: [id number]
--- NOTE | 2019-12-02 13:43 | XRay Report ---
. LUMBAR SPINE 3 VIEWS INDICATION / CLINICAL INFORMATION: BACK PAIN. COMPARISON: None available. FINDINGS: VERTEBRAE: No acute fracture. Mild anterolisthesis is noted at L4-L5. DISC SPACES / FACET JOINTS:Discogenic degenerative changes are most prominent at L4-L5 and L5-S1. Fac et arthropathy is also noted at these levels. There is narrowing of the neural foramen at L5-S1. PARASPINAL SOFT TISSUES:Vascular calcifications are noted. ADDITIONAL FINDINGS: None. Signer Name: Patricio Stephenson MD Signed: 12/02/2019 1:38 PM Workstation Name: [id number]
== END 2019-12-02 10:48 | disposition home or self-care (01) ==
LOC: XRAY 10:47
PROVIDERS: ATTEND Internal Medicine
DX: M17.12 Unilateral primary osteoarthritis, left knee (principal); M76.9 Unspecified enthesopathy, lower limb, excluding foot; M48.07 Spinal stenosis, lumbosacral region; M47.897 Other spondylosis, lumbosacral region; M47.896 Other spondylosis, lumbar region
CPT/HCPCS: 72100

== ENCOUNTER 2019-12-10 11:17 | Emergency (ER) | payer MEDICARE ==
[2019-12-10 15:24] VITALS: BP 146/86
--- NOTE | 2019-12-10 17:59 | Emergency Department Report ---
ED General Adult HPI - General Chief complaint: Extremity Injury, Upper Stated complaint: (R) HAND TINGLING Time Seen by Provider: 12/10/19 15:21 Source: patient Mode of arrival: Ambulatory Limitations: No Limitations - History of Present Illness Initial comments: 64-year-old -Slov[place] female patient presents with complaints of right wrist and hand burning and tingling x2 months. She has history of diabetes but denies history of neuropathy. She denies any injury to the right hand or wrist, arm pain, or chest pain. She rates her pain as a 9/10 in severity and states it worsens at night. Patient states she contacted her PCP, however she is unable to get an appointment at this time. Severity scale (0 -10): 2 - Related Data Home Medications Medication Instructions Recorded Confirmed Last Taken Insulin Aspart Prot/Aspart(Nf) 15 units SQ BID 11/22/12 11/03/19 12/23/17 [NovoLOG Mix 70/30 VIAL] Amlodipine Besylate/Benazepril 1 each PO DAILY 11/03/19 11/03/19 Unknown [Amlodipine-Benazepril 10-40 mg] Previous Rx's Medication Instructions Recorded Last Taken Type Ibuprofen [Motrin 600 MG tab] 600 mg PO Q8H PRN #30 tablet 11/22/12 Unknown Rx traMADoL [Ultram 50 MG tab] 50 mg PO Q8HR PRN #6 tablet 10/21/19 Unknown Rx Pantoprazole [Protonix] 40 mg PO QDAY #30 tablet 11/04/19 Unknown Rx Allergies Allergy/AdvReac Type Severity Reaction Status Date / Time No Known Allergies Allergy Verified 02/22/19 17:08 ED Review of Systems ROS: Stated complaint: (R) HAND TINGLING Other details as noted in HPI Constitutional: denies: chills, diaphoresis, fever, malaise, weakness Respiratory: denies: SOB with exertion Cardiovascular: denies: chest pain Musculoskeletal: arthralgia Neurological: paresthesias ED Past Medical Hx - Past Medical History Previous Medical History?: Yes Hx Hypertension: Yes Hx Diabetes: Yes Hx HIV: No Additional medical history: Shingles, Sarcadosis, neuropathy - Surgical History Past Surgical History?: Yes Additional Surgical History: Back Surgery, c section - Social History Smoking Status: Never Smoker - Medications Home Medications: Home Medications Medication Instructions Recorded Confirmed Last Taken Type Ibuprofen [Motrin 600 MG tab] 600 mg PO Q8H PRN #30 tablet 11/22/12 11/03/19 Unknown Rx Insulin Aspart Prot/Aspart(Nf) 15 units SQ BID 11/22/12 11/03/19 12/23/17 History [NovoLOG Mix 70/30 VIAL] traMADoL [Ultram 50 MG tab] 50 mg PO Q8HR PRN #6 tablet 10/21/19 11/03/19 Unknown Rx Amlodipine Besylate/Benazepril 1 each PO DAILY 11/03/19 11/03/19 Unknown History [Amlodipine-Benazepril 10-40 mg] Pantoprazole [Protonix] 40 mg PO QDAY #30 tablet 11/04/19 Unknown Rx ED Physical Exam - General Limitations: No Limitations General appearance: alert, in no apparent distress - Head Head exam: Present: atraumatic, normocephalic - Eye Eye exam: Present: normal appearance - ENT ENT exam: Present: mucous membranes moist - Respiratory Respiratory exam: Present: normal lung sounds bilaterally. Absent: respiratory distress - Cardiovascular Cardiovascular Exam: Present: regular rate - Expanded Upper Extremity Exam Right Forearm Wrist exam: Present: full ROM Hand Wrist exam: Present: full ROM, other (Normal perfusion and range of motion of all 5 fingers and the wrist noted; normal radial and ulnar pulses noted). Absent: tenderness, swelling, abrasion, laceration, ecchymosis, deformity, erythema Neuro motor exam: Present: wrist extension intact, thumb opposition intact - Back Exam Back exam: Present: normal inspection - Neurological Exam Neurological exam: Present: alert, oriented X3 - Psychiatric Psychiatric exam: Present: normal affect, normal mood - Skin Skin exam: Present: warm, dry, intact, normal color. Absent: rash ED Course Vital Signs 12/10/19 12/10/19 11:49 15:23 Temperature 98.6 F Pulse Rate 95 H 86 Respiratory 18 18 Rate Blood Pressure 161/101 146/86 [Right] O2 Sat by Pulse 100 100 Oximetry ED Medical Decision Making - Medical Decision Making 64-year-old -Slov[place] female patient presents with complaints of right wrist and hand burning and tingling x2 months. She has history of diabetes but denies history of neuropathy. She denies any injury to the right hand or wrist, arm pain, or chest pain. She rates her pain as a 9/10 in severity and states it worsens at night. Patient states she contacted her PCP, however she is unable to get an appointment at this time. Positive Phalen's test on exam. Patient has full range of motion and sensation of the right hand and wrist. Possible carpal tunnel syndrome versus diabetic neuropathy. Prescription for gabapentin given and patient placed in a Velcro wrist splint and informed to wear it at night. Her vitals are stable, she is well-appearing, stable discharge home. Strict return precautions were discussed in detail with patient who verbalized understanding. Critical care attestation.: If time is entered above; I have spent that time in minutes in the direct care of this critically ill patient, excluding procedure time. ED Disposition Clinical Impression: Right hand paresthesia Disposition: DC-01 TO HOME OR SELFCARE Condition: Stable Referrals: MARTIN ROSAS MD [Primary Care Provider] - 3-5 Days
[2019-12-10] MEDS ORDERED: HYDROcodone/ACETAMINOPHEN 5-325 MG TAB PO ONE (18:04)
[2019-12-10] MEDS ORDERED: NAPROXEN 500 MG TAB PO ONE (18:30)
== END 2019-12-10 18:18 | disposition home or self-care (01) ==
LOC: ED 11:17
DX: M25.531 Pain in right wrist (principal); R20.2 Paresthesia of skin; I10 Essential (primary) hypertension; E11.9 Type 2 diabetes mellitus without complications; Z79.4 Long term (current) use of insulin; Z79.899 Other long term (current) drug therapy
CPT/HCPCS: 99282; 99283

== ENCOUNTER 2019-12-23 15:46 | Emergency (ER) | payer MEDICARE ==
--- NOTE | 2019-12-23 16:08 | Event Note ---
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 Further treatment and workup at subsequent clinical providers discretion. Patient/guardian urged not to elope from the ED as their condition may be serious if not clinically assessed and managed. Initial orders include: labs ekg
[2019-12-23 16:20] LABS: Basophils % (Auto) 0.2 % (0.0-1.8); Eosinophils % (Auto) 0.1 % (0.0-4.3); Hematocrit 30.7 % (30.3-42.9); Hemoglobin 10.2 gm/dl (10.1-14.3); Lymphocytes % (Auto) 9.9 % (13.4-35.0); Mean Corpuscular HGB Conc 33 % (30-34); Mean Corpuscular Volume 78 fl (79-97); Monocytes # (Auto) 0.7 K/mm3 (0.0-0.8); Monocytes % (Auto) 6.8 % (0.0-7.3); Platelet Count 247 K/mm3 (140-440); Red Blood Count 3.96 M/mm3 (3.65-5.03)
[2019-12-23 16:39] LABS: Albumin 4.4 g/dL (3.9-5); BUN/Creatinine Ratio 21; Blood Urea Nitrogen 25 mg/dL (7-17); Calcium 9.3 mg/dL (8.4-10.2); Hemolysis Index 3
[2019-12-23 16:42] LABS: Alanine Aminotransferase < 5 units/L (7-56)
--- NOTE | 2019-12-23 16:50 | XRay Report ---
CHEST 1 VIEW 12/23/2019 3:42 PM INDICATION / CLINICAL INFORMATION: failure to thrive. COMPARISON: 11/03/19 FINDINGS: SUPPORT DEVICES: None. HEART / MEDIASTINUM: No significant abnormality. LUNGS / PLEURA: No significant pulmonary or pleural abnormality. No pneumothorax. ADDITIONAL FINDINGS: No significant additional findings. IMPRESSION: 1. No acute findings. No change. Signer Name: Rose Wilkes MD Signed: 12/23/2019 4:46 PM Workstation Name: [id number]
[2019-12-23] MEDS ORDERED: IBUPROFEN 400 MG TAB PO ONE (23:53)
[2019-12-23] MEDS ORDERED: ACETAMINOPHEN 325 MG TAB PO STA (23:54)
--- NOTE | 2019-12-23 23:54 | Emergency Department Report ---
ED General Adult HPI - General Chief complaint: Medical Clearance Stated complaint: PAIN PILL ADDICTION PUI?: No Time Seen by Provider: 12/23/19 16:02 Source: patient, RN notes reviewed, old records reviewed Mode of arrival: Ambulatory Limitations: No Limitations - History of Present Illness Initial comments: The patient was evaluated in the emergency department for symptoms described in the history of present illness. He/she was evaluated in the context of the global COVID-19 pandemic, which necessitated consideration that the patient might be at risk for infection with the virus that causes COVID-19. Institutional protocols and algorithms that pertain to the evaluation of patients at risk for COVID-19 are in a state of rapid change based on information released by regulatory bodies including the CDC and federal and state organizations. These policies and algorithms were followed during the patient's care in the emergency department. Please note that these policies, procedures and recommendations changed on a rapid basis. Patient is a 64-year-old female. I have evaluated this patient in the past. Her past medical history includes hypertension and insulin-dependent diabetes. She also has a history of dehydration, hypertension, and community-acquired pneumonia. 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 Martin Rosas. The patient presents to the ER with a complaint of nontraumatic prominence of her bilateral clavicles. The patient states that her clavicles are much more prominent than previously. She denies headache, neck pain, chest pain, abdominal pain, new/different shortness of breath, and dysuria. She has a chronic cough. She makes no complaint of homicidality, suicidality, or wanting to overdose. Apparently, as per enclosed documentation from her primary care office, they are concerned about "dramatic weight loss, anorexia, depression, decreased oral intake." The patient endorses an unintentional weight loss over the past few months. She reports being up-to-date with colonoscopy, mammogram, but does not believe she has had a Pap smear recently. No complaint of fever, night sweats. In the emergency room, the patient is drinking lemonade, and eating cookies, crackers. She is also noted to be quite engaged with her cellular phone. Apparently, there was some concern about the patient being addicted to pain pills. However, the patient indicates to me that she does not feel like she is addicted to pain pills. -: week(s), month(s) Consistency: constant Improves with: none Worsens with: none - Related Data Home Medications Medication Instructions Recorded Confirmed Last Taken Insulin Aspart Prot/Aspart(Nf) 15 units SQ BID 11/22/12 11/03/19 12/23/17 [NovoLOG Mix 70/30 VIAL] Amlodipine Besylate/Benazepril 1 each PO DAILY 11/03/19 11/03/19 Unknown [Amlodipine-Benazepril 10-40 mg] Previous Rx's Medication Instructions Recorded Last Taken Type Ibuprofen [Motrin 600 MG tab] 600 mg PO Q8H PRN #30 tablet 11/22/12 Unknown Rx traMADoL [Ultram 50 MG tab] 50 mg PO Q8HR PRN #6 tablet 10/21/19 Unknown Rx Pantoprazole [Protonix] 40 mg PO QDAY #30 tablet 11/04/19 Unknown Rx Gabapentin 300 mg PO BID PRN #20 capsule 12/10/19 Unknown Rx Naproxen 500 mg PO BID PRN #15 tablet 12/10/19 Unknown Rx Allergies Allergy/AdvReac Type Severity Reaction Status Date / Time No Known Allergies Allergy Verified 02/22/19 17:08 ED Review of Systems ROS: Stated complaint: PAIN PILL ADDICTION Other details as noted in HPI Constitutional: denies: fever Eyes: denies: eye discharge ENT: denies: epistaxis Respiratory: cough Cardiovascular: denies: chest pain Gastrointestinal: denies: abdominal pain, hematemesis, melena, hematochezia Genitourinary: denies: dysuria, abnormal menses Musculoskeletal: denies: back pain Neurological: weakness ED Past Medical Hx - Past Medical History Previous Medical History?: Yes Hx Hypertension: Yes Hx Diabetes: Yes Hx HIV: No Additional medical history: Shingles, Sarcadosis, neuropathy - Surgical History Past Surgical History?: Yes Additional Surgical History: Back Surgery, c section - Social History Smoking Status: Never Smoker - Medications Home Medications: Home Medications Medication Instructions Recorded Confirmed Last Taken Type Ibuprofen [Motrin 600 MG tab] 600 mg PO Q8H PRN #30 tablet 11/22/12 11/03/19 Unknown Rx Insulin Aspart Prot/Aspart(Nf) 15 units SQ BID 11/22/12 11/03/19 12/23/17 History [NovoLOG Mix 70/30 VIAL] traMADoL [Ultram 50 MG tab] 50 mg PO Q8HR PRN #6 tablet 10/21/19 11/03/19 Unknown Rx Amlodipine Besylate/Benazepril 1 each PO DAILY 11/03/19 11/03/19 Unknown History [Amlodipine-Benazepril 10-40 mg] Pantoprazole [Protonix] 40 mg PO QDAY #30 tablet 11/04/19 Unknown Rx Gabapentin 300 mg PO BID PRN #20 capsule 12/10/19 Unknown Rx Naproxen 500 mg PO BID PRN #15 tablet 12/10/19 Unknown Rx ED Physical Exam - General Limitations: No Limitations General appearance: alert, in no apparent distress - Head Head exam: Present: atraumatic, normocephalic - Eye Eye exam: Present: normal appearance, EOMI. Absent: nystagmus - ENT ENT exam: Present: normal exam, normal orophraynx, mucous membranes moist, normal external ear exam - Neck Neck exam: Present: normal inspection, full ROM. Absent: tenderness, meningismus - Respiratory Respiratory exam: Present: normal lung sounds bilaterally. Absent: respiratory distress, wheezes, rales, rhonchi, stridor, decreased breath sounds - Cardiovascular Cardiovascular Exam: Present: regular rate, normal rhythm, normal heart sounds. Absent: bradycardia, tachycardia, irregular rhythm, systolic murmur, diastolic murmur, rubs, gallop - GI/Abdominal GI/Abdominal exam: Present: soft, normal bowel sounds. Absent: distended, tenderness, guarding, rebound, rigid, pulsatile mass - Extremities Exam Extremities exam: Present: normal inspection, full ROM, other (2+ pulses noted in the bilateral upper and lower extremities. There is no palpable cord. negative Homans sign. Muscular compartments are soft. The pelvis is stable.). Absent: pedal edema, calf tenderness - Back Exam Back exam: Present: normal inspection, full ROM. Absent: tenderness, CVA tenderness (R), CVA tenderness (L), paraspinal tenderness, vertebral tenderness - Neurological Exam Neurological exam: Present: alert, oriented X3, normal gait, other (No facial droop. Tongue midline. Extraocular movements intact bilaterally. Facial sensation intact to light touch in V1, V2, V3 distribution bilaterally. 5 and a 5 strength in 4 extremities. Sensation intact to light touch in 4 extr emities.). Absent: motor sensory deficit - Psychiatric Psychiatric exam: Present: normal affect, normal mood. Absent: homicidal ideation, suicidal ideation - Skin Skin exam: Present: warm, dry, intact, normal color. Absent: rash ED Course Vital Signs 12/23/19 12/23/19 16:03 23:59 Temperature 99.8 F H 97.8 F Pulse Rate 112 H 88 Respiratory 18 16 Rate Blood Pressure 117/92 Blood Pressure 147/99 [Left] O2 Sat by Pulse 100 100 Oximetry ED Medical Decision Making - Lab Data Result diagrams: 12/23/19 16:11 12/23/19 16:11 Vital Signs 12/23/19 12/23/19 16:03 23:59 Temperature 99.8 F H 97.8 F Pulse Rate 112 H 88 Respiratory 18 16 Rate Blood Pressure 117/92 Blood Pressure 147/99 [Left] O2 Sat by Pulse 100 100 Oximetry Lab Results 12/23/19 12/23/19 Range/Units 16:11 16:11 WBC 9.8 (4.5-11.0) K/mm3 RBC 3.96 (3.65-5.03) M/mm3 Hgb 10.2 (10.1-14.3) gm/dl Hct 30.7 (30.3-42.9) % MCV 78 L (79-97) fl MCH 26 L (28-32) pg MCHC 33 (30-34) % RDW 22.0 H (13.2-15.2) % Plt Count 247 (140-440) K/mm3 Lymph % (Auto) 9.9 L (13.4-35.0) % [place] % (Auto) 6.8 (0.0-7.3) % Eos % (Auto) 0.1 (0.0-4.3) % Baso % (Auto) 0.2 (0.0-1.8) % Lymph # (Auto) 1.0 L (1.2-5.4) K/mm3 [place] # (Auto) 0.7 (0.0-0.8) K/mm3 Eos # (Auto) 0.0 (0.0-0.4) K/mm3 Baso # (Auto) 0.0 (0.0-0.1) K/mm3 Seg Neutrophils % 83.0 H (40.0-70.0) % Seg Neutrophils # 8.1 H (1.8-7.7) K/mm3 Sodium 139 (137-145) mmol/L Potassium 3.9 (3.6-5.0) mmol/L Chloride 99.1 (98-107) mmol/L Carbon Dioxide 23 (22-30) mmol/L Anion Gap 21 mmol/L BUN 25 H (7-17) mg/dL Creatinine 1.2 (0.6-1.2) mg/dL Estimated GFR 55 ml/min BUN/Creatinine Ratio 21 % Glucose 195 H (65-100) mg/dL Calcium 9.3 (8.4-10.2) mg/dL Total Bilirubin 0.30 (0.1-1.2) mg/dL AST 12 (5-40) units/L ALT < 5 L (7-56) units/L Alkaline Phosphatase 77 (35-129) units/L Total Protein 8.5 H (6.3-8.2) g/dL Albumin 4.4 (3.9-5) g/dL Albumin/Globulin Ratio 1.1 % - EKG Data 12/24/19 00:32 EKG #2 shows a sinus rhythm, 86 bpm, normal axis, normal intervals, borderline high left ventricular voltage/left ventricular hypertrophy, EKG abnormal, EKG is not a STEMI. EKG #1 unchanged, with the exception of sinus tachycardia. - Radiology Data Radiology results: report reviewed, image reviewed Print Report Referring Physician: AUSTIN LARA Patient Name: FELIPA ORONA Date of : 1955 Sex: Female Report Date: 2019-12-23 Report Status: Finalized Findings [facility] [address] [place] [address] XRay Report Signed Patient: FELIPA ORONA MR#: [id number] : 1955 Acct:[id number] Age/Sex: 64 / F ADM Date: 12/23/19 Loc: ED Attending Dr: Ordering Physician: AUSTIN LARA Date of Service: 12/23/19 Procedure(s): XR chest 1V ap Accession Number(s): [id number] cc: AUSTIN LARA Fluoro Time In Minutes: CHEST 1 VIEW 12/23/2019 3:42 PM INDICATION / CLINICAL INFORMATION: failure to thrive. COMPARISON: 11/03/19 FINDINGS: SUPPORT DEVICES: None. HEART / MEDIASTINUM: No significant abnormality. LUNGS / PLEURA: No significant pulmonary or pleural abnormality. No pneumothorax. ADDITIONAL FINDINGS: No significant additional findings. IMPRESSION: 1. No acute findings. No change. Signer Name: Rose Wilkes MD Signed: 12/23/2019 4:46 PM Workstation Name: [id number] Transcribed By: DT Dictated By: Duc Wilkes MD Electronically Authenticated By: Duc Wilkes MD Signed Date/Time: 12/23/191645 DD/ 44 - Medical Decision Making Differential diagnosis, including but not limited to: Dehydration, malnutrition, general medical exam/evaluation, dysthymia Assessment and plan: 64-year-old female, who is afebrile with reassuring vital signs, with resolved tachycardia, with a physical exam suggesting mild to moderate malnutrition and dehydration. However, she is tolerating liquid feeds, walks with a steady gait, presents as alert, oriented, clinically sober, indicates that she does not want to overdose on anything, and indicates that she does not feel like she has an addiction problem. This patient does not meet criteria for 1013 hold or involuntary hold. She presents as alert, oriented, sober, and lucid, and is not presenting in an acute psychiatric crisis that would make criteria for hospitalization/1013. Medically speaking, she is mildly dehydrated, and and appears to be malnourished, however, albumin essentially within normal limits, and she is tolerating oral feeds. Patient encouraged to eat vigorously, and drink adequate fluids vigorously. She does not meet criteria for inpatient hospitalization. She will need to follow-up with her outpatient primary care doctor Critical care attestation.: If time is entered above; I have spent that time in minutes in the direct care of this critically ill patient, excluding procedure time. ED Disposition Clinical Impression: Dehydration, General medical exam Disposition: - TO HOME OR SELFCARE Is pt being admited?: No Does the pt Need Aspirin: No Condition: Good Additional Instructions: We recommend that the patient eat at least 4-6 meals every day indefinitely. P lease consume at least 4 to 5 cups of water per day indefinitely. Please follow-up with your primary care doctor or mental health specialist for weight loss, potential depression within the next week. Please return to the emergency room right away with new pain, worsening pain, migration of pain, projectile vomiting, change in mental status, confusion, inability to tolerate liquid feeds, new, worsened or different symptoms not present on the initial emergency room evaluation. Referrals: MARTIN ROSAS MD [Staff Physician] - [facility]
[2019-12-23] MEDS ORDERED: ACETAMINOPHEN 325 MG TAB PO ONE (23:55)
[2019-12-23 23:59] VITALS: BP 147/99
[2019-12-24] MEDS ORDERED: IBUPROFEN 200 MG TAB PO ONE (00:35)
== END 2019-12-24 01:10 | disposition home or self-care (01) ==
LOC: ED 15:46
DX: E86.0 Dehydration (principal); I10 Essential (primary) hypertension; E11.9 Type 2 diabetes mellitus without complications; Z79.899 Other long term (current) drug therapy; Z98.890 Other specified postprocedural states; Z00.01 Encounter for general adult medical examination with abnormal findings
CPT/HCPCS: 36415; 71045; 80053; 85025; 93005

== ENCOUNTER 2020-04-07 10:51 | Emergency (ER) | payer MEDICARE ==
--- NOTE | 2020-04-07 11:25 | Event Note ---
ED Screening Note ED Screening Note: Patient is a 64-year-old female presents emergency room with complaints of right flank pain that began yesterday. She states that it began worse this morning. She states that she also has a mild cough and mild shortness of breath. She states that she does have discomfort with taking a deep breath. She denies any nausea, vomiting, diarrhea, fever, dysuria, urinary frequency, dark urine/odor to the urine. Past medical history of hypertension and diabetes. No allergies to medications. This initial assessment/diagnostic orders/clinical plan/treatment(s) is/are subject to change based on patients health status, clinical progression and re- assessment by fellow clinical providers in the ED. Further treatment and workup at subsequent clinical providers discretion. Patient/guardian urged not to elope from the ED as their condition may be serious if not clinically assessed and managed. Initial orders include: Labs, x-ray, EKG
[2020-04-07 11:52] LABS: Basophils # (Auto) 0.1 K/mm3 (0.0-0.1); Basophils % (Auto) 0.8 % (0.0-1.8); Eosinophils # (Auto) 0.1 K/mm3 (0.0-0.4); Eosinophils % (Auto) 1.5 % (0.0-4.3); Hematocrit 28.1 % (30.3-42.9); Lymphocytes # (Auto) 1.2 K/mm3 (1.2-5.4); Lymphocytes % (Auto) 18.5 % (13.4-35.0); Mean Corpuscular HGB Conc 32 % (30-34); Mean Corpuscular Volume 78 fl (79-97); Monocytes # (Auto) 0.5 K/mm3 (0.0-0.8); Monocytes % (Auto) 7.7 % (0.0-7.3); Platelet Count 301 K/mm3 (140-440); Red Blood Count 3.61 M/mm3 (3.65-5.03); Red Cell Distribution Width 18.4 % (13.2-15.2)
[2020-04-07 12:18] LABS: Alanine Aminotransferase 14 units/L (7-56); BUN/Creatinine Ratio 30; Blood Urea Nitrogen 33 mg/dL (7-17); Calcium 9.1 mg/dL (8.4-10.2); Hemolysis Index 0
--- NOTE | 2020-04-07 12:27 | XRay Report ---
CHEST 2 VIEWS INDICATION / CLINICAL INFORMATION: flank pain, pleuritic CP. COMPARISON: 12/23/2019 FINDINGS: SUPPORT DEVICES: None. HEART / MEDIASTINUM: No significant abnormality. LUNGS / PLEURA: No significant pulmonary or pleural abnormality. No pneumothorax. ADDITIONAL FINDINGS: No significant additional findings. IMPRESSION: 1. No acute findings. Signer Name: Denny Borjas MD Signed: 04/07/2020 12:23 PM Workstation Name: [email or web address]
[2020-04-07 12:47] LABS: Bacteria,Urine 1+ /HPF (Negative); Bilirubin,Urine NEG (Negative); Blood,Urine SM (Negative); Color,Urine Yellow (Yellow); Urobilinogen,Urine < 2.0 mg/dL (<2.0)
[2020-04-07] MEDS ORDERED: KETOROLAC 30 MG/1 ML INJ IV ONE (16:30)
--- NOTE | 2020-04-07 16:48 | Emergency Department Report ---
ED Abdominal Pain HPI - General Chief Complaint: Abdominal Pain Stated Complaint: RT KIDNEY PAIN Time Seen by Provider: 04/07/20 11:09 Source: patient, EMS Mode of arrival: Wheelchair Limitations: No Limitations - History of Present Illness Initial Comments: 64-year-old female presents to ED with abdominal pain. Patient states "my kidney hurts," and points to her right groin/ right lower quadrant. Patient reports pain started on yesterday. Pain is worse with movement. She denies any back pain, fever, cough, shortness of breath, nausea, vomiting, diarrhea, dysuria, hematuria, urinary frequency. Patient states she has never had this pain previously. MD Complaint: abdominal pain -: days(s) (1) Location: RLQ Radiation: none Migration to: no migration Severity: moderate Quality: sharp Consistency: constant Improves With: nothing Worsens With: movement Associated Symptoms: denies: nausea, vomiting, diarrhea, fever, dysuria, hematuria - Related Data Home Medications Medication Instructions Recorded Confirmed Last Taken Insulin Aspart Prot/Aspart(Nf) 15 units SQ BID 11/22/12 11/03/19 12/23/17 [NovoLOG Mix 70/30 VIAL] Amlodipine Besylate/Benazepril 1 each PO DAILY 11/03/19 11/03/19 Unknown [Amlodipine-Benazepril 10-40 mg] Previous Rx's Medication Instructions Recorded Last Taken Type Ibuprofen [Motrin 600 MG tab] 600 mg PO Q8H PRN #30 tablet 11/22/12 Unknown Rx traMADoL [Ultram 50 MG tab] 50 mg PO Q8HR PRN #6 tablet 10/21/19 Unknown Rx Pantoprazole [Protonix] 40 mg PO QDAY #30 tablet 11/04/19 Unknown Rx Gabapentin 300 mg PO BID PRN #20 capsule 12/10/19 Unknown Rx Naproxen 500 mg PO BID PRN #15 tablet 12/10/19 Unknown Rx Docusate Sodium [Colace] 100 mg PO BID #60 capsule 04/07/20 Unknown Rx Naproxen [Naprosyn] 500 mg PO BID #20 tablet 04/07/20 Unknown Rx Allergies Allergy/AdvReac Type Severity Reaction Status Date / Time No Known Allergies Allergy Verified 04/07/20 11:10 ED Review of Systems ROS: Stated complaint: RT KIDNEY PAIN Other details as noted in HPI Comment: All other systems reviewed and negative Constitutional: denies: chills, fever Respiratory: denies: cough, shortness of breath Cardiovascular: denies: chest pain Gastrointestinal: abdominal pain. denies: nausea, vomiting, diarrhea Genitourinary: denies: dysuria, frequency, hematuria ED Past Medical Hx - Past Medical History Hx Hypertension: Yes Hx Diabetes: Yes Hx HIV: No Additional medical history: Shingles, Sarcadosis, neuropathy - Surgical History Additional Surgical History: Back Surgery, c section - Social History Smoking Status: Unknown if ever smoked Substance Use Type: None - Medications Home Medications: Home Medications Medication Instructions Recorded Confirmed Last Taken Type Ibuprofen [Motrin 600 MG tab] 600 mg PO Q8H PRN #30 tablet 11/22/12 11/03/19 Unknown Rx Insulin Aspart Prot/Aspart(Nf) 15 units SQ BID 11/22/12 11/03/19 12/23/17 History [NovoLOG Mix 70/30 VIAL] traMADoL [Ultram 50 MG tab] 50 mg PO Q8HR PRN #6 tablet 10/21/19 11/03/19 Unknown Rx Amlodipine Besylate/Benazepril 1 each PO DAILY 11/03/19 11/03/19 Unknown History [Amlodipine-Benazepril 10-40 mg] Pantoprazole [Protonix] 40 mg PO QDAY #30 tablet 11/04/19 Unknown Rx Gabapentin 300 mg PO BID PRN #20 capsule 12/10/19 Unknown Rx Naproxen 500 mg PO BID PRN #15 tablet 12/10/19 Unknown Rx Docusate Sodium [Colace] 100 mg PO BID #60 capsule 04/07/20 Unknown Rx Naproxen [Naprosyn] 500 mg PO BID #20 tablet 04/07/20 Unknown Rx ED Physical Exam - General Limitations: No Limitations General appearance: alert, in no apparent distress - Head Head exam: Present: atraumatic, normocephalic - Eye Eye exam: Present: normal appearance, EOMI - ENT ENT exam: Present: mucous membranes moist - Neck Neck exam: Present: normal inspection - Respiratory Respiratory exam: Present: normal lung sounds bilaterally. Absent: respiratory distress - Cardiovascular Cardiovascular Exam: Present: regular rate, normal rhythm - GI/Abdominal GI/Abdominal exam: Present: soft, tenderness (Right lower quadrant). Absent: distended - Extremities Exam Extremities exam: Present: normal inspection - Back Exam Back exam: Absent: CVA tenderness (R), CVA tenderness (L) - Neurological Exam Neurological exam: Present: alert, oriented X3 - Psychiatric Psychiatric exam: Present: normal affect, normal mood - Skin Skin exam: Present: warm, dry, intact, normal color ED Course Vital Signs 04/07/20 04/07/20 11:11 17:22 Temperature 98.9 F 98.5 F Pulse Rate 95 H 82 Respiratory 18 18 Rate Blood Pressure 188/102 Blood Pressure 175/77 [Left] O2 Sat by Pulse 100 100 Oximetry ED Medical Decision Making - Lab Data Result diagrams: 04/07/20 11:38 04/07/20 11:38 - EKG Data -: EKG Interpreted by Me EKG shows normal: sinus rhythm, axis, intervals, QRS complexes, ST-T waves Rate: normal - EKG Data Interpretation: no acute changes - Radiology Data Radiology results: report reviewed, image reviewed - Medical Decision Making 64-year-old female presents to ED with complaint of right lower quadrant pain. Labs unremarkable. CT scan was done that shows no acute findings except for some excess stool. Patient given IV Toradol and reports feeling much better at this time. Patient will be discharged home with prescriptions. Outpatient follow-up advised, return precautions given. - Differential Diagnosis Kidney stone, appendicitis, UTI Critical care attestation.: If time is entered above; I have spent that time in minutes in the direct care of this critically ill patient, excluding procedure time. ED Disposition Clinical Impression: Abdominal pain Disposition: DC-01 TO HOME OR SELFCARE Is pt being admited?: No Condition: Stable Instructions: Abdominal Pain, Adult, [id number], Abdominal Pain (ED) Prescriptions: Docusate Sodium [Colace] 100 mg PO BID #60 capsule Naproxen [Naprosyn] 500 mg PO BID #20 tablet Referrals: PRIMARY CARE [Primary Care Provider] - 3-5 Days [facility] [Provider Group] - 3-5 Days Time of Disposition: 17:37
[2020-04-07 17:22] VITALS: BP 175/77
--- NOTE | 2020-04-07 17:22 | Cat Scan Report ---
CT abdomen pelvis w con INDICATION: RLQ pain. COMPARISON: October 21, 2019 CT abdomen pelvis w con INDICATION: RLQ pain. COMPARISON: June 26, 2019 and October 21, 2019 TECHNIQUE: Abdominal and pelvic CT exam performed. All CT scans at this location are performed using CT dose reduction for ALARA by means of automated exposure control. FINDINGS: CT ABDOMEN and PELVIS: Lung Bases: No significant abnormality. Liver: No significant abnormality. Biliary: No significant abnormality. Spleen: A couple scattered splenic granulomas. Pancreas: No significant abnormality. Adrenals: No significant abnormality. Kidneys: Bilateral small hypoattenuating lesions, most likely represent cysts. Lymphatics: No lymphadenopathy. Vasculature: No significant abnormality. Bowel/Peritoneum: Resolution of prior seen inflammatory changes of the duodenum. Moderate quantity of stool in the rectum and colon. No dilation to suggest obstruction. Appendix is normal. Pelvis: No significant abnormality. Osseous Structures: No aggressive osseous lesion. Prior L5 and partial L4 laminectomies. Mild spondyl otic changes. Additional Findings: None IMPRESSION: 1. No significant abnormality. Moderate quantity of stool seen within the rectum and colon.Signer Nam e: Jadiel Acosta MD Signed: 04/07/2020 5:18 PM Workstation Name: [id number]
== END 2020-04-07 18:40 | disposition home or self-care (01) ==
LOC: ED 10:51
DX: R10.31 Right lower quadrant pain (principal); I10 Essential (primary) hypertension; E11.9 Type 2 diabetes mellitus without complications; Z98.890 Other specified postprocedural states; Z79.4 Long term (current) use of insulin; Z79.1 Long term (current) use of non-steroidal anti-inflammatories (NSAID); Z79.899 Other long term (current) drug therapy
CPT/HCPCS: 36415; 71046; 74177; 80053; 81001; 83880; 84484; 85025; 85379; 93005; 96374; 99285; J1885; Q9967

== ENCOUNTER 2020-06-26 13:27 | Emergency (ER) | payer MEDICARE ==
[2020-06-26 14:01] VITALS: BP 197/102
--- NOTE | 2020-06-26 15:22 | Emergency Department Report ---
Upper Extremity - HPI Chief Complaint: Fall Stated Complaint: FELL IN BATHROOM Time Seen by Provider: 06/26/20 15:12 Upper Extremity: Right Shoulder, Right Wrist Occurred When: 1 Day Mechanism: Fall Severity: moderate Symptoms: Yes Pain with Movement, No Deformity, No Limited Range of Movement, No Numbness, No Weakness, No Bruising/Ecchymosis, No Laceration or Abrasion Other History: 64-year-old female presents to the ER today with complaints of right shoulder and right wrist pain after fall last night. Patient states that she was about to sit down on the toilet bowl when she lost her balance and fell and struck her right shoulder and right wrist. She denies any head injury. She states she is not any blood thinners. ED Review of Systems ROS: Stated complaint: FELL IN BATHROOM Other details as noted in HPI Comment: All other systems reviewed and negative Constitutional: denies: chills, fever Eyes: denies: eye pain, eye discharge, vision change ENT: denies: ear pain, throat pain, dental pain, hearing loss, epistaxis, congestion Cardiovascular: denies: chest pain, palpitations, edema, syncope, paroxysmal nocturnal dyspnea Endocrine: no symptoms reported Gastrointestinal: denies: abdominal pain, nausea, vomiting, diarrhea, constipation, hematemesis, hematochezia Musculoskeletal: joint swelling, arthralgia. denies: back pain Skin: denies: rash, lesions, change in color, change in hair/nails, pruritus Neurological: denies: headache, weakness, numbness, paresthesias, confusion, abnormal gait, vertigo Psychiatric: denies: anxiety, depression, auditory hallucinations, visual hallucinations, homicidal thoughts, suicidal thoughts Hematological/Lymphatic: denies: easy bleeding, easy bruising ED Past Medical Hx - Past Medical History Previous Medical History?: Yes Hx Hypertension: Yes Hx Diabetes: Yes Hx HIV: No Additional medical history: Shingles, Sarcadosis, neuropathy - Surgical History Past Surgical History?: Yes Additional Surgical History: Back Surgery, c section - Social History Smoking Status: Unknown if ever smoked Substance Use Type: None - Medications Home Medications: Home Medications Medication Instructions Recorded Confirmed Last Taken Type Ibuprofen [Motrin 600 MG tab] 600 mg PO Q8H PRN #30 tablet 11/22/12 11/03/19 Unknown Rx Insulin Aspart Prot/Aspart(Nf) 15 units SQ BID 11/22/12 11/03/19 12/23/17 History [NovoLOG Mix 70/30 VIAL] traMADoL [Ultram 50 MG tab] 50 mg PO Q8HR PRN #6 tablet 10/21/19 11/03/19 Unknown Rx Amlodipine Besylate/Benazepril 1 each PO DAILY 11/03/19 11/03/19 Unknown History [Amlodipine-Benazepril 10-40 mg] Pantoprazole [Protonix] 40 mg PO QDAY #30 tablet 11/04/19 Unknown Rx Gabapentin 300 mg PO BID PRN #20 capsule 12/10/19 Unknown Rx Naproxen 500 mg PO BID PRN #15 tablet 12/10/19 Unknown Rx Docusate Sodium [Colace] 100 mg PO BID #60 capsule 04/07/20 Unknown Rx Naproxen [Naprosyn] 500 mg PO BID #20 tablet 04/07/20 Unknown Rx Acetaminophen [Acetaminophen 8 650 mg PO Q8HR PRN #30 tablet.er 06/26/20 Unknown Rx Hour] Diclofenac 1% [Diclofenac 1% 2 gm TP QID PRN #1 tube 06/26/20 Unknown Rx topical gel] Upper Extremity Exam - Exam General: Vital signs noted. No distress. Alert and acting appropriately. Arm Exam: No Arm/Humerus Tenderness, No Arm Deformity Elbow: Yes Normal Range of Motion in Elbow, No Elbow Tenderness, No Elbow Deformity Forearm: No Forearm Tenderness, No Forearm Deformity, No Pain with Pronation, No Pain with Supination Wrist: Yes Wrist Tenderness (Tenderness to palpation to the volar aspect of the right wrist.), No Normal ROM in Wrist (Range of motion of the right wrist mildly painful.), No Wrist Deformity, No Snuffbox Tenderness, No Pain with Axial Thumb Compression Hand: Yes Normal ROM in Digit(s), No Hand Tenderness, No Hand Deformity, No Digit Tenderness, No Digit(s) Deformity, No Tendon Dysfunction CMS Exam: Yes Normal Distal Pulses, Yes Normal Capillary Refill, Yes Normal Distal Sensation, No Broken Skin ED Course Vital Signs 06/26/20 14:01 Temperature 98 F Pulse Rate 78 Respiratory 16 Rate Blood Pressure 197/102 [Right] O2 Sat by Pulse 98 Oximetry ED Medical Decision Making - Radiology Data Radiology results: report reviewed Patient: FELIPA ORONA MR#: [id number] : 1955 Acct:[id number] Age/Sex: 64 / F ADM Date: 06/26/20 Loc: ED Attending Dr: Ordering Physician: DOROTHEA SMITH Date of Service: 06/26/20 Procedure(s): XR shoulder 2+V RT Accession Number(s): [id number] cc: DOROTHEA SMITH Fluoro Time In Minutes: Right shoulder 3 views INDICATION: Shoulder pain FINDINGS: No acute fracture dislocation. Glenohumeral and AC degenerative change. No soft tissue abnormality. Signer Name: Denny Borjas MD Signed: 06/26/2020 3:49 PM Workstation Name: [id number] Transcribed By: DANITZA Dictated By: ELAYNE BORJAS MD Electronically Authenticated By: ELAYNE BORJAS MD Signed Date/Time: 06/26/201548 DD/ 48 TD/TT: Patient: FELIPA ORONA MR#: [id number] : 1955 Acct:[id number] Age/Sex: 64 / F ADM Date: 06/26/20 Loc: ED Attending Dr: Ordering Physician: DOROTHEA SMITH Date of Service: 06/26/20 Procedure(s): XR wrist 3+V RT Accession Number(s): [id number] cc: DOROTHEA SMITH Fluoro Time In Minutes: Right wrist 3 views INDICATION: Fall FINDINGS: Diffuse osteopenia. There may be a cystic change within the scaphoid waist however no acute fractures seen. Mild soft tissue swelling throughout the wrist. Carpal bone alignment appears normal. IMPRESSION: 1. Diffuse soft tissue swelling in the wrist. 2. No acute fracture is seen. Cyst suggested within the scaphoid waist. Signer Name: Denny Borjas MD Signed: 06/26/2020 3:52 PM Workstation Name: [id number] Transcribed By: DANITZA Dictated By: ELAYNE BORJAS MD Electronically Authenticated By: ELAYNE BORJAS MD Signed Date/Time: 06/26/201551 DD/ 50 TD/TT: - Medical Decision Making Xrays show nothing acute. Will treat for possible contusion/strain. Patient is neurologically intact with normal gait in ED. Discussed imaging results, suspected dx and tx plan with patient. Recommend follow up with Ortho in 1 week if symptoms persist. Patient stable at time of d/c. Critical care attestation.: If time is entered above; I have spent that time in minutes in the direct care of this critically ill patient, excluding procedure time. ED Disposition Clinical Impression: Shoulder contusion, Wrist sprain Disposition: TO HOME OR SELFCARE Is pt being admited?: No Does the pt Need Aspirin: No Condition: Stable Instructions: Contusion, Wrist Sprain, Adult Additional Instructions: Take the tylenol as prescribed and use the voltaren gel as prescribed. Follow up with [facility] in 1 week if symptoms persist. REturn to ED if worse Prescriptions: Acetaminophen [Acetaminophen 8 Hour] 650 mg PO Q8HR PRN #30 tablet.er PRN Reason: Pain Diclofenac 1% [Diclofenac 1% topical gel] 2 gm TP QID PRN #1 tube PRN Reason: Pain Referrals: EDGARD VILLAFANA MD [Staff Physician] - 3-5 Days Time of Disposition: 16:13
--- NOTE | 2020-06-26 15:54 | XRay Report ---
Right shoulder 3 views INDICATION: Shoulder pain FINDINGS: No acute fracture dislocation. Glenohumeral and AC degenerative change. No soft tissue abno rmality. Signer Name: Denny Borjas MD Signed: 06/26/2020 3:49 PM Workstation Name: [id number]
--- NOTE | 2020-06-26 15:56 | XRay Report ---
Right wrist 3 views INDICATION: Fall FINDINGS: Diffuse osteopenia. There may be a cystic change within the scaphoid waist however no acute fractures seen. Mild soft tissue swelling throughout the wrist. Carpal bone alignment appears normal . IMPRESSION: 1. Diffuse soft tissue swelling in the wrist. 2. No acute fracture is seen. Cyst suggested within the scaphoid waist. Signer Name: Denny Borjas MD Signed: 06/26/2020 3:52 PM Workstation Name: [id number]
== END 2020-06-26 16:30 | disposition home or self-care (01) ==
LOC: ED 13:27
DX: S63.501A Unspecified sprain of right wrist, initial encounter (principal); S40.011A Contusion of right shoulder, initial encounter; I10 Essential (primary) hypertension; E11.9 Type 2 diabetes mellitus without complications; Z98.890 Other specified postprocedural states; Z79.1 Long term (current) use of non-steroidal anti-inflammatories (NSAID); Z79.2 Long term (current) use of antibiotics; Z79.899 Other long term (current) drug therapy; W19.XXXA Unspecified fall, initial encounter; Y93.89 Activity, other specified; Y92.89 Other specified places as the place of occurrence of the external cause; Y99.8 Other external cause status

== ENCOUNTER 2020-07-15 11:49 | Observation (INO) | payer MEDICARE ==
[2020-07-15 14:13] LABS: Basophils # (Auto) 0.1 K/mm3 (0.0-0.1); Basophils % (Auto) 1.4 % (0.0-1.8); Eosinophils % (Auto) 1.1 % (0.0-4.3); Hematocrit 25.1 % (30.3-42.9); Hemoglobin 8.2 gm/dl (10.1-14.3); Lymphocytes % (Auto) 22.1 % (13.4-35.0); Mean Corpuscular HGB Conc 33 % (30-34); Mean Corpuscular Volume 78 fl (79-97); Monocytes # (Auto) 0.3 K/mm3 (0.0-0.8); Monocytes % (Auto) 6.4 % (0.0-7.3); Platelet Count 320 K/mm3 (140-440); Red Blood Count 3.22 M/mm3 (3.65-5.03)
[2020-07-15 14:26] LABS: Red Cell Distribution Width 21.4 % (13.2-15.2)
[2020-07-15 14:35] LABS: Alanine Aminotransferase 13 units/L (7-56); Albumin 3.5 g/dL (3.9-5); BUN/Creatinine Ratio 21; Blood Urea Nitrogen 27 mg/dL (7-17); Calcium 8.6 mg/dL (8.4-10.2); Hemolysis Index 5
[2020-07-15] MEDS ORDERED: SODIUM CHLORIDE 0.9% 1000 ML 1,000 ML IV ONE (20:35)
[2020-07-15] MEDS ORDERED: ONDANSETRON 4 MG/2 ML INJ IV ONE (20:35)
--- NOTE | 2020-07-15 20:36 | Emergency Department Report ---
ED N/V/D HPI - General Chief complaint: Nausea/Vomiting/Diarrhea Stated complaint: VOMITING PUI?: No Time Seen by Provider: 07/15/20 16:46 Source: patient Mode of arrival: Ambulatory Limitations: No Limitations - History of Present Illness Initial comments: Patient is a 64-year-old female that presents emergency room with complaints of nausea vomiting. Patient states the symptoms started 4 days ago. Patient dates his symptoms are worsening. Patient denies blood in her vomitus. Patient denies diarrhea. Patient chest pain is controlled. Patient states he is generalized abdominal pain. Patient states the abdominal pain is a stabbing pain. Patient denies recent travel. Patient denies recent international travel. P atient denies exposure to the novel coronavirus. Patient denies sick contacts. Patient denies fever and chills. Patient denies cough. Patient denies diarrhea. Patient denies coming in contact with anybody with symptoms of the novel coronavirus. MD complaint: nausea, vomiting, abdominal pain -: Sudden Description of Vomiting: watery Associated Abdominal Pain: Yes Location: diffuse Radiation: none Severity: severe Pain Scale: 10 Quality: stabbing Consistency: constant Improves with: rest Worsens with: vomiting, movement Associated Symptoms: loss of appetite, malaise, nausea/vomiting. denies: myalgias, chest pain, cough, diaphoresis, fever/chills, headaches, rash, dysuria, shortness of breath, syncope, weakness - Related Data Home Medications Medication Instructions Recorded Confirmed Last Taken Insulin Aspart Prot/Aspart(Nf) 15 units SQ BID 11/22/12 11/03/19 12/23/17 [NovoLOG Mix 70/30 VIAL] Amlodipine Besylate/Benazepril 1 each PO DAILY 11/03/19 11/03/19 Unknown [Amlodipine-Benazepril 10-40 mg] Previous Rx's Medication Instructions Recorded Last Taken Type Ibuprofen [Motrin 600 MG tab] 600 mg PO Q8H PRN #30 tablet 11/22/12 Unknown Rx traMADoL [Ultram 50 MG tab] 50 mg PO Q8HR PRN #6 tablet 10/21/19 Unknown Rx Pantoprazole [Protonix] 40 mg PO QDAY #30 tablet 11/04/19 Unknown Rx Gabapentin 300 mg PO BID PRN #20 capsule 12/10/19 Unknown Rx Naproxen 500 mg PO BID PRN #15 tablet 12/10/19 Unknown Rx Docusate Sodium [Colace] 100 mg PO BID #60 capsule 04/07/20 Unknown Rx Naproxen [Naprosyn] 500 mg PO BID #20 tablet 04/07/20 Unknown Rx Acetaminophen [Acetaminophen 8 650 mg PO Q8HR PRN #30 tablet.er 06/26/20 Unknown Rx Hour] Diclofenac 1% [Diclofenac 1% 2 gm TP QID PRN #1 tube 06/26/20 Unknown Rx topical gel] Allergies Allergy/AdvReac Type Severity Reaction Status Date / Time No Known Allergies Allergy Verified 04/07/20 11:10 ED Review of Systems ROS: Stated complaint: VOMITING Other details as noted in HPI Constitutional: denies: chills, fever Eyes: denies: eye pain, eye discharge, vision change ENT: denies: ear pain, throat pain Respiratory: denies: cough, shortness of breath, wheezing Cardiovascular: denies: chest pain, palpitations Endocrine: no symptoms reported Gastrointestinal: as per HPI, abdominal pain, nausea, vomiting. denies: diarrhea, constipation, hematemesis, melena, hematochezia Genitourinary: denies: urgency, dysuria, discharge Musculoskeletal: denies: back pain, joint swelling, arthralgia Skin: denies: rash, lesions Neurological: denies: headache, weakness, paresthesias Psychiatric: denies: anxiety, depression Hematological/Lymphatic: denies: easy bleeding, easy bruising ED Past Medical Hx - Past Medical History Previous Medical History?: Yes Hx Hypertension: Yes Hx Diabetes: Yes Hx HIV: No Additional medical history: Shingles, Sarcadosis, neuropathy - Surgical History Past Surgical History?: Yes Additional Surgical History: Back Surgery, c section - Family History Family history: no significant - Social History Smoking Status: Never Smoker Substance Use Type: None - Medications Home Medications: Home Medications Medication Instructions Recorded Confirmed Last Taken Type Ibuprofen [Motrin 600 MG tab] 600 mg PO Q8H PRN #30 tablet 11/22/12 11/03/19 Unknown Rx Insulin Aspart Prot/Aspart(Nf) 15 units SQ BID 11/22/12 11/03/19 12/23/17 History [NovoLOG Mix 70/30 VIAL] traMADoL [Ultram 50 MG tab] 50 mg PO Q8HR PRN #6 tablet 10/21/19 11/03/19 Unknown Rx Amlodipine Besylate/Benazepril 1 each PO DAILY 11/03/19 11/03/19 Unknown History [Amlodipine-Benazepril 10-40 mg] Pantoprazole [Protonix] 40 mg PO QDAY #30 tablet 11/04/19 Unknown Rx Gabapentin 300 mg PO BID PRN #20 capsule 12/10/19 Unknown Rx Naproxen 500 mg PO BID PRN #15 tablet 12/10/19 Unknown Rx Docusate Sodium [Colace] 100 mg PO BID #60 capsule 04/07/20 Unknown Rx Naproxen [Naprosyn] 500 mg PO BID #20 tablet 04/07/20 Unknown Rx Acetaminophen [Acetaminophen 8 650 mg PO Q8HR PRN #30 tablet.er 06/26/20 Unk nown Rx Hour] Diclofenac 1% [Diclofenac 1% 2 gm TP QID PRN #1 tube 06/26/20 Unknown Rx topical gel] ED Physical Exam - General Limitations: No Limitations General appearance: alert, in no apparent distress - Head Head exam: Present: atraumatic, normocephalic - Eye Eye exam: Present: normal appearance - ENT ENT exam: Present: mucous membranes dry - Neck Neck exam: Present: normal inspection - Respiratory Respiratory exam: Present: normal lung sounds bilaterally. Absent: respiratory distress - Cardiovascular Cardiovascular Exam: Present: regular rate, normal rhythm. Absent: systolic murmur, diastolic murmur, rubs, gallop - GI/Abdominal GI/Abdominal exam: Present: soft, tenderness, normal bowel sounds - Rectal Rectal exam: Present: normal rectal tone, heme (+) stool, fecal impaction, other (Charge nurseDaniel in the room during the exam). Absent: hemorrhoids, mass, tenderness - Extremities Exam Extremities exam: Present: normal inspection - Back Exam Back exam: Present: normal inspection - Neurological Exam Neurological exam: Present: alert, oriented X3 - Psychiatric Psychiatric exam: Present: normal affect, normal mood - Skin Skin exam: Present: warm, dry, intact, normal color. Absent: rash ED Course Vital Signs 07/15/20 12:24 Temperature 98.4 F Pulse Rate 88 Respiratory 18 Rate Blood Pressure 165/87 [Right] O2 Sat by Pulse 97 Oximetry - Reevaluation(s) Reevaluation #1: Rectal exam done and guaiac was positive. Nurse Sanchez in the room during the ent bo exam. 07/15/20 22:30 Reevaluation #2: I discussed all results with patient. I discussed plan of care with patient. Patient agrees with plan of care and admission. Patient to be admitted to the hospitalist service. 07/15/20 23:21 - Consultations Consultation #1: I discussed case with GI, Dr. BELL. Dr. BELL recommends admission and he will see the patient in the morning and a PPI and n.p.o. after midnight. 07/15/20 23:10 Consultation #2: Hospitalist consulted for admission. Hospitalist to admit patient. 07/15/20 23:21 ED Medical Decision Making - Lab Data Result diagrams: 07/15/20 13:54 07/15/20 13:54 - Radiology Data Radiology results: report reviewed CT ABDOMEN AND PELVIS WITH CONTRAST INDICATION / CLINICAL INFORMATION: Pt complains of abdominal pain with nausea and vomiting. TECHNIQUE: Axial CT images were obtained through the abdomen and pelvis after IV contrast. All CT scans at this location are performed using CT dose reduction for ALARA by means of automated exposure control. COMPARISON: 04/07/2020 FINDINGS: LOWER CHEST: No significant abnormality. LIVER: No significant abnormality. GALLBLADDER: No significant abnormality. BILE DUCTS: Mild distention of the common bile duct measures 6 mm. PANCREAS: Pancreatic duct measures upper limits of normal at 3 mm. No focal pancreatic lesion. SPLEEN: Multiple splenic granulomas are unchanged. ADRENALS: No significant abnormality. RIGHT KIDNEY / URETER: Multiple simple renal cysts are noted on the right. No calcified stones or hydronephrosis. LEFT KIDNEY / URETER: Multiple simple renal cysts are noted on the left. The largest measuring 2.8 cm in the superior pole. No calcified stones or hydronephrosis. STOMACH / SMALL BOWEL: Thickening of the gastric wall likely secondary to include distention. No mechanical bowel obstruction. COLON: Abundant stool burden again noted in the colon, minimally improved since prior exam. APPENDIX: No significant abnormality. PERITONEUM: No free fluid. No free air. No fluid collection. LYMPH NODES: No significant adenopathy. AORTA / ARTERIES: Mild atherosclerotic calcification without acute abnormality. IVC / VEINS: No significant abnormality. URINARY BLADDER: No significant abnormality. REPRODUCTIVE ORGANS: No significant abnormality. ADDITIONAL FINDINGS: None. SKELETAL SYSTEM: Multilevel degenerative changes are noted of the spine. No aggressive osseous lesions. Prior laminectomies at L4 and L5 are again noted. IMPRESSION: 1. Abundant colonic stool burden is again noted and minimally improved when compared to prior exam 04/07/2020. 2. No acute inflammatory process is noted of the abdomen or pelvis. 3. Additional findings are similar to prior exam and described in detail above. - Medical Decision Making Patient is a 64-year-old female who presents emergency room with complaints of abdominal pain, nausea, vomiting. Patient had labs done which showed microcytic anemia and renal insufficiency. Patient had a CT scan of the abdomen which was negative for acute findings except for constipation. Patient then had a rectal exam done which showed brown stool but guaiac positive. I then discussed the case with GI and GI recommend admission, n.p.o. after midnight and a PPI. Patient admitted to the hospital service for further evaluation treatment. Consult placed for GI and GI recommendations were ordered. Critical care time documented due to the multiple reassessments, prolonged time at the bedside, interpretation of diagnostics and labs and discussion with consultants.. - Differential Diagnosis Constipation, abdominal pain, anemia, intractable n/v, gastroenteritis Critical Care Time: Yes Critical care time in (mins) excluding proc time.: 35 Critical care attestation.: If time is entered above; I have spent that time in minutes in the direct care of this critically ill patient, excluding procedure time. Critical Care Time: 35 minutes ED Disposition Clinical Impression: Acute anemia, Dehydration, Acute renal insufficiency Nausea & vomiting Qualifiers: Vomiting type: unspecified Vomiting Intractability: intractable Qualified Code(s): R11.2 - Nausea with vomiting, unspecified Abdominal pain Qualifiers: Abdominal location: generalized Qualified Code(s): R10.84 - Generalized abdominal pain Constipation Qualifiers: Constipation type: unspecified constipation type Qualified Code(s): K59.00 - Constipation, unspecified Anemia Qualifiers: Anemia type: unspecified type Qualified Code(s): D64.9 - Anemia, unspecified Disposition: 09 OP ADMIT IP TO THIS HOSP Is pt being admited?: Yes Does the pt Need Aspirin: No Condition: Critical Time of Disposition: 23:02
[2020-07-15] MEDS ORDERED: HYDROmorphone 1 MG/1 ML INJ IV ONE (21:09)
[2020-07-15] MEDS ORDERED: HYDROmorphone 1 MG/1 ML INJ ONE (21:10)
--- NOTE | 2020-07-15 22:41 | Cat Scan Report ---
CT ABDOMEN AND PELVIS WITH CONTRAST INDICATION / CLINICAL INFORMATION: Pt complains of abdominal pain with nausea and vomiting. TECHNIQUE: Axial CT images were obtained through the abdomen and pelvis after IV contrast. All CT scans at this location are performed using CT dose reduction for ALARA by means of automated exposure control. COMPARISON: 04/07/2020 FINDINGS: LOWER CHEST: No significant abnormality. LIVER: No significant abnormality. GALLBLADDER: No significant abnormality. BILE DUCTS: Mild distention of the common bile duct measures 6 mm. PANCREAS: Pancreatic duct measures upper limits of normal at 3 mm. No focal pancreatic lesion. SPLEEN: Multiple splenic granulomas are unchanged. ADRENALS: No significant abnormality. RIGHT KIDNEY / URETER: Multiple simple renal cysts are noted on the right. No calcified stones or hyd ronephrosis. LEFT KIDNEY / URETER: Multiple simple renal cysts are noted on the left. The largest measuring 2.8 cm in the superior pole. No calcified stones or hydronephrosis. STOMACH / SMALL BOWEL: Thickening of the gastric wall likely secondary to include distention. No mech anical bowel obstruction. COLON: Abundant stool burden again noted in the colon, minimally improved since prior exam. APPENDIX: No significant abnormality. PERITONEUM: No free fluid. No free air. No fluid collection. LYMPH NODES: No significant adenopathy. AORTA / ARTERIES: Mild atherosclerotic calcification without acute abnormality. IVC / VEINS: No significant abnormality. URINARY BLADDER: No significant abnormality. REPRODUCTIVE ORGANS: No significant abnormality. ADDITIONAL FINDINGS: None. SKELETAL SYSTEM: Multilevel degenerative changes are noted of the spine. No aggressive osseous lesion s. Prior laminectomies at L4 and L5 are again noted. IMPRESSION: 1. Abundant colonic stool burden is again noted and minimally improved when compared to prior exam 04/07/2020. 2. No acute inflammatory process is noted of the abdomen or pelvis. 3. Additional findings are similar to prior exam and described in detail above. Signer Name: Patricio Stephenson MD Signed: 07/15/2020 10:36 PM Workstation Name: [id number]
[2020-07-15] MEDS ORDERED: PANTOPRAZOLE 40 MG INJ IV ONE (23:20)
[2020-07-15 23:25] LABS: Bilirubin,Urine NEG (Negative); Blood,Urine NEG (Negative); Color,Urine Yellow (Yellow); Urobilinogen,Urine < 2.0 mg/dL (<2.0)
--- NOTE | 2020-07-16 00:20 | History and Physical Report ---
History of Present Illness Date of examination: 07/15/20 Date of admission: 07/15/20 23:17 Chief complaint: Dehydration CINDY Constipation History of present illness: Patient is a 64-year-old female that presents emergency room with complaints of nausea vomiting. Patient states the symptoms started 4 days ago. Patient dates his symptoms are worsening. Patient denies blood in her vomitus. Patient denies diarrhea. Patient chest pain is controlled. Patient states he is generalized abdominal pain. Patient states the abdominal pain is a stabbing pain. ED work-up shows WBC 4.4 hemoglobin 8.2, platelets 320, sodium is 143 potassium 4.8, creatinine 1.3, serum glucose 171, serum albumin 3.5, urine specific gravity elevated. CT of the abdomen and pelvis done with contrast which shows thickening of the gastric wall likely secondary to distention and the colon has abundant stool but there is no mechanical bowel obstruction. I reviewed medication record, medical record and vital signs. Also urinary bladder was visualized with no significant abnormality. Patient seen at bedside in the ED patient appears fragile, alert and oriented, she reported abdominal pain with nausea and vomiting that is ongoing, but she said that she is feeling better with the pain medicine given to her GI doctor consulted. Patient has a history of high blood pressure and diabetes. Hemoglobin A1c ordered patient is on sliding scale for insulin will resume home 70/30 insulin. Past History Past Medical History: diabetes, hypertension Past Surgical History: , Other (back surgery) Social history: lives with family Family history: diabetes, hypertension Medications and Allergies Allergies Allergy/AdvReac Type Severity Reaction Status Date / Time No Known Allergies Allergy Verified 04/07/20 11:10 Home Medications Medication Instructions Recorded Confirmed Last Taken Type Ibuprofen [Motrin 600 MG tab] 600 mg PO Q8H PRN #30 tablet 11/22/12 11/03/19 Unknown Rx Insulin Aspart Prot/Aspart(Nf) 15 units SQ BID 11/22/12 11/03/19 12/23/17 History [NovoLOG Mix 70/30 VIAL] traMADoL [Ultram 50 MG tab] 50 mg PO Q8HR PRN #6 tablet 10/21/19 11/03/19 Unknown Rx Amlodipine Besylate/Benazepril 1 each PO DAILY 11/03/19 11/03/19 Unknown History [Amlodipine-Benazepril 10-40 mg] Pantoprazole [Protonix] 40 mg PO QDAY #30 tablet 11/04/19 Unknown Rx Gabapentin 300 mg PO BID PRN #20 capsule 12/10/19 Unknown Rx Naproxen 500 mg PO BID PRN #15 tablet 12/10/19 Unknown Rx Docusate Sodium [Colace] 100 mg PO BID #60 capsule 04/07/20 Unknown Rx Naproxen [Naprosyn] 500 mg PO BID #20 tablet 04/07/20 Unknown Rx Acetaminophen [Acetaminophen 8 650 mg PO Q8HR PRN #30 tablet.er 06/26/20 Unknown Rx Hour] Diclofenac 1% [Diclofenac 1% 2 gm TP QID PRN #1 tube 06/26/20 Unknown Rx topical gel] Review of Systems Constitutional: weakness Ears, nose, mouth and throat: no epistaxis, no bleeding gums Breasts: no discharge Cardiovascular: high blood pressure Gastrointestinal: no melena Genitourinary Female: no vaginal itching Rectal: no itching, no hemorrhoids Musculoskeletal: no neck stiffness, no muscle weakness, no muscle cramps Integumentary: no rash, no pruritis Neurological: no weakness, no convulsions Psychiatric: no disorientation, no hallucinations Hematologic/Lymphatic: no easy bruising, no easy bleeding Allergic/Immunologic: no urticaria Exam - Constitutional Vitals: Temp Pulse Resp BP Pulse Ox 98.4 F 88 18 165/87 97 07/15/20 12:24 07/15/20 12:24 07/15/20 12:24 07/15/20 12:24 07/15/20 12:24 General appearance: Present: mild distress, cachectic - EENT Eyes: Present: PERRL ENT: hearing intact, clear oral mucosa - Neck Neck: Present: supple, normal ROM - Respiratory Respiratory effort: normal Respiratory: bilateral: CTA - Cardiovascular Heart Sounds: Present: S1 & S2. Absent: rub, click - Extremities Extremities: pulses symmetrical, No edema Peripheral Pulses: within normal limits - Abdominal General gastrointestinal: Present: soft, non-tender, non-distended, normal bowel sounds Female genitourinary: Present: normal - Integumentary Integumentary: Present: clear, warm, dry - Musculoskeletal Musculoskeletal: strength equal bilaterally, generalized weakness - Psychiatric Psychiatric: appropriate mood/affect, intact judgment & insight, cooperative - Neurologic Neurologic: CNII-XII intact, moves all extremities - Allied Health Allied health notes reviewed: nursing Results - Labs CBC & Chem 7: 07/15/20 13:54 07/15/20 13:54 Labs: Abnormal lab results 07/15/20 07/15/20 07/15/20 Range/Units 13:54 13:54 22:30 WBC 4.4 L (4.5-11.0) K/mm3 RBC 3.22 L (3.65-5.03) M/mm3 Hgb 8.2 L (10.1-14.3) gm/dl Hct 25.1 L (30.3-42.9) % MCV 78 L (79-97) fl MCH 26 L (28-32) pg RDW 21.4 H (13.2-15.2) % Lymph # (Auto) 1.0 L (1.2-5.4) K/mm3 BUN 27 H (7-17) mg/dL Creatinine 1.3 H (0.6-1.2) mg/dL Glucose 171 H (65-100) mg/dL Albumin 3.5 L (3.9-5) g/dL Ur Specific Williamson 1.031 H (1.003-1.030) Assessment and Plan - Patient Problems (1) Constipation Current Visit: Yes Status: Acute Qualifiers: Constipation type: unspecified constipation type Qualified Code(s): K59.00 - Constipation, unspecified Plan to address problem: Patient has abdominal pain nausea and vomiting likely secondary to constipation CT of the abdomen and pelvis shows gastric wall thickening secondary to distention and colon has abundant stool without obstruction. (2) CINDY (acute kidney injury) Current Visit: No Status: Acute Plan to address problem: Likely secondary to dehydration monitor kidney function Advised to avoid nephrotoxic drugs Urinary bladder-shows no significant abnormality on CT scan of the abdomen and pelvis (3) Acute anemia Current Visit: Yes Status: Acute Plan to address problem: Questionable cause -iron deficiency/malnutrition Monitor H&H We will transfuse packed red blood cells if needed iron and multivitamin supplement (4) Nausea & vomiting Current Visit: Yes Status: Acute Qualifiers: Vomiting type: unspecified Vomiting Intractability: intractable Qualified Code(s): R11.2 - Nausea with vomiting, unspecified Plan to address problem: Likely secondary to constipation Start antiemetic and laxative (5) DVT prophylaxis Current Visit: Yes Status: Acute Plan to address problem: scd
[2020-07-16] MEDS ORDERED: METOCLOPRAMIDE 10 MG/2 ML INJ IV PRN ×2 (01:08→01:25)
[2020-07-16] MEDS ORDERED: ONDANSETRON 4 MG/2 ML INJ IV PRN (01:08)
[2020-07-16] MEDS ORDERED: MAGNESIUM HYDROXIDE (MOM) ORAL LIQD UDC PO PRN (01:08)
[2020-07-16] MEDS ORDERED: ACETAMINOPHEN 325 MG TAB PO PRN (01:08)
[2020-07-16] MEDS ORDERED: ALUM-MAG HYDROXIDE-SIMETHICONE 200-200-20MG/5ML ORAL LIQD 30 ML PO PRN (01:08)
[2020-07-16] MEDS ORDERED: SODIUM CHLORIDE 0.9% 1000 ML 1,000 ML IV SCH (01:15)
[2020-07-16] MEDS ORDERED: SENNOSIDES 8.6 MG TAB PO SCH ×2 (02:00→22:00)
[2020-07-16] MEDS ORDERED: hydrALAZINE 20 MG/1 ML INJ IV PRN (03:04)
[2020-07-16] MEDS ORDERED: INSULIN LISPRO 100 UNIT/ML SUB-Q SCH (07:30)
[2020-07-16] MEDS ORDERED: INSULIN NPH/REGULAR 70/30 INJ SUB-Q SCH (08:00)
[2020-07-16] MEDS ORDERED: amLODIPine 10 MG TAB PO SCH (10:00)
[2020-07-16] MEDS ORDERED: LISINOPRIL 40 MG TAB PO SCH (10:00)
[2020-07-16] MEDS ORDERED: FAMOTIDINE 20 MG/2 ML INJ IV SCH ×2 (10:00)
[2020-07-16] MEDS ORDERED: LACTULOSE 20 GM/30 ML ORAL LIQD PO PRN (11:45)
--- NOTE | 2020-07-16 11:52 | Discharge Summary ---
Providers - Providers Date of Admission: 07/15/20 23:17 Attending physician: LONNIE HANCOCK MD 07/15/20 23:14 Consult to Physician [CONS] Routine Comment: Dr. Treviño spoke with Dr. Cedeno @ [phone] Consulting Provider: RIGO CEDENO Physician Instructions: Reason For Exam: gi bleed. anemia Primary care physician: MARTIN ROSAS Hospitalization Reason for admission: Anemia Condition: Stable Hospital course: Patient is a 64-year-old female that presents emergency room with complaints of nausea vomiting. Patient states the symptoms started 4 days ago. Patient dates his symptoms are worsening. Patient denies blood in her vomitus. Patient denies diarrhea. Patient chest pain is controlled. Patient states he is generalized abdominal pain. Patient states the abdominal pain is a stabbing pain. ED work-up shows WBC 4.4 hemoglobin 8.2, platelets 320, sodium is 143 potassium 4.8, creatinine 1.3, serum glucose 171, serum albumin 3.5, urine specific gravity elevated. CT of the abdomen and pelvis done with contrast which shows thickening of the gastric wall likely secondary to distention and the colon has abundant stool but there is no mechanical bowel obstruction. I reviewed medication record, medical record and vital signs. Also urinary bladder was visualized with no significant abnormality. Patient seen at bedside in the ED patient appears fragile, alert and oriented, she reported abdominal pain with nausea and vomiting that is ongoing, but she said that she is feeling better with the pain medicine given to her GI doctor consulted. Patient has a history of high blood pressure and diabetes. Hemoglobin A1c ordered patient is on sliding scale for insulin will resume home 70/30 insulin. Patient seen and evaluated today reports improvement in her symptoms. She reports one episode of bowel movement. She has had repeated issues with constipation in the past. I did discuss opioid use and other work-up she verbalized that she would like to be discharged to follow-up with her GI doctor outpatient. I did touch base with GI here there is no planned intervention but they will evaluate the patient prior to discharge. Also concerning is for gastroparesis related to diabetes mellitus. Severe constipation Anemia CINDY WITH CKD Nausea and vomiting. Disposition: DC- TO HOME OR SELFCARE Final Discharge Diagnosis (Prints w/discharge instructions): Severe constipation Time spent for discharge: 35 mins Core Measure Documentation - Palliative Care Palliative Care/ Comfort Measures: Not Applicable - Core Measures Any of the following diagnoses?: none Exam - Physical Exam Narrative exam: VITAL SIGNS: Reviewed. GENERAL: The patient appears normally developed, Vital signs as documented. HEAD: No signs of head trauma. EYES: Pupils are equal. Extraocular motions intact. EARS: Hearing grossly intact. MOUTH: Oropharynx is normal. NECK: No adenopathy, no JVD. CHEST: Chest with clear breath sounds bilaterally. No wheezes, rales, or rhonchi. CARDIAC: Regular rate and rhythm. S1 and S2, without murmurs, gallops, or rubs. VASCULAR: No Edema. Peripheral pulses normal and equal in all extremities. ABDOMEN: Soft, non tender and non distended. No rebound or guarding, and no masses palpated. Bowel Sounds normal. MUSCULOSKELETAL: Good range of motion of all major joints. Extremities without clubbing, cyanosis or edema. NEUROLOGIC EXAM: Alert and oriented x 3 No focal sensory or strength deficits. Speech normal. Follows commands. PSYCHIATRIC: Mood normal. SKIN: detail exam as documented in skin assessment - Constitutional Vitals: Temp Pulse Resp BP Pulse Ox 97.7 F 84 16 123/75 100 07/16/20 05:34 07/16/20 09:35 07/16/20 05:34 07/16/20 09:35 07/16/20 06:00 Plan Follow up with: KHRIS RUBIN MD [Staff Physician] - 7 Days MARTIN ROSAS MD [Primary Care Provider] - 3-5 Days Prescriptions: amLODIPine 10 mg PO QDAY #30 tablet Docusate Sodium [Colace CAP] 100 mg PO BID #60 capsule bisacodyL [Dulcolax suppos] 10 mg FL QDAY #10 supp.rect Sennosides Tab [Senokot] 8.6 mg PO Q12HR #30 tablet Ondansetron [Zofran Odt] 4 mg PO Q6H PRN #30 tab.rapdis PRN Reason: Nausea
[2020-07-16 15:22] VITALS: BP 143/75
--- NOTE | 2020-07-16 15:51 | Event Note ---
Date: 07/16/20 GI consulted for nausea/vomiting and anemia. Patient was discharged prior to in person evaluation. Per chart review, patient with symptoms of nausea/vomiting but no hematemesis or melena. Noted to have microcytic anemia with hgb at 8. Called patient on the phone. She states her stools have been dark but no BM since yesterday. Told her to come back to the hospital if she is having black stools.
== END 2020-07-16 15:30 | disposition home or self-care (01) ==
LOC: ED 11:49 → 3A 23:17 → INTOOBSV 23:17
PROVIDERS: ADMIT Internal Medicine Geriatric Medicine; ATTEND Internal Medicine
DX: K59.00 Constipation, unspecified (principal); N17.9 Acute kidney failure, unspecified; K52.9 Noninfective gastroenteritis and colitis, unspecified; D64.9 Anemia, unspecified; R11.2 Nausea with vomiting, unspecified; I10 Essential (primary) hypertension; E11.9 Type 2 diabetes mellitus without complications; Z98.891 History of uterine scar from previous surgery; Z98.890 Other specified postprocedural states; Z79.4 Long term (current) use of insulin
CPT/HCPCS: 36415; 74177; 80053; 81001; 82962; 83036; 85025; 96361; 96374; 96375; 99291; C9113; G0378; J0360; J1170; J2405; J7030; Q9967

== ENCOUNTER 2020-09-04 15:03 | Emergency (ER) | payer MEDICARE ==
[2020-09-04 15:54] VITALS: BP 143/70
--- NOTE | 2020-09-04 17:54 | Emergency Department Report ---
ED Lower Extremity HPI - General Chief Complaint: Extremity Injury, Lower Stated Complaint: FALLING Time Seen by Provider: 09/04/20 17:37 Source: patient Mode of arrival: Ambulatory Limitations: No Limitations - History of Present Illness Initial Comments: Patient is a 65-year-old female presents emergency room with complaints of a trip and fall that occurred 2 days ago. Patient states that she fell directly onto her right knee. She states since then she has been having right knee pain and feeling a throbbing sensation. She denies ever injuring this knee in the past. She denies any numbness or weakness. She has been ambulatory. No allergies to medications. - Related Data Home Medications Medication Instructions Recorded Confirmed Last Taken Insulin Aspart Prot/Aspart(Nf) 15 units SQ BID 11/22/12 11/03/19 12/23/17 [NovoLOG Mix 70/30 VIAL] Amlodipine Besylate/Benazepril 1 each PO DAILY 11/03/19 11/03/19 Unknown [Amlodipine-Benazepril 10-40 mg] Previous Rx's Medication Instructions Recorded Last Taken Type traMADoL [Ultram 50 MG tab] 50 mg PO Q8HR PRN #6 tablet 10/21/19 Unknown Rx Pantoprazole [Protonix TAB] 40 mg PO QDAY #30 tablet 11/04/19 Unknown Rx Gabapentin 300 mg PO BID PRN #20 capsule 12/10/19 Unknown Rx Acetaminophen [Acetaminophen 8 650 mg PO Q8HR PRN #30 tablet.er 06/26/20 Unknown Rx Hour] Docusate Sodium [Colace CAP] 100 mg PO BID #60 capsule 07/16/20 Unknown Rx Ondansetron [Zofran Odt] 4 mg PO Q6H PRN #30 tab.rapdis 07/16/20 Unknown Rx Sennosides Tab [Senokot] 8.6 mg PO Q12HR #30 tablet 07/16/20 Unknown Rx amLODIPine 10 mg PO QDAY #30 tablet 07/16/20 Unknown Rx bisacodyL [Dulcolax suppos] 10 mg [place] QDAY #10 supp.rect 07/16/20 Unknown Rx Acetaminophen [Tylenol] 325 mg PO Q8HR PRN #20 capsule 09/04/20 Unknown Rx traMADoL [Ultram 50 MG tab] 50 mg PO Q8HR PRN #12 tablet 09/04/20 Unknown Rx Allergies Allergy/AdvReac Type Severity Reaction Status Date / Time No Known Allergies Allergy Verified 09/04/20 15:51 ED Review of Systems ROS: Stated complaint: FALLING Other details as noted in HPI Comment: All other systems reviewed and negative ED Past Medical Hx - Past Medical History Previous Medical History?: No Hx Hypertension: Yes Hx Diabetes: Yes Hx HIV: No Additional medical history: Shingles, Sarcadosis, neuropathy - Surgical History Past Surgical History?: Yes Additional Surgical History: Back Surgery, c section - Social History Smoking Status: Never Smoker - Medications Home Medications: Home Medications Medication Instructions Recorded Confirmed Last Taken Type Insulin Aspart Prot/Aspart(Nf) 15 units SQ BID 11/22/12 11/03/19 12/23/17 History [NovoLOG Mix 70/30 VIAL] traMADoL [Ultram 50 MG tab] 50 mg PO Q8HR PRN #6 tablet 10/21/19 11/03/19 Unknown Rx Amlodipine Besylate/Benazepril 1 each PO DAILY 11/03/19 11/03/19 Unknown History [Amlodipine-Benazepril 10-40 mg] Pantoprazole [Protonix TAB] 40 mg PO QDAY #30 tablet 11/04/19 Unknown Rx Gabapentin 300 mg PO BID PRN #20 capsule 12/10/19 Unknown Rx Acetaminophen [Acetaminophen 8 650 mg PO Q8HR PRN #30 tablet.er 06/26/20 Unknown Rx Hour] Docusate Sodium [Colace CAP] 100 mg PO BID #60 capsule 07/16/20 Unknown Rx Ondansetron [Zofran Odt] 4 mg PO Q6H PRN #30 tab.rapdis 07/16/20 Unknown Rx Sennosides Tab [Senokot] 8.6 mg PO Q12HR #30 tablet 07/16/20 Unknown Rx amLODIPine 10 mg PO QDAY #30 tablet 07/16/20 Unknown Rx bisacodyL [Dulcolax suppos] 10 mg [place] QDAY #10 supp.rect 07/16/20 Unknown Rx Acetaminophen [Tylenol] 325 mg PO Q8HR PRN #20 capsule 09/04/20 Unknown Rx traMADoL [Ultram 50 MG tab] 50 mg PO Q8HR PRN #12 tablet 09/04/20 Unknown Rx ED Physical Exam - General Limitations: No Limitations General appearance: alert, in no apparent distress - Head Head exam: Present: atraumatic, normocephalic - Eye Eye exam: Present: normal appearance - ENT ENT exam: Present: mucous membranes moist - Extremities Exam Extremities exam: Present: other (ttp to the right anterior knee overlying the patella, FROM of the RLE, no obvious deformity, neurovascularly intact) - Neurological Exam Neurological exam: Present: alert, oriented X3 - Psychiatric Psychiatric exam: Present: normal affect, normal mood - Skin Skin exam: Present: warm, dry, intact ED Course Vital Signs 09/04/20 09/04/20 15:52 18:12 Temperature 98.6 F 98.6 F Pulse Rate 89 89 Respiratory 18 18 Rate Blood Pressure 143/70 143/70 [Right] O2 Sat by Pulse 100 100 Oximetry ED Lower Extremity MDM - Radiology Data Radiology results: report reviewed Ordering Physician: LOVE MELARA Date of Service: 09/04/20 Procedure(s): XR knee 3V RT Accession Number(s): [id number] cc: LOVE MELARA Fluoro Time In Minutes: Right knee 4 views INDICATION: Fall FINDINGS: Alignment appears normal. There is some mild irregularity inferior pole of the patella. No large joint effusion is seen. Tibia and fibula appear intact. IMPRESSION: Mild irregularity in the inferior pole of patella could represent degenerative change and osteophyte however clinical correlation with point tenderness. No joint effusion. Signer Name: Denny Moise MD Signed: 09/04/2020 5:24 PM Workstation Name: [id number] Transcribed By: CW Dictated By: ELAYNE MOISE MD Electronically Authenticated By: ELAYNE MOISE MD Signed Date/Time: 09/04/201723 DD/ 23 TD/TT: - Medical Decision Making Patient is a 65-year-old female presents emergency room with complaints of a trip and fall that occurred 2 days ago. Patient states that she fell directly onto her right knee. She states since then she has been having right knee pain and feeling a throbbing sensation. She denies ever injuring this knee in the past. She denies any numbness or weakness. She has been ambulatory. No allergies to medications. vss. on exam: ttp to the right anterior knee overlying the patella, FROM of the RLE, no obvious deformity, neurovascularly intact. X- ray right knee: Mild irregularity in the inferior pole of patella could represent degenerative change and osteophyte however clinical correlation with point tenderness. No joint effusion. Given that patient is having tenderness palpation in this region, she was placed in a knee immobilizer and given crutches by nurse. Discussed the importance of orthopedic follow-up. Patient given prescription for medications. Advised patient Please take medication as prescribed as needed. Follow-up with orthopedic doctor. Return to emergency room for new or worse symptoms. Critical care attestation.: If time is entered above; I have spent that time in minutes in the direct care of this critically ill patient, excluding procedure time. ED Disposition Clinical Impression: Right knee injury Qualifiers: Encounter type: initial encounter Qualified Code(s): S89.91XA - Unspecified injury of right lower leg, initial encounter Disposition: TO HOME OR SELFCARE Is pt being admited?: No Does the pt Need Aspirin: No Condition: Stable Instructions: Acute Knee Pain, Adult Additional Instructions: Please take medication as prescribed as needed. Follow-up with orthopedic docto r. Return to emergency room for new or worse symptoms. Prescriptions: Acetaminophen [Tylenol] 325 mg PO Q8HR PRN #20 capsule PRN Reason: pain traMADoL [Ultram 50 MG tab] 50 mg PO Q8HR PRN #12 tablet PRN Reason: Pain , Severe (7-10) Referrals: EDGARD VILLAFANA MD [Staff Physician] - 3-5 Days [facility] [Provider Group] - 3-5 Days Time of Disposition: 17:52 Print Language: IRAQI
== END 2020-09-04 18:12 | disposition home or self-care (01) ==
LOC: ED 15:03
DX: S89.91XA Unspecified injury of right lower leg, initial encounter (principal); I10 Essential (primary) hypertension; E11.9 Type 2 diabetes mellitus without complications; Z98.890 Other specified postprocedural states; Z79.4 Long term (current) use of insulin; Z79.899 Other long term (current) drug therapy; W01.0XXA Fall on same level from slipping, tripping and stumbling without subsequent striking against object, initial encounter; Y93.89 Activity, other specified; Y92.89 Other specified places as the place of occurrence of the external cause; Y99.8 Other external cause status

== ENCOUNTER 2020-10-14 20:21 | Emergency (ER) | payer MEDICARE ==
[2020-10-14 22:02] VITALS: BP 150/90
[2020-10-14 23:06] LABS: Bacteria,Urine 1+ /HPF (Negative); Bilirubin,Urine NEG (Negative); Blood,Urine NEG (Negative); Color,Urine Yellow (Yellow); Hyaline Casts,Urine 31 /LPF; Mucus,Urine FEW /HPF; Protein,Urine <15 mg/dL mg/dL (Negative); Urobilinogen,Urine < 2.0 mg/dL (<2.0)
[2020-10-14 23:56] LABS: Eosinophils % (Auto) 1.1 % (0.0-4.3); Hematocrit 25.9 % (30.3-42.9); Hemoglobin 8.3 gm/dl (10.1-14.3); Lymphocytes # (Auto) 0.8 K/mm3 (1.2-5.4); Lymphocytes % (Auto) 21.3 % (13.4-35.0); Mean Corpuscular HGB Conc 32 % (30-34); Monocytes # (Auto) 0.2 K/mm3 (0.0-0.8); Platelet Count 431 K/mm3 (140-440)
[2020-10-14 23:57] LABS: Mean Corpuscular Volume 70 fl (79-97); Red Cell Distribution Width 20.2 % (13.2-15.2)
[2020-10-15 00:14] LABS: Alanine Aminotransferase 7 units/L (7-56); BUN/Creatinine Ratio 28; Blood Urea Nitrogen 33 mg/dL (7-17); Calcium 9.4 mg/dL (8.4-10.2); Hemolysis Index 0
--- NOTE | 2020-10-15 06:04 | Cat Scan Report ---
CT ABDOMEN AND PELVIS WITH CONTRAST HISTORY: Patient complains of lower abdominal pain. COMPARISON: CT abdomen/pelvis from 07/15/2020 TECHNIQUE: CT images of the abdomen and pelvis were obtained following administration of intravenous contrast. All CT scans at this location are performed using CT dose reduction for ALARA by means of automated exposure control. CONTRAST: 100 ml of intravenous contrast administered. FINDINGS: Lungs/bones: Lung bases are clear. There are degenerative changes throughout the spine and pelvis wi th no acute osseous abnormality identified. Abdomen/pelvis: Liver, gallbladder, spleen, pancreas, adrenals, and proximal GI tract appear unremar kable. There are simple bilateral renal cysts. Urinary bladder and uterus appear unremarkable. No pelvic free fluid. Moderate colonic stool burden m ay be seen with constipation. No acute inflammatory change. IMPRESSION: 1. Findings suggesting constipation. Signer Name: Andrei Do MD Signed: 10/15/2020 6:00 AM Workstation Name: [id number]
--- NOTE | 2020-10-15 07:08 | Emergency Department Report ---
ED Abdominal Pain HPI - General Chief Complaint: Abdominal Pain Stated Complaint: STOMACH PAIN Time Seen by Provider: 10/15/20 06:59 Source: patient Mode of arrival: Ambulatory Limitations: No Limitations - History of Present Illness Initial Comments: 65-year-old -[place] female with a past medical history of chronic recurrent abdominal pain, constipation, chronic anemia, hypertension and diabetes has been evaluated in the emergency department multiple times for the similar complaints she presents emergency department complaining of generalized abdominal pain associated with nausea and no vomiting as well as no no diarrhea. Symptoms are continue to wax and wane since the onset pain being a dull crampy fashion and worsened with palpation and certain positions. Reports no fever, chills, sweats, no hemoptysis no hematemesis no hematochezia she reports no melena she reports no chest pain, no palpitation, no shortness of breath, no known contact with coronavirus no foreign travel, no meals which may have exacerbated or explored any abdominal symptoms. MD Complaint: abdominal pain Location: diffuse Radiation: LUQ, RUQ, LLQ, RLQ Migration to: suprapubic Severity: moderate, severe Quality: aching, dull Associated Symptoms: denies: anorexia, syncope - Related Data Home Medications Medication Instructions Recorded Confirmed Last Taken Insulin Aspart Prot/Aspart(Nf) 15 units SQ BID 11/22/12 11/03/19 12/23/17 [NovoLOG Mix 70/30 VIAL] Amlodipine Besylate/Benazepril 1 each PO DAILY 11/03/19 11/03/19 Unknown [Amlodipine-Benazepril 10-40 mg] Previous Rx's Medication Instructions Recorded Last Taken Type traMADoL [Ultram 50 MG tab] 50 mg PO Q8HR PRN #6 tablet 10/21/19 Unknown Rx Pantoprazole [Protonix TAB] 40 mg PO QDAY #30 tablet 11/04/19 Unknown Rx Gabapentin 300 mg PO BID PRN #20 capsule 12/10/19 Unknown Rx Acetaminophen [Acetaminophen 8 650 mg PO Q8HR PRN #30 tablet.er 06/26/20 Unknown Rx Hour] Ondansetron [Zofran Odt] 4 mg PO Q6H PRN #30 tab.rapdis 07/16/20 Unknown Rx Sennosides Tab [Senokot] 8.6 mg PO Q12HR #30 tablet 07/16/20 Unknown Rx amLODIPine 10 mg PO QDAY #30 tablet 07/16/20 Unknown Rx Acetaminophen [Tylenol] 325 mg PO Q8HR PRN #20 capsule 09/04/20 Unknown Rx traMADoL [Ultram 50 MG tab] 50 mg PO Q8HR PRN #12 tablet 09/04/20 Unknown Rx Docusate Sodium [Colace CAP] 100 mg PO BID #60 capsule 10/15/20 Unknown Rx Lactulose [Cephulac] 20 gm PO Q6HR #240 ml 10/15/20 Unknown Rx bisacodyL [Dulcolax suppos] 10 mg [place] QDAY #10 supp.rect 10/15/20 Unknown Rx Allergies Allergy/AdvReac Type Severity Reaction Status Date / Time No Known Allergies Allergy Verified 09/04/20 15:51 ED Review of Systems ROS: Stated complaint: STOMACH PAIN Other details as noted in HPI Comment: All other systems reviewed and negative ED Past Medical Hx - Past Medical History Hx Hypertension: Yes Hx Diabetes: Yes Hx HIV: No Additional medical history: Shingles, Sarcadosis, neuropathy - Surgical History Additional Surgical History: Back Surgery, c section - Social History Smoking Status: Never Smoker - Medications Home Medications: Home Medications Medication Instructions Recorded Confirmed Last Taken Type Insulin Aspart Prot/Aspart(Nf) 15 units SQ BID 11/22/12 11/03/19 12/23/17 History [NovoLOG Mix 70/30 VIAL] traMADoL [Ultram 50 MG tab] 50 mg PO Q8HR PRN #6 tablet 10/21/19 11/03/19 Unknown Rx Amlodipine Besylate/Benazepril 1 each PO DAILY 11/03/19 11/03/19 Unknown History [Amlodipine-Benazepril 10-40 mg] Pantoprazole [Protonix TAB] 40 mg PO QDAY #30 tablet 11/04/19 Unknown Rx Gabapentin 300 mg PO BID PRN #20 capsule 12/10/19 Unknown Rx Acetaminophen [Acetaminophen 8 650 mg PO Q8HR PRN #30 tablet.er 06/26/20 Unknown Rx Hour] Ondansetron [Zofran Odt] 4 mg PO Q6H PRN #30 tab.rapdis 07/16/20 Unknown Rx Sennosides Tab [Senokot] 8.6 mg PO Q12HR #30 tablet 07/16/20 Unknown Rx amLODIPine 10 mg PO QDAY #30 tablet 07/16/20 Unknown Rx Acetaminophen [Tylenol] 325 mg PO Q8HR PRN #20 capsule 09/04/20 Unknown Rx traMADoL [Ultram 50 MG tab] 50 mg PO Q8HR PRN #12 tablet 09/04/20 Unknown Rx Docusate Sodium [Colace CAP] 100 mg PO BID #60 capsule 10/15/20 Unknown Rx Lactulose [Cephulac] 20 gm PO Q6HR #240 ml 10/15/20 Unknown Rx bisacodyL [Dulcolax suppos] 10 mg [place] QDAY #10 supp.rect 10/15/20 Unknown Rx ED Physical Exam - General Limitations: No Limitations General appearance: alert, in no apparent distress - Head Head exam: Present: atraumatic, normocephalic - Eye Eye exam: Present: normal appearance, PERRL - ENT ENT exam: Present: mucous membranes moist - Neck Neck exam: Present: normal inspection - Respiratory Respiratory exam: Present: normal lung sounds bilaterally. Absent: respiratory distress - Cardiovascular Cardiovascular Exam: Present: regular rate, normal rhythm. Absent: systolic murmur, diastolic murmur, rubs, gallop - GI/Abdominal GI/Abdominal exam: Present: soft, tenderness (Central diffuse abdominal tenderness palpation which appears to be significant due to the patient's response but there is no guarding. There is no [place] sign, no Kaur Sarabia, no Rovsing, no CVA tenderness. The abdomen feels full but not distended), normal bowel sounds - Extremities Exam Extremities exam: Present: normal inspection - Back Exam Back exam: Present: normal inspection - Neurological Exam Neurological exam: Present: alert, oriented X3, CN II-XII intact, normal gait - Psychiatric Psychiatric exam: Present: normal affect, normal mood - Skin Skin exam: Present: warm, dry, intact, normal color. Absent: rash ED Course Vital Signs 10/14/20 21:56 Temperature 97.9 F Pulse Rate 79 Respiratory 18 Rate Blood Pressure 150/90 O2 Sat by Pulse 100 Oximetry ED Medical Decision Making - Lab Data Result diagrams: 10/14/20 23:00 10/14/20 23:00 Lab Results 10/14/20 10/14/20 10/14/20 Range/Units 23:00 23:00 23:00 WBC 3.7 L (4.5-11.0) K/mm3 RBC 3.70 (3.65-5.03) M/mm3 Hgb 8.3 L (10.1-14.3) gm/dl Hct 25.9 L (30.3-42.9) % MCV 70 L (79-97) fl MCH 23 L (28-32) pg MCHC 32 (30-34) % RDW 20.2 H (13.2-15.2) % Plt Count 431 (140-440) K/mm3 Lymph % (Auto) 21.3 (13.4-35.0) % [place] % (Auto) 5.0 (0.0-7.3) % Eos % (Auto) 1.1 (0.0-4.3) % Baso % (Auto) 1.0 (0.0-1.8) % Lymph # (Auto) 0.8 L (1.2-5.4) K/mm3 [place] # (Auto) 0.2 (0.0-0.8) K/mm3 Eos # (Auto) 0.0 (0.0-0.4) K/mm3 Baso # (Auto) 0.0 (0.0-0.1) K/mm3 Seg Neutrophils % 71.6 H (40.0-70.0) % Seg Neutrophils # 2.7 (1.8-7.7) K/mm3 Sodium 139 (137-145) mmol/L Potassium 5.1 H (3.6-5.0) mmol/L Chloride 103.5 (98-107) mmol/L Carbon Dioxide 26 (22-30) mmol/L Anion Gap 15 mmol/L BUN 33 H (7-17) mg/dL Creatinine 1.2 (0.6-1.2) mg/dL Estimated GFR 54 ml/min BUN/Creatinine Ratio 28 % Glucose 129 H (65-100) mg/dL Calcium 9.4 (8.4-10.2) mg/dL Total Bilirubin < 0.20 (0.1-1.2) mg/dL AST 19 (5-40) units/L ALT 7 (7-56) units/L Alkaline Phosphatase 91 (35-129) units/L Total Protein 7.6 (6.3-8.2) g/dL Albumin 4.0 (3.9-5) g/dL Albumin/Globulin Ratio 1.1 % Lipase 77 H (13-60) units/L Urine Color (Yellow) Urine Turbidity (Clear) Urine pH (5.0-7.0) Ur Specific [place] (1.003-1.030) Urine Protein (Negative) mg/dL Urine Glucose (UA) (Negative) mg/dL Urine Ketones (Negative) mg/dL Urine Blood (Negative) Urine Nitrite (Negative) Urine Bilirubin (Negative) Urine Urobilinogen (<2.0) mg/dL Ur Leukocyte Esterase (Negative) Urine WBC (Auto) (0.0-6.0) /HPF Urine RBC (Auto) (0.0-6.0) /HPF U Epithel Cells (Auto) (0-13.0) /HPF Urine Bacteria (Auto) (Negative) /HPF Hyaline Casts /LPF Urine Mucus /HPF 10/14/20 Range/Units Unknown WBC (4.5-11.0) K/mm3 RBC (3.65-5.03) M/mm3 Hgb (10.1-14.3) gm/dl Hct (30.3-42.9) % MCV (79-97) fl MCH (28-32) pg MCHC (30-34) % RDW (13.2-15.2) % Plt Count (140-440) K/mm3 Lymph % (Auto) (13.4-35.0) % [place] % (Auto) (0.0-7.3) % Eos % (Auto) (0.0-4.3) % Baso % (Auto) (0.0-1.8) % Lymph # (Auto) (1.2-5.4) K/mm3 [place] # (Auto) (0.0-0.8) K/mm3 Eos # (Auto) (0.0-0.4) K/mm3 Baso # (Auto) (0.0-0.1) K/mm3 Seg Neutrophils % (40.0-70.0) % Seg Neutrophils # (1.8-7.7) K/mm3 Sodium (137-145) mmol/L Potassium (3.6-5.0) mmol/L Chloride (98-107) mmol/L Carbon Dioxide (22-30) mmol/L Anion Gap mmol/L BUN (7-17) mg/dL Creatinine (0.6-1.2) mg/dL Estimated GFR ml/min BUN/Creatinine Ratio % Glucose (65-100) mg/dL Calcium (8.4-10.2) mg/dL Total Bilirubin (0.1-1.2) mg/dL AST (5-40) units/L ALT (7-56) units/L Alkaline Phosphatase (35-129) units/L Total Protein (6.3-8.2) g/dL Albumin (3.9-5) g/dL Albumin/Globulin Ratio % Lipase (13-60) units/L Urine Color Yellow (Yellow) Urine Turbidity Slightly-cloudy (Clear) Urine pH 5.0 (5.0-7.0) Ur Specific [place] 1.014 (1.003-1.030) Urine Protein <15 mg/dl (Negative) mg/dL Urine Glucose (UA) Neg (Negative) mg/dL Urine Ketones Neg (Negative) mg/dL Urine Blood Neg (Negative) Urine Nitrite Neg (Negative) Urine Bilirubin Neg (Negative) Urine Urobilinogen < 2.0 (<2.0) mg/dL Ur Leukocyte Esterase Neg (Negative) Urine WBC (Auto) 4.0 (0.0-6.0) /HPF Urine RBC (Auto) 2.0 (0.0-6.0) /HPF U Epithel Cells (Auto) 5.0 (0-13.0) /HPF Urine Bacteria (Auto) 1+ (Negative) /HPF Hyaline Casts 31 /LPF Urine Mucus Few /HPF - Radiology Data Radiology results: [place] [id number] Cat Scan Report Signed Patient: FELIPA ORONA MR#: [id number] : 1955 Acct:[id number] Age/Sex: 65 / F ADM Date: 10/14/20 Loc: ED Attending Dr: Ordering Physician: LOVE CHOWDARY Date of Service: 10/15/20 Procedure(s): CT abdomen pelvis w con Accession Number(s): [id number] cc: LOVE CHOWDARY CT ABDOMEN AND PELVIS WITH CONTRAST HISTORY: Patient complains of lower abdominal pain. COMPARISON: CT abdomen/pelvis from 07/15/2020 TECHNIQUE: CT images of the abdomen and pelvis were obtained following administration of intravenous contrast. All CT scans at this location are performed using CT dose reduction for ALARA by means of automated exposure control. CONTRAST: 100 ml of intravenous contrast administered. FINDINGS: Lungs/bones: Lung bases are clear. There are degenerative changes throughout the spine and pelvis with no acute osseous abnormality identified. Abdomen/pelvis: Liver, gallbladder, spleen, pancreas, adrenals, and proximal GI tract appear unremarkable. There are simple bilateral renal cysts. Urinary bladder and uterus appear unremarkable. No pelvic free fluid. Moderate colonic stool burden may be seen with constipation. No acute inflammatory change. IMPRESSION: 1. Findings suggesting constipation. Signer Name: Andrei Do MD Signed: 10/15/2020 6:00 AM Workstation Name: [id number] Transcribed By: LAZ Dictated By: Andrei Do MD Electronically Authenticated By: Andrei Do MD Signed Date/Time: 10/15/20 06 DD/ 7 TD/TT: Print Cancel - Medical Decision Making This patient presents with abdominal pain of unclear etiology but may be secondarily related to acute on chronic constipation. A CT scan was performed to evaluate for potential causes of the abdominal pain, however, neither the clinical exam nor the CT has identified an emergent etiology for the abdominal pain. Specifically, given the benign exam, the laboratory studies, and unremarkable CT, I have a very low suspicion for appendicitis, ischemic bowel, bowel perforation, or any other life threatening disease. I have discussed with the patient the level of uncertainty with undifferentiated abdominal pain and clearly explained the need to follow-up as noted on the discharge instructions, or return to the Emergency Department immediately if the pain worsens, develops fever, persistent and uncontrollable vomiting, or for any new symptoms or concerns. We will get the meds. The necessary medications help to alleviate her constipation symptoms at this appears to be a chronic issue she has been evaluated emergency department multiple times this year for similar complaints and has had her share of CT scans and 2020 moving forward for the remainder of this year at minimum need to be more cautious with radiation selection caring for this patient Critical care attestation.: If time is entered above; I have spent that time in minutes in the direct care of this critically ill patient, excluding procedure time. ED Disposition Clinical Impression: Abdominal pain, Constipation Disposition: DC-01 TO HOME OR SELFCARE Is pt being admited?: No Does the pt Need Aspirin: No Condition: Stable Instructions: Constipation, Adult, Abdominal Pain, Adult, [id number], Abdominal Pain (ED) Additional Instructions: You have been evaluated emergency department today for abdominal pain. Your evaluation did not show evidence of any medical conditions requiring emergent intervention at this time. Your lipase was it was elevated but not to a significant degree significant pancreatitis does not appear to be present at this time please drink plenty of fluids. The fluids were to resolve your constipation please also take the medication prescribed to alleviate your constipation symptoms which is contributing to your abdominal pain and be sure to follow-up for reevaluation and definitive treatments Please schedule an appointment with your primary care physician. Return to emergency department if you experience worsening uncontrolled pain, fevers of 100.4 or greater, recurrent vomiting, inability to tolerate food or fluids by mouth, bloody stools or vomit, black tarry stools, or any other concerning symptoms. Prescriptions: Lactulose [Cephulac] 20 gm PO Q6HR #240 ml Docusate Sodium [Colace CAP] 100 mg PO BID #60 capsule bisacodyL [Dulcolax suppos] 10 mg [place] QDAY #10 supp.rect Referrals: PRIMARY CARE, [Primary Care Provider] - 3-5 Days
== END 2020-10-15 07:35 | disposition home or self-care (01) ==
LOC: ED 20:21
DX: R10.84 Generalized abdominal pain (principal); K59.00 Constipation, unspecified; I10 Essential (primary) hypertension; E11.8 Type 2 diabetes mellitus with unspecified complications; B02.9 Zoster without complications; G62.9 Polyneuropathy, unspecified; Z98.890 Other specified postprocedural states
CPT/HCPCS: 36415; 74177; 80053; 81001; 83690; 85025; 99284; Q9967

== ENCOUNTER 2020-11-13 17:38 | Emergency (ER) | payer MEDICARE ==
[2020-11-13 18:33] VITALS: BP 173/83
--- NOTE | 2020-11-13 19:02 | Emergency Department Report ---
Chief Complaint: Fall Stated Complaint: BOTH FEET ARE SWOLLEN - HPI History of Present Illness: This is a 65-year-old female with history of insulin-dependent diabetes, hypertension, sarcoidosis who presents after fall. She has bilateral knee pain, left foot ankle pain swelling. X-rays ordered. - Exam Vital Signs: Vital Signs 11/13/20 18:27 Temperature 98.1 F Pulse Rate 81 Respiratory 17 Rate Blood Pressure 173/83 O2 Sat by Pulse 100 Oximetry MSE screening note: Focused history and physical exam performed. Due to findings the following was ordered: ED Disposition for MSE Condition: Stable
--- NOTE | 2020-11-13 21:13 | XRay Report ---
LEFT KNEE, 4 VIEWS INDICATION / CLINICAL INFORMATION: fall, knee swelling. COMPARISON: None available. FINDINGS: Prepatellar edema is noted. No fracture, dislocation, or suggestion of joint effusion, however. Very mild degenerative change noted. IMPRESSION: Mild prepatellar soft tissue edema aerated no acute osseous abnormality. LEFT ANKLE, 2 VIEW INDICATION / CLINICAL INFORMATION: fall swelling. COMPARISON: None available. FINDINGS: Prominent lateral soft tissue swelling. No visible fracture or malalignment identified. IMPRESSION: Lateral soft tissue swelling indicative of sprain. No definitive fracture identified. LEFT FOOT 2 VIEWS INDICATION / CLINICAL INFORMATION: fall swelling. COMPARISON: None available. FINDINGS: There is dorsal soft tissue swelling. No acute fracture or malalignment identified. There is prominen t degenerative change within the great toe MTP joint. IMPRESSION: Dorsal soft tissue swelling, but no visible fracture or malalignment. Signer Name: Gracie Barnett MD Signed: 11/13/2020 9:08 PM Workstation Name: [id number]
[2020-11-13] MEDS ORDERED: IBUPROFEN 400 MG TAB PO ONE (22:44)
[2020-11-13] MEDS ORDERED: FAMOTIDINE 20 MG TAB PO ONE (22:44)
[2020-11-13] MEDS ORDERED: HYDROcodone/ACETAMINOPHEN 5-325 MG TAB PO ONE (22:44)
[2020-11-13] MEDS ORDERED: ONDANSETRON 4 MG ODT TAB PO ONE (22:44)
--- NOTE | 2020-11-13 22:51 | Emergency Department Report ---
ED Fall HPI - General Chief Complaint: Fall Stated Complaint: BOTH FEET ARE SWOLLEN Source: patient Mode of arrival: Ambulatory - History of Present Illness Initial Comments: Patient is a 65-year-old -[place] female with a history of hypertension, [id number] diabetes and chronic degenerative joint disease who presents to the ED with complaint of acute onset persistent severe bilateral knee pain, bilateral ankle pain, and bilateral foot pain and swelling for 24 hours after she lost balance and fell down landing on her knees 24 hours ago without hitting her head. Patient states that the pain has been persistent and worse and that she is unable bear weight on bilateral lower extremities. Patient states that she also has a history of chronic falls and that this is not the first time she had fallen. Patient states that she usually uses a walking cane and sometimes a walker but at the time of the fall she was not using any of the walking aids. Patient denies head or neck injuries, back pain, nausea and vomiting, dizziness, syncope, seizures, chest pain or shortness of breath, abdominal pain, urinary retention, bowel incontinence or saddle paresthesia and loss of consciousness. MD Complaint: fall, other (bilateral knee, bilateral foot and ankle pain) -: Sudden, hour(s) (24) Fall From: standing When Fall Occurred: 24 hours [employer]ILY [employer] Fall Witnessed: yes, by family Place Fall Occurred: home Loss of Consciousness: none Prolonged Down Time?: no Symptoms Prior to Fall: none Location: other (bilateral knees, bilateral ankles and foot) Location - Extremities: Left: Knee (pain), Ankle (pain), Foot (pain and swelling), Right: Knee, Ankle, Foot Severity: severe Severity scale (0 -10): 8 Quality: sharp, aching Context: tripped/slipped Associated Symptoms: denies - Related Data Home Medications Medication Instructions Recorded Confirmed Last Taken Insulin Aspart Prot/Aspart(Nf) 15 units SQ BID 11/22/12 11/03/19 12/23/17 [NovoLOG Mix 70/30 VIAL] Amlodipine Besylate/Benazepril 1 each PO DAILY 11/03/19 11/03/19 Unknown [Amlodipine-Benazepril 10-40 mg] Previous Rx's Medication Instructions Recorded Last Taken Type Pantoprazole [Protonix TAB] 40 mg PO QDAY #30 tablet 11/04/19 Unknown Rx Gabapentin 300 mg PO BID PRN #20 capsule 12/10/19 Unknown Rx Acetaminophen [Acetaminophen 8 650 mg PO Q8HR PRN #30 tablet.er 06/26/20 Unknown Rx Hour] Ondansetron [Zofran Odt] 4 mg PO Q6H PRN #30 tab.rapdis 07/16/20 Unknown Rx Sennosides Tab [Senokot] 8.6 mg PO Q12HR #30 tablet 07/16/20 Unknown Rx amLODIPine 10 mg PO QDAY #30 tablet 07/16/20 Unknown Rx Acetaminophen [Tylenol] 325 mg PO Q8HR PRN #20 capsule 09/04/20 Unknown Rx traMADoL [Ultram 50 MG tab] 50 mg PO Q8HR PRN #12 tablet 09/04/20 Unknown Rx Docusate Sodium [Colace CAP] 100 mg PO BID #60 capsule 10/15/20 Unknown Rx Lactulose [Cephulac] 20 gm PO Q6HR #240 ml 10/15/20 Unknown Rx bisacodyL [Dulcolax suppos] 10 mg LA QDAY #10 supp.rect 10/15/20 Unknown Rx Ibuprofen [Motrin] 400 mg PO Q8H PRN #30 tablet 11/13/20 Unknown Rx traMADoL [Ultram 50 MG tab] 50 mg PO Q8HR PRN #12 tablet 11/13/20 Unknown Rx Allergies Allergy/AdvReac Type Severity Reaction Status Date / Time No Known Allergies Allergy Verified 11/13/20 18:32 ED Review of Systems ROS: Stated complaint: BOTH FEET ARE SWOLLEN Other details as noted in HPI Constitutional: denies: chills, fever Eyes: denies: eye pain, eye discharge, vision change ENT: denies: ear pain, throat pain Respiratory: denies: cough, shortness of breath, wheezing Cardiovascular: denies: chest pain, palpitations Endocrine: no symptoms reported Gastrointestinal: denies: abdominal pain, nausea, diarrhea Genitourinary: denies: urgency, dysuria, discharge Musculoskeletal: arthralgia (bilateral knees, bilateral ankles and feet pain), other (bilateral foot pain and swelling). denies: back pain, joint swelling Skin: denies: rash, lesions Neurological: denies: headache, weakness, paresthesias Psychiatric: denies: anxiety, depression Hematological/Lymphatic: denies: easy bleeding, easy bruising ED Past Medical Hx - Past Medical History Previous Medical History?: No Hx Hypertension: Yes Hx Diabetes: Yes Hx HIV: No Additional medical history: Shingles, Sarcadosis, neuropathy - Surgical History Additional Surgical History: Back Surgery, c section - Social History Smoking Status: Never Smoker Substance Use Type: None - Medications Home Medications: Home Medications Medication Instructions Recorded Confirmed Last Taken Type Insulin Aspart Prot/Aspart(Nf) 15 units SQ BID 11/22/12 11/03/19 12/23/17 History [NovoLOG Mix 70/30 VIAL] Amlodipine Besylate/Benazepril 1 each PO DAILY 11/03/19 11/03/19 Unknown History [Amlodipine-Benazepril 10-40 mg] Pantoprazole [Protonix TAB] 40 mg PO QDAY #30 tablet 11/04/19 Unknown Rx Gabapentin 300 mg PO BID PRN #20 capsule 12/10/19 Unknown Rx Acetaminophen [Acetaminophen 8 650 mg PO Q8HR PRN #30 tablet.er 06/26/20 Unknown Rx Hour] Ondansetron [Zofran Odt] 4 mg PO Q6H PRN #30 tab.rapdis 07/16/20 Unknown Rx Sennosides Tab [Senokot] 8.6 mg PO Q12HR #30 tablet 07/16/20 Unknown Rx amLODIPine 10 mg PO QDAY #30 tablet 07/16/20 Unknown Rx Acetaminophen [Tylenol] 325 mg PO Q8HR PRN #20 capsule 09/04/20 Unknown Rx traMADoL [Ultram 50 MG tab] 50 mg PO Q8HR PRN #12 tablet 09/04/20 Unknown Rx Docusate Sodium [Colace CAP] 100 mg PO BID #60 capsule 10/15/20 Unknown Rx Lactulose [Cephulac] 20 gm PO Q6HR #240 ml 10/15/20 Unknown Rx bisacodyL [Dulcolax suppos] 10 mg LA QDAY #10 supp.rect 10/15/20 Unknown Rx Ibuprofen [Motrin] 400 mg PO Q8H PRN #30 tablet 11/13/20 Unknown Rx traMADoL [Ultram 50 MG tab] 50 mg PO Q8HR PRN #12 tablet 11/13/20 Unknown Rx ED Physical Exam - General Limitations: No Limitations General appearance: alert, in no apparent distress - Head Head exam: Present: atraumatic, normocephalic, normal inspection - Eye Eye exam: Present: normal appearance, PERRL, EOMI Pupils: Present: normal accommodation - ENT ENT exam: Present: normal exam, normal orophraynx, mucous membranes moist, TM's normal bilaterally, normal external ear exam - Neck Neck exam: Present: normal inspection, full ROM - Respiratory Respiratory exam: Present: normal lung sounds bilaterally. Absent: respiratory distress, wheezes, rales, rhonchi, chest wall tenderness, accessory muscle use, decreased breath sounds, prolonged expiratory - Cardiovascular Cardiovascular Exam: Present: regular rate, normal rhythm, normal heart sounds. Absent: systolic murmur, diastolic murmur, rubs, gallop - GI/Abdominal GI/Abdominal exam: Present: soft, normal bowel sounds. Absent: distended, tenderness, guarding, hyperactive bowel sounds, hypoactive bowel sounds, organomegaly - Extremities Exam Extremities exam: Present: normal inspection, full ROM, tenderness (Palpable bilateral knee, ankle and foot tenderness), normal capillary refill, joint swelling (bilateral foot swelling) - Back Exam Back exam: Present: normal inspection, full ROM. Absent: tenderness, CVA tenderness (R), CVA tenderness (L), muscle spasm, paraspinal tenderness, vertebral tenderness - Neurological Exam Neurological exam: Present: alert, oriented X3, CN II-XII intact, normal gait, reflexes normal - Psychiatric Psychiatric exam: Present: normal affect, normal mood - Skin Skin exam: Present: warm, dry, intact, normal color. Absent: rash ED Course Vital Signs 11/13/20 18:27 Temperature 98.1 F Pulse Rate 81 Respiratory 17 Rate Blood Pressure 173/83 O2 Sat by Pulse 100 Oximetry ED Medical Decision Making - Radiology Data Radiology results: report reviewed, image reviewed [facility] [address] [place] [address] XRay Report Signed Patient: FELIPA ORONA MR#: [id number] : 1955 Acct:[id number] Age/Sex: 65 / F ADM Date: 11/13/20 Loc: ED Attending Dr: Ordering Physician: Laura Bhagat MD Date of Service: 11/13/20 Procedure(s): XR foot 2V LT Accession Number(s): [id number] cc: Laura Bhagat MD Fluoro Time In Minutes: LEFT KNEE, 4 VIEWS INDICATION / CLINICAL INFORMATION: fall, knee swelling. COMPARISON: None available. FINDINGS: Prepatellar edema is noted. No fracture, dislocation, or suggestion of joint effusion, however. Very mild degenerative change noted. IMPRESSION: Mild prepatellar soft tissue edema aerated no acute osseous abnormality. LEFT ANKLE, 2 VIEW INDICATION / CLINICAL INFORMATION: fall swelling. COMPARISON: None available. FINDINGS: Prominent lateral soft tissue swelling. No visible fracture or malalignment identified. IMPRESSION: Lateral soft tissue swelling indicative of sprain. No definitive fracture identified. LEFT FOOT 2 VIEWS INDICATION / CLINICAL INFORMATION: fall swelling. COMPARISON: None available. FINDINGS: There is dorsal soft tissue swelling. No acute fracture or malalignment identified. There is prominent degenerative change within the great toe MTP joint. IMPRESSION: Dorsal soft tissue swelling, but no visible fracture or malalignment. Signer Name: Gracie Barnett MD Signed: 11/13/2020 9:08 PM Workstation Name: [id number] Transcribed By: JR Dictated By: Gracie Barnett MD Electronically Authenticated By: Gracie Barnett MD Signed Date/Time: 11/13/202107 DD/ 03 TD/TT: - Medical Decision Making This is a 65-year-old -[place] female with a history of hypertension, [id number] diabetes and chronic degenerative joint disease who presents to the ED with complaint of acute onset persistent severe bilateral knee pain, bilateral ankle pain, and bilateral foot pain and swelling for 24 hours after she lost balance and fell down landing on her knees 24 hours ago without hitting her head. Patient states that the pain has been persistent and worse and that she is unable bear weight on bilateral lower extremities. Patient states that she also has a history of chronic falls and that this is not the first time she had fallen. Patient states that she usually uses a walking cane and sometimes a walker but at the time of the fall she was not using any of the walking aids. In the ED, patient is alert and oriented x3 and is not in any distress but appears to be in pain. Bilateral knee x-rays showed no acute fractures or subluxations but chronic degenerative joint disease. Bilateral ankle x-rays also showed no acute fractures and subluxations. Bilateral foot x- rays showed no acute fractures and subluxation but soft tissue swelling. Patient was therefore treated for pain in the ED and the knees and ankles were splinted with Raimundo wrap. Patient was therefore discharged home on pain m edications and advised to follow-up with her primary care physician in 5 to 7 days for reevaluation. Patient is advised return to the ED immediately if symptoms get worse. - Differential Diagnosis Knee fracture; ankle fracture; foot sprain; foot fracture Critical care attestation.: If time is entered above; I have spent that time in minutes in the direct care of this critically ill patient, excluding procedure time. ED Disposition Clinical Impression: Sprain of both knees Moderate ankle sprain Qualifiers: Encounter type: initial encounter Laterality: unspecified laterality Qualified Code(s): S93.409A - Sprain of unspecified ligament of unspecified ankle, initial encounter Contusion of foot including toes Qualifiers: Encounter type: initial encounter Laterality: unspecified laterality Qualified Code(s): S90.30XA - Contusion of unspecified foot, initial encounter; S90.129A - Contusion of unspecified lesser toe(s) without damage to nail, initial encounter Disposition: 01 HOME / SELF CARE / HOMELESS Is pt being admited?: No Does the pt Need Aspirin: No Condition: Stable Instructions: Ankle Sprain, [id number], Knee Sprain, Adult, [id number], Foot Contusion, [id number] Additional Instructions: The bilateral knee, bilateral ankle and foot x-rays showed no acute fractures or subluxations but degenerative joint disease, and soft tissue swelling of bilateral feet. Therefore your symptoms are likely musculoskeletal following injury. Therefore take pain medications as needed with food, drink plenty of fluids and follow-up with your primary care physician in 5 to 7 days for reevaluation. Return to the ED immediately if symptoms get worse. Prescriptions: Ibuprofen [Motrin] 400 mg PO Q8H PRN #30 tablet PRN Reason: Pain , Severe (7-10) traMADoL [Ultram 50 MG tab] 50 mg PO Q8HR PRN #12 tablet PRN Reason: Pain Referrals: [facility] [Provider Group] - 7-10 days Time of Disposition: 22:53 Print Language: ROMANSH
== END 2020-11-14 00:42 | disposition home or self-care (01) ==
LOC: ED 17:38
DX: S83.92XA Sprain of unspecified site of left knee, initial encounter (principal); S83.91XA Sprain of unspecified site of right knee, initial encounter; S93.409A Sprain of unspecified ligament of unspecified ankle, initial encounter; S90.30XA Contusion of unspecified foot, initial encounter; I10 Essential (primary) hypertension; E11.8 Type 2 diabetes mellitus with unspecified complications; B02.9 Zoster without complications; G62.9 Polyneuropathy, unspecified; Z98.890 Other specified postprocedural states; X58.XXXA Exposure to other specified factors, initial encounter; Y93.89 Activity, other specified; Y92.89 Other specified places as the place of occurrence of the external cause; Y99.8 Other external cause status
CPT/HCPCS: 82962; 99283; Q0162